=== PATIENT | male | born 1940 | race Caucasian/White ===

== ENCOUNTER 2018-09-25 14:52 | Inpatient (IN) ==
[2018-09-25] MEDS ORDERED: methylPREDNISolone 125 MG/2 ML VIAL ONE (15:08)
[2018-09-25] MEDS ORDERED: Ipratropium/Albuterol Neb 3 ML ONE ×2 (15:08→15:15)
[2018-09-25] MEDS ORDERED: Ipratropium/Albuterol Neb 3 ML IH ONE (15:12)
[2018-09-25] MEDS ORDERED: methylPREDNISolone 125 MG/2 ML VIAL IVP ONE (15:12)
[2018-09-25 15:14] LABS: ABG Base Excess 6 mEq/L (-2 to 3); ABG HCO3 37 mEq/L (21-27); ABG Oxygen Saturation 99 % (95-98); ABG PCO2 89 mmHg (35-45); ABG PH 7.23 pH Units (7.32-7.45); ABG PO2 198 mmHg (85-104); ABG TCO2 40 mEq/L (20-26)
[2018-09-25 15:28] LABS: Basophils % 0.3 %; Hematocrit 40.5 % (37.5-50.1); Hemoglobin 12.4 g/dL (12.9-16.9); Immature Granulocytes % 0.9 % (0-4); Lymphocytes # 0.3 K/mcL (0.6-4.6); Lymphocytes % 2.7 %; Mean Corpuscular HGB Conc 30.6 g/dL (31.6-35.5); Mean Corpuscular Hemoglobin 32.2 pg (28.0-33.3); Mean Corpuscular Volume 105.2 fL (83.0-100.0); Mean Platelet Volume 10.4 fL (9.4-12.4); Monocytes # 1.7 K/mcL (0.0-1.3); Monocytes % 13.3 %; Neutrophils # 10.4 K/mcL (1.6-8.9); Platelet Count 246 K/mcL (140-400); Red Blood Count 3.85 M/mcL (4.19-5.50); Red Cell Distribution Width 13.1 % (11.5-14.5); Segmented Neutrophils % 82.8 %; White Blood Count 12.6 K/mcL (4.3-11.1)
--- NOTE | 2018-09-25 15:35 | Emergency Department Note ---
Disposition Clinical Impression: COPD with acute exacerbation, Hyperkalemia, Acute kidney injury, Hypercarbia Respiratory failure Qualifiers: Chronicity: acute Respiratory failure complication: hypoxia and hypercapnia Qualified Code(s): J96.01 - Acute respiratory failure with hypoxia; J96.02 - Acute respiratory failure with hypercapnia Disposition: Still a Patient Condition: Critical Forms: ED Satisfaction Letter Time of Disposition: 17:47 General Adult HPI - General Stated complaint: MIQUEL Time Seen by Provider: 09/25/18 14:53 Source: EMS Limitations: altered mental status Nursing Notes Reviewed: Yes Vital Signs Reviewed: Yes - History of Present Illness HPI Narrative: 77-year-old male presents from home via EMS for evaluation after fall from bed. Per EMS, patient also has some shortness of breath that started yesterday. Family called EMS. Past medical history not collected secondary to patient's medical condition. Review systems not possible secondary to patient's medical condition. Pain Scale: 0 - Related Data Home Medications Medication Instructions Recorded Confirmed Albuterol Sulfate [Proventil 0 puff IH Q4HR PRN 09/25/18 09/25/18 Inhaler] Alendronate Sodium [Fosamax] 70 mg PO QWEEK 09/25/18 09/25/18 Benzonatate [Tessalon] 100 mg PO BID PRN 09/25/18 09/25/18 Budesonide/Formoterol 160/4.5 2 puff IH BIDR 09/25/18 09/25/18 [Symbicort 160/4.5] Calcium Carbonate 650 mg PO DAILY 09/25/18 09/25/18 Ipratropium Neb [Atrovent Neb] 0.5 mg IH Q4HR 09/25/18 09/25/18 Levalbuterol Neb [Xopenex Neb] 1.25 mg IH Q4H 09/25/18 09/25/18 Loratadine [Allergy Relief] 10 mg PO DAILY PRN 09/25/18 09/25/18 Multivitamin [Daily Multiple 1 each PO DAILY 09/25/18 09/25/18 Vitamin] Nicotine Patch [Nicoderm] 14 mg TD DAILY 09/25/18 09/25/18 Omeprazole [PriLOSEC] 20 mg PO DAILY 09/25/18 09/25/18 Sennosides/Docusate Sodium 2 each PO HS 09/25/18 09/25/18 [Senna-Docusate Sodium Tablet] Allergies Allergy/AdvReac Type Severity Reaction Status Date / Time No Known Allergies Allergy Verified 09/25/18 16:42 Limitations: ROS unobtainable due to patients medical condition Past Medical History - Past Medical History Medical history: Reports: COPD, GERD Psychiatric history: Reports: other - Social History Smoking Status: Current every day smoker Physical Exam Vital Signs Reviewed General: Patient is not alert, not answering questions. Evidence of tobacco smoke standing on his arboleda and mustache. He clinically appears protein malnourished. Head: atraumatic, normocephalic Eye: normal appearance, PERRL, EOMI, no scleral icterus, no conjunctival injection ENT: mucous membranes moist, normal external ear exam Neck: normal inspection, trachea midline, full ROM Chest: normal inspection, symmetric chest rise Respiratory: Poor respiratory effort. Prolonged expiratory phase. Bilateral breath sounds are quiet with very poor air entry despite accessory muscle usage. Cardiovascular: Regular rate and rhythm. No clicks, rubs, gallops, or murmors. Normal heart sounds. Abdomen: Scaphoid. Bowel sounds present normoactive. Abdomen is soft, nondistended, and nontender. No guarding or rebound. No organomegaly noted. Musculoskeletal: Spontaneously moving all extremities. Skin: warm, dry, intact. Neuro: GCS 6 (E4, V1, M1). No gag reflex. Psych: Patient's affect is appropriate for situation. - General Limitations: altered mental status General appearance: alert Course Course Narrative: Patient transferred from emergency department room 2 trauma bay in preparation for intubation. Concern for AE COPD with hypercapnea vs traumatic ICH. No external evidence of head trauma. His overall exam is most concerning from a pulmonary and mental status perspective. Reason for intubation is GCS of 6, he is unresponsive to questioning into pain. He has no gag reflex when using tongue depressor. He is nasal cannula. Pulse ox with good waveform shows oxygenation the mid 90s. Team was collected and prepared for RSI emergent intubation. Just prior to pushing the medications, patient was reassessed. He was able to turn his head and look at who is speaking in voluntarily raise one arm to command. RSI intubation on hold. Patient now GCS 12 (E4, V2, M6). Placed on BiPap. ABG shows hypercapnea. 30min on BiPap, patient has markedly improved. GCS 15. Patient would have been a very difficult extubation. [facility] with chronic stable lung nodules. Nicotine dependence on home O2 of 2-3 L/m continuous as well as at bedtime. He was last seen by their pulmonology August 23 or he was started on a p rednisone taper and Z-Koby. CT thorax 03/05 showed right upper lung scarring versus groundglass infiltrate. Cardiac echo 06/04 shows LVEF 30-35%. PMH: Severe COPD, chronic stable lung nodules, chronic environmental allergies, GERD, diverticular disease, chronic anemia, history of gallbladder sludge with transaminitis, osteoporosis with degenerative disc disease, carotid atherosclerosis, cataract Patient's daughter and grandson bedside. Discussed with them the available information at this time as well as plan of care. They are in agreement. Discussed with them the patient's wishes for CODE STATUS. They relay that he informed the [facility] he is to be full code. We will move forward with full CODE STATUS. All questions answered. 15:50 EKG dated 09/25/2018 at 15:07 interpreted as sinus tachycardia with a rate of 108. [place] 153, QRS 142, QTC 464. Upper branch block QRS is appropriately di scordant. No previous EKG for comparison. After proximal we 1 hour, patient's mentation did transiently improve with BiPAP. He did start to wheeze after the triple dose of DuoNeb's after which a triple dose of albuterol was ordered. After total ED stay of 2 hours, patient's mentation decompensated. He was not responsive to verbal or painful stimuli. His repeat ABG showed persistent resp iratory acidosis. I discussed this with the family. They were agreeable to moving forward with intubation. Patient was RSI intubated with etomidate. He was not paralyzed given his poor mental state. Patient was successfully intermittent first try by Dr. Talley. Post intubation sedation and analgesia with Precedex and fentanyl. Post intubation x-ray showed the tip of the ET tube is above the juanita. This was withdrawn 1 cm with no repeat imaging. NG tube was placed. Patient's potassium was 6.0. He was given 10 units IV insulin, one amp of D50, Kayexalate through the NG tube. Patient will need to be admitted to the ICU given his intubated status. CT head and C-spine are pending. He has been signed out to Dr. Adan with images pending. Vital Signs Temperature 97.0 F L 09/25/18 15:13 Pulse Rate 108 09/25/18 15:13 Respiratory Rate 28 09/25/18 15:13 Blood Pressure 102/60 09/25/18 15:13 O2 Sat by Pulse Oximetry 99 09/25/18 15:13 Temperature 97.0 F L 09/25/18 15:13 Pulse Rate 111 09/25/18 15:34 Respiratory Rate 25 09/25/18 15:34 Blood Pressure 123/82 09/25/18 15:34 O2 Sat by Pulse Oximetry 98 09/25/18 15:34 Oxygen Delivery Oxygen Delivery Bipap Medical Decision Making - Lab Data Result diagrams: 09/25/18 15:02 09/25/18 15:02 Lab Results 09/25/18 09/25/18 09/25/18 Range/Units 15:02 15:02 15:02 WBC 12.6 H (4.3-11.1) K/mcL RBC 3.85 L (4.19-5.50) M/mcL Hgb 12.4 L (12.9-16.9) g/dL Hct 40.5 (37.5-50.1) % MCV 105.2 H (83.0-100.0) fL MCH 32.2 (28.0-33.3) pg MCHC 30.6 L (31.6-35.5) g/dL RDW 13.1 (11.5-14.5) % Plt Count 246 (140-400) K/mcL MPV 10.4 (9.4-12.4) fL Immature Gran % 0.9 (0-4) % Seg Neutrophils % 82.8 % Lymphocytes % 2.7 % Monocytes % 13.3 % Eosinophils % 0.0 % Basophils % 0.3 % Neutrophils # 10.4 H (1.6-8.9) K/mcL Lymphocytes # 0.3 L (0.6-4.6) K/mcL Monocytes # 1.7 H (0.0-1.3) K/mcL Eosinophils # 0.0 (0.0-0.6) K/mcL Basophils # 0.0 (0.0-0.2) K/mcL ABG pH (7.32-7.45) pH Units ABG pCO2 (35-45) mmHg ABG pO2 (85-104) mmHg ABG HCO3 (21-27) mEq/L ABG Total CO2 (20-26) mEq/L ABG O2 Saturation (95-98) % ABG Base Excess (-2 to 3) mEq/L O2 Delivery Device Inspired O2 (1-15=lpm [id number]=%) Sodium 139 (136-145) mEq/L Potassium 6.0 H (3.5-5.1) mEq/L Chloride 93 L (98-107) mEq/L Carbon Dioxide 37 H (23-29) mEq/L BUN 29 H (8-23) mg/dL Creatinine 1.36 H (0.70-1.30) mg/dL Est GFR ( Amer) > 60 (> 60) Est GFR (Non-Af Amer) 51 L (> 60) BUN/Creatinine Ratio 21 (6-26) Glucose 146 H (70-105) mg/dL Calculated Osmolality 296 (280-300) Lactic Acid 0.9 (0.5-2.2) mmol/L Calcium 9.8 (8.6-10.3) mg/dL Troponin I < 0.03 (< 0.04) ng/mL Person Notif of Crit 09/25/18 Range/Units 15:09 WBC (4.3-11.1) K/mcL RBC (4.19-5.50) M/mcL Hgb (12.9-16.9) g/dL Hct (37.5-50.1) % MCV (83.0-100.0) fL MCH (28.0-33.3) pg MCHC (31.6-35.5) g/dL RDW (11.5-14.5) % Plt Count (140-400) K/mcL MPV (9.4-12.4) fL Immature Gran % (0-4) % Seg Neutrophils % % Lymphocytes % % Monocytes % % Eosinophils % % Basophils % % Neutrophils # (1.6-8.9) K/mcL Lymphocytes # (0.6-4.6) K/mcL Monocytes # (0.0-1.3) K/mcL Eosinophils # (0.0-0.6) K/mcL Basophils # (0.0-0.2) K/mcL ABG pH 7.23 L (7.32-7.45) pH Units ABG pCO2 89 H* (35-45) mmHg ABG pO2 198 H (85-104) mmHg ABG HCO3 37 H (21-27) mEq/L ABG Total CO2 40 H (20-26) mEq/L ABG O2 Saturation 99 H (95-98) % ABG Base Excess 6 H (-2 to 3) mEq/L O2 Delivery Device Cannula Inspired O2 3.0 (1-15=lpm [id number]=%) Sodium (136-145) mEq/L Potassium (3.5-5.1) mEq/L Chloride (98-107) mEq/L Carbon Dioxide (23-29) mEq/L BUN (8-23) mg/dL Creatinine (0.70-1.30) mg/dL Est GFR ( Amer) (> 60) Est GFR (Non-Af Amer) (> 60) BUN/Creatinine Ratio (6-26) Glucose (70-105) mg/dL Calculated Osmolality (280-300) Lactic Acid (0.5-2.2) mmol/L Calcium (8.6-10.3) mg/dL Troponin I (< 0.04) ng/mL Person Notif of [facility]
[2018-09-25] MEDS ORDERED: *HR* LORazepam 2 MG/ML VIAL IVP ONE (15:40)
--- NOTE | 2018-09-25 15:40 | Emergency Department Note ---
Disposition Clinical Impression: Acute respiratory failure Qualifiers: Respiratory failure complication: hypercapnia Qualified Code(s): J96.02 - Acute respiratory failure with hypercapnia Disposition: Admitted As Inpatient Condition: Serious [facility]errals: [facility] [Primary Care Provider] - Forms: ED Satisfaction Letter Time of Disposition: 17:36 General Adult HPI - General Chief complaint: ED Altered Mental Status Stated complaint: MIQUEL Time Seen by Provider: 09/25/18 14:53 Source: EMS Limitations: altered mental status - History of Present Illness Pain Scale: 0 - Related Data Home Medications Medication Instructions Recorded Confirmed Albuterol Sulfate [Proventil 0 puff IH Q4HR PRN 09/25/18 09/25/18 Inhaler] Alendronate Sodium [Fosamax] 70 mg PO QWEEK 09/25/18 09/25/18 Benzonatate [Tessalon] 100 mg PO BID PRN 09/25/18 09/25/18 Budesonide/Formoterol 160/4.5 2 puff IH BIDR 09/25/18 09/25/18 [Symbicort 160/4.5] Calcium Carbonate 650 mg PO DAILY 09/25/18 09/25/18 Ipratropium Neb [Atrovent Neb] 0.5 mg IH Q4HR 09/25/18 09/25/18 Levalbuterol Neb [Xopenex Neb] 1.25 mg IH Q4H 09/25/18 09/25/18 Loratadine [Allergy Relief] 10 mg PO DAILY PRN 09/25/18 09/25/18 Multivitamin [Daily Multiple 1 each PO DAILY 09/25/18 09/25/18 Vitamin] Nicotine Patch [Nicoderm] 14 mg TD DAILY 09/25/18 09/25/18 Omeprazole [PriLOSEC] 20 mg PO DAILY 09/25/18 09/25/18 Sennosides/Docusate Sodium 2 each PO HS 09/25/18 09/25/18 [Senna-Docusate Sodium Tablet] Allergies Allergy/AdvReac Type Severity Reaction Status Date / Time No Known Allergies Allergy Verified 09/25/18 16:42 Past Medical History - Past Medical History Medical history: Reports: COPD, GERD Psychiatric history: Reports: other - Social History Smoking Status: Current every day smoker Physical Exam - General Limitations: altered mental status General appearance: alert Course Vital Signs Temperature 97.0 F L 07/10/19 15:13 Pulse Rate 108 09/25/18 15:13 Respiratory Rate 28 09/25/18 15:13 Blood Pressure 102/60 09/25/18 15:13 O2 Sat by Pulse Oximetry 99 09/25/18 15:13 Temperature 97.0 F L 09/25/18 15:13 Pulse Rate 94 09/25/18 16:41 Respiratory Rate 16 09/25/18 16:41 Blood Pressure 81/58 09/25/18 16:44 O2 Sat by Pulse Oximetry 92 09/25/18 16:41 Oxygen Delivery Oxygen Delivery Bipap Medical Decision Making - Lab Data Result diagrams: 09/25/18 15:02 09/25/18 15:02 Lab Results 09/25/18 09/25/18 09/25/18 Range/Units 15:02 15:02 15:02 WBC 12.6 H (4.3-11.1) K/mcL RBC 3.85 L (4.19-5.50) M/mcL Hgb 12.4 L (12.9-16.9) g/dL Hct 40.5 (37.5-50.1) % MCV 105.2 H (83.0-100.0) fL MCH 32.2 (28.0-33.3) pg MCHC 30.6 L (31.6-35.5) g/dL RDW 13.1 (11.5-14.5) % Plt Count 246 (140-400) K/mcL MPV 10.4 (9.4-12.4) fL Immature Gran % 0.9 (0-4) % Seg Neutrophils % 82.8 % Lymphocytes % 2.7 % Monocytes % 13.3 % Eosinophils % 0.0 % Basophils % 0.3 % Neutrophils # 10.4 H (1.6-8.9) K/mcL Lymphocytes # 0.3 L (0.6-4.6) K/mcL Monocytes # 1.7 H (0.0-1.3) K/mcL Eosinophils # 0.0 (0.0-0.6) K/mcL Basophils # 0.0 (0.0-0.2) K/mcL ABG pH (7.32-7.45) pH Units ABG pCO2 (35-45) mmHg ABG pO2 (85-104) mmHg ABG HCO3 (21-27) mEq/L ABG Total CO2 (20-26) mEq/L ABG O2 Saturation (95-98) % ABG Base Excess (-2 to 3) mEq/L Respiration Rate O2 Delivery Device Inspired O2 (1-15=lpm [id number]=%) Tidal Volume cc PEEP cm H2O Sodium 139 (136-145) mEq/L Potassium 6.0 H (3.5-5.1) mEq/L Chloride 93 L (98-107) mEq/L Carbon Dioxide 37 H (23-29) mEq/L BUN 29 H (8-23) mg/dL Creatinine 1.36 H (0.70-1.30) mg/dL Est GFR ( Amer) > 60 (> 60) Est GFR (Non-Af Amer) 51 L (> 60) BUN/Creatinine Ratio 21 (6-26) Glucose 146 H (70-105) mg/dL Calculated Osmolality 296 (280-300) Lactic Acid 0.9 (0.5-2.2) mmol/L Calcium 9.8 (8.6-10.3) mg/dL Creatine Kinase 55 (30-223) Units/L Troponin I < 0.03 (< 0.04) ng/mL B-Natriuretic Peptide (Less than 100) pg/mL Person Notif of Crit 09/25/18 09/25/18 09/25/18 Range/Units 15:02 15:09 16:28 WBC (4.3-11.1) K/mcL RBC (4.19-5.50) M/mcL Hgb (12.9-16.9) g/dL Hct (37.5-50.1) % MCV (83.0-100.0) fL MCH (28.0-33.3) pg MCHC (31.6-35.5) g/dL RDW (11.5-14.5) % Plt Count (140-400) K/mcL MPV (9.4-12.4) fL Immature Gran % (0-4) % Seg Neutrophils % % Lymphocytes % % Monocytes % % Eosinophils % % Basophils % % Neutrophils # (1.6-8.9) K/mcL Lymphocytes # (0.6-4.6) K/mcL Monocytes # (0.0-1.3) K/mcL Eosinophils # (0.0-0.6) K/mcL Basophils # (0.0-0.2) K/mcL ABG pH 7.23 L 7.27 L (7.32-7.45) pH Units ABG pCO2 89 H* 80 H* (35-45) mmHg ABG pO2 198 H 64 L D (85-104) mmHg ABG HCO3 37 H 37 H (21-27) mEq/L ABG Total CO2 40 H 40 H (20-26) mEq/L ABG O2 Saturation 99 H 87 L (95-98) % ABG Base Excess 6 H 7 H (-2 to 3) mEq/L Respiration Rate 10 O2 Delivery Device Cannula BiPAP Inspired O2 3.0 28.0 (1-15=lpm [id number]=%) Tidal Volume 500 cc PEEP 8 cm H2O Sodium (136-145) mEq/L Potassium (3.5-5.1) mEq/L Chloride (98-107) mEq/L Carbon Dioxide (23-29) mEq/L BUN (8-23) mg/dL Creatinine (0.70-1.30) mg/dL Est GFR ( Amer) (> 60) Est GFR (Non-Af Amer) (> 60) BUN/Creatinine Ratio (6-26) Glucose (70-105) mg/dL Calculated Osmolality (280-300) Lactic Acid (0.5-2.2) mmol/L Calcium (8.6-10.3) mg/dL Creatine Kinase (30-223) Units/L Troponin I (< 0.04) ng/mL B-Natriuretic Peptide 126 H (Less than 100) pg/mL Person Notif of Kimmy Jenniabig[facility] whipple see Attestation Statement - Attestation Attestation: I examined this patient and my medical decision-making was reviewed with the Resident Physician. I agree with the documented findings, disposition and treatment plan as described except to the extent set forth below. Patient presents to the ED from home. Family called because he fell out of bed. He is also been having difficulty breathing for a day. No further history is provided, and patient cannot tell you anything. On examination he is in a moderate amount of respiratory distress. Accessory muscle use. Diffuse expiratory wheezing and decreased air exchange. Sats are 97 on oxygen. Plan. The patient was in restaurant distress and poorly responsive. He was able to follow some basic commands. We emigdio an ABG that shows hypercapnia with a restaurant acidosis. He is placed on BiPAP. 3. Steroids. We will give him antibiotics as well. Patient will be admitted. Repeat ABG in 1 hour. Repeat ABG is improved. PH is corrected. CO2 is improved. Awaiting head CT and neck CT. Will be admitted to medicine. Patient had improvement, and then decompensated. Patient became unresponsive. Increased work of breathing. We did make the decision to intubate the patient. He was intubated by with my supervision. 7.5 ET tube. X-ray pending at this time. CT is still pending. Placing sedation orders. Patient's all be admitted to ICU. Patient signed out to Dr. Adan pending CT scans and admission. Hyperkalemia was treated.
[2018-09-25 15:44] LABS: BUN/Creatinine Ratio 21 (6-26); Blood Urea Nitrogen 29 mg/dL (8-23); Calcium 9.8 mg/dL (8.6-10.3); Carbon Dioxide 37 mEq/L (23-29); Chloride 93 mEq/L (98-107); Glucose 146 mg/dL (70-105); Osmolality,Calculated 296 (280-300); Sodium 139 mEq/L (136-145); eGFR For African Americans > 60 (> 60); eGFR For Non-African Americans 51 (> 60)
[2018-09-25 15:45] LABS: Troponin I < 0.03 ng/mL (< 0.04)
[2018-09-25 16:34] LABS: ABG Base Excess 7 mEq/L (-2 to 3); ABG HCO3 37 mEq/L (21-27); ABG Oxygen Saturation 87 % (95-98); ABG PCO2 80 mmHg (35-45); ABG PH 7.27 pH Units (7.32-7.45); ABG PO2 64 mmHg (85-104); ABG TCO2 40 mEq/L (20-26); Blood Gas PEEP 8 cm H2O; Blood Gas VT 500 cc
[2018-09-25] MEDS ORDERED: cefTRIAXone 1,000 MG in 0.9 % Sodium Chloride Mini Bag 100 ML IVPB ONE (16:35)
[2018-09-25] MEDS ORDERED: 0.9 % Sodium Chloride 500 ML IVC ONE (16:35)
[2018-09-25] MEDS ORDERED: Azithromycin 500 MG in D5% in Water 250 ML IVPB ONE (16:35)
[2018-09-25] MEDS: 0.9 % Sodium Chloride 1,000 ML ONE ×2 (16:36→16:38)
[2018-09-25] MEDS ORDERED: Albuterol 2.5 MG/3 ML NEBULIZER IH ONE (16:55)
[2018-09-25] MEDS ORDERED: *HR* Dextrose 50 % in Water (Syg) 50 ML SYRINGE IVP ONE (17:05)
[2018-09-25] MEDS ORDERED: Insulin Human Regular 10 UNIT in 0.9 % Sodium Chloride 10 ML IV ONE (17:05)
[2018-09-25] MEDS ORDERED: Dexmedetomidine HCl 400 MCG/100 ML MLS IVC ONE (17:13)
[2018-09-25] MEDS ORDERED: *HR* Etomidate 20 MG/10 ML AMPUL IVP ONE (17:20)
[2018-09-25] MEDS ORDERED: *HR* FentaNYL (PF) 100 MCG/2 ML VIAL ONE (17:20)
[2018-09-25] MEDS ORDERED: *HR* Midazolam HCl 5 MG/5 ML VIAL IVP ONE (17:20)
[2018-09-25 17:23] LABS: Creatine Kinase 55 Units/L (30-223)
[2018-09-25] MEDS ORDERED: *HR* FentaNYL (PF) 100 MCG/2 ML VIAL IVP ONE (17:23)
[2018-09-25] MEDS: Dexmedetomidine HCl 400 MCG/100 ML MLS IVC SCH (17:40)
[2018-09-25] MEDS: FentaNYL (PF) 1,000 MCG in 0.9 % Sodium Chloride 80 ML IVC SCH (17:41)
--- NOTE | 2018-09-25 17:43 | Emergency Department Note ---
Disposition Clinical Impression: COPD with acute exacerbation, Hyperkalemia, Acute kidney injury, Hypercarbia Acute respiratory failure Qualifiers: Respiratory failure complication: hypercapnia Qualified Code(s): J96.02 - Acute respiratory failure with hypercapnia Respiratory failure Qualifiers: Chronicity: acute Respiratory failure complication: hypoxia and hypercapnia Qualified Code(s): J96.01 - Acute respiratory failure with hypoxia; J96.02 - Acute respiratory failure with hypercapnia Hypotension Qualifiers: Hypotension type: hypotension due to hypovolemia Qualified Code(s): I95.89 - Other hypotension; E86.1 - Hypovolemia Disposition: Admitted As Inpatient Condition: Critical [facility]: [facility]Primary Care Provider[facility] - Forms: ED Satisfaction Letter Time of Disposition: 18:46 General Adult HPI - General Chief complaint: ED Altered Mental Status Stated complaint: MIQUEL Time Seen by Provider: 09/25/18 14:53 Source: EMS Limitations: altered mental status Nursing Notes Reviewed: Yes Vital Signs Reviewed: Yes - History of Present Illness HPI Narrative: Patient signed out to my care at 1741 by the departing ED attending and resident team of Dr. Jenni PIERRE and Tommy Aceves. Please see copy their note for details of the history physical examination evaluation management intubation ventilator management and sedation up into the point of sign out. Basically patient was COPD came in respiratory failure failed BiPAP got intubated is on fentanyl and Precedex now patient did fall getting a CT scan of the head and the C-spine ICU resident is already being notified patient will be admitted to the hospitalist to the intensive care unit after CT scans are reviewed. Admission disposition pending Pain Scale: 0 - Related Data Home Medications Medication Instructions Recorded Confirmed Albuterol Sulfate [Proventil 0 puff IH Q4HR PRN 09/25/18 09/25/18 Inhaler] Alendronate Sodium [Fosamax] 70 mg PO QWEEK 09/25/18 09/25/18 Benzonatate [Tessalon] 100 mg PO BID PRN 09/25/18 09/25/18 Budesonide/Formoterol 160/4.5 2 puff IH BIDR 09/25/18 09/25/18 [Symbicort 160/4.5] Calcium Carbonate 650 mg PO DAILY 09/25/18 09/25/18 Ipratropium Neb [Atrovent Neb] 0.5 mg IH Q4HR 09/25/18 09/25/18 Levalbuterol Neb [Xopenex Neb] 1.25 mg IH Q4H 09/25/18 09/25/18 Loratadine [Allergy Relief] 10 mg PO DAILY PRN 09/25/18 09/25/18 Multivitamin [Daily Multiple 1 each PO DAILY 09/25/18 09/25/18 Vitamin] Nicotine Patch [Nicoderm] 14 mg TD DAILY 09/25/18 09/25/18 Omeprazole [PriLOSEC] 20 mg PO DAILY 09/25/18 09/25/18 Sennosides/Docusate Sodium 2 each PO HS 09/25/18 09/25/18 [Senna-Docusate Sodium Tablet] Allergies Allergy/AdvReac Type Severity Reaction Status Date / Time No Known Allergies Allergy Verified 09/25/18 16:42 Past Medical History - Past Medical History Medical history: Reports: COPD, GERD Psychiatric history: Reports: other - Social History Smoking Status: Current every day smoker Physical Exam - General Limitations: altered mental status General appearance: alert Course - Reevaluation(s) Reevaluation #1: Patient's ED workup is complete. Patient's CT scan of the head and the C-spine read by radiology as no acute process fracture or dislocation. Patient's chest x-ray showed the ET tube about 1/2 cm too deep respiratory therapy pulled back. Patient was transported came back from CT scan when he had a towel down the Precedex and the fentanyl became a little hypotensive in the low 80s high 70s patient is getting a liter bolus. Discussed case with the hospitalist Dr. Osuna patient was accepted to the ICU for respiratory failure hypertension and COPD. I provided an additional 30 minutes critical care service. ICU RESIDENT DR. LEON evaluated the patient in the emergency department. Patient be transferred to the ICU in stable but guarded condition Time: 18:44 Vital Signs Temperature 97.0 F L 09/25/18 15:13 Pulse Rate 108 09/25/18 15:13 Respiratory Rate 28 09/25/18 15:13 Blood Pressure 102/60 09/25/18 15:13 O2 Sat by Pulse Oximetry 99 09/25/18 15:13 Temperature 97.0 F L 09/25/18 15:13 Pulse Rate 82 09/25/18 18:41 Respiratory Rate 14 09/25/18 18:41 Blood Pressure 94/67 09/25/18 18:41 O2 Sat by Pulse Oximetry 95 09/25/18 18:41 Oxygen Delivery Oxygen Delivery Ventilator Medical Decision Making - Lab Data Result diagrams: 09/25/18 15:02 09/25/18 15:02 Lab Results 09/25/18 09/25/18 09/25/18 Range/Units 15:02 15:02 15:02 WBC 12.6 H (4.3-11.1) K/mcL RBC 3.85 L (4.19-5.50) M/mcL Hgb 12.4 L (12.9-16.9) g/dL Hct 40.5 (37.5-50.1) % MCV 105.2 H (83.0-100.0) fL MCH 32.2 (28.0-33.3) pg MCHC 30.6 L (31.6-35.5) g/dL RDW 13.1 (11.5-14.5) % Plt Count 246 (140-400) K/mcL MPV 10.4 (9.4-12.4) fL Immature Gran % 0.9 (0-4) % Seg Neutrophils % 82.8 % Lymphocytes % 2.7 % Monocytes % 13.3 % Eosinophils % 0.0 % Basophils % 0.3 % Neutrophils # 10.4 H (1.6-8.9) K/mcL Lymphocytes # 0.3 L (0.6-4.6) K/mcL Monocytes # 1.7 H (0.0-1.3) K/mcL Eosinophils # 0.0 (0.0-0.6) K/mcL Basophils # 0.0 (0.0-0.2) K/mcL ABG pH (7.32-7.45) pH Units ABG pCO2 (35-45) mmHg ABG pO2 (85-104) mmHg ABG HCO3 (21-27) mEq/L ABG Total CO2 (20-26) mEq/L ABG O2 Saturation (95-98) % ABG Base Excess (-2 to 3) mEq/L Respiration Rate O2 Delivery Device Blood Gas Modality Inspired O2 (1-15=lpm ir31-175=%) Tidal Volume cc PEEP cm H2O Sodium 139 (136-145) mEq/L Potassium 6.0 H (3.5-5.1) mEq/L Chloride 93 L (98-107) mEq/L Carbon Dioxide 37 H (23-29) mEq/L BUN 29 H (8-23) mg/dL Creatinine 1.36 H (0.70-1.30) mg/dL Est GFR ( Amer) > 60 (> 60) Est GFR (Non-Af Amer) 51 L (> 60) BUN/Creatinine Ratio 21 (6-26) Glucose 146 H (70-105) mg/dL Calculated Osmolality 296 (280-300) Lactic Acid 0.9 (0.5-2.2) mmol/L Calcium 9.8 (8.6-10.3) mg/dL Creatine Kinase 55 (30-223) Units/L Troponin I < 0.03 (< 0.04) ng/mL B-Natriuretic Peptide (Less than 100) pg/mL Person Notif of Crit 09/25/18 09/25/18 09/25/18 Range/Units 15:02 15:09 16:28 WBC (4.3-11.1) K/mcL RBC (4.19-5.50) M/mcL Hgb (12.9-16.9) g/dL Hct (37.5-50.1) % MCV (83.0-100.0) fL MCH (28.0-33.3) pg MCHC (31.6-35.5) g/dL RDW (11.5-14.5) % Plt Count (140-400) K/mcL MPV (9.4-12.4) fL Immature Gran % (0-4) % Seg Neutrophils % % Lymphocytes % % Monocytes % % Eosinophils % % Basophils % % Neutrophils # (1.6-8.9) K/mcL Lymphocytes # (0.6-4.6) K/mcL Monocytes # (0.0-1.3) K/mcL Eosinophils # (0.0-0.6) K/mcL Basophils # (0.0-0.2) K/mcL ABG pH 7.23 L 7.27 L (7.32-7.45) pH Units ABG pCO2 89 H* 80 H* (35-45) mmHg ABG pO2 198 H 64 L D (85-104) mmHg ABG HCO3 37 H 37 H (21-27) mEq/L ABG Total CO2 40 H 40 H (20-26) mEq/L ABG O2 Saturation 99 H 87 L (95-98) % ABG Base Excess 6 H 7 H (-2 to 3) mEq/L Respiration Rate 10 O2 Delivery Device Cannula BiPAP Blood Gas Modality Inspired O2 3.0 28.0 (1-15=lpm rq16-075=%) Tidal Volume 500 cc PEEP 8 cm H2O Sodium (136-145) mEq/L Potassium (3.5-5.1) mEq/L Chloride (98-107) mEq/L Carbon Dioxide (23-29) mEq/L BUN (8-23) mg/dL Creatinine (0.70-1.30) mg/dL Est GFR ( Amer) (> 60) Est GFR (Non-Af Amer) (> 60) BUN/Creatinine Ratio (6-26) Glucose (70-105) mg/dL Calculated Osmolality (280-300) Lactic Acid (0.5-2.2) mmol/L Calcium (8.6-10.3) mg/dL Creatine Kinase (30-223) Units/L Troponin I (< 0.04) ng/mL B-Natriuretic Peptide 126 H (Less than 100) pg/mL Person Notif of [facility] see 09/25/18 Range/Units 18:14 WBC (4.3-11.1) K/mcL RBC (4.19-5.50) M/mcL Hgb (12.9-16.9) g/dL Hct (37.5-50.1) % MCV (83.0-100.0) fL MCH (28.0-33.3) pg MCHC (31.6-35.5) g/dL RDW (11.5-14.5) % Plt Count (140-400) K/mcL MPV (9.4-12.4) fL Immature Gran % (0-4) % Seg Neutrophils % % Lymphocytes % % Monocytes % % Eosinophils % % Basophils % % Neutrophils # (1.6-8.9) K/mcL Lymphocytes # (0.6-4.6) K/mcL Monocytes # (0.0-1.3) K/mcL Eosinophils # (0.0-0.6) K/mcL Basophils # (0.0-0.2) K/mcL ABG pH 7.31 L (7.32-7.45) pH Units ABG pCO2 69 H (35-45) mmHg ABG pO2 200 H D (85-104) mmHg ABG HCO3 35 H (21-27) mEq/L ABG Total CO2 37 H (20-26) mEq/L ABG O2 Saturation 100 H (95-98) % ABG Base Excess 7 H (-2 to 3) mEq/L Respiration Rate 14 O2 Delivery Device Adult Vent Blood Gas Modality ASSIST CONTROL Inspired O2 50.0 (1-15=lpm dp04-203=%) Tidal Volume 500 cc PEEP 5 cm H2O Sodium (136-145) mEq/L Potassium (3.5-5.1) mEq/L Chloride (98-107) mEq/L Carbon Dioxide (23-29) mEq/L BUN (8-23) mg/dL Creatinine (0.70-1.30) mg/dL Est GFR ( Amer) (> 60) Est GFR (Non-Af Amer) (> 60) BUN/Creatinine Ratio (6-26) Glucose (70-105) mg/dL Calculated Osmolality (280-300) Lactic Acid (0.5-2.2) mmol/L Calcium (8.6-10.3) mg/dL Creatine Kinase (30-223) Units/L Troponin I (< 0.04) ng/mL B-Natriuretic Peptide (Less than 100) pg/mL Person Notif of Crit
--- NOTE | 2018-09-25 17:46 | Emergency Department Note ---
Disposition Clinical Impression: COPD with acute exacerbation, Hyperkalemia, Acute kidney injury, Hypercarbia, Hypotension Acute respiratory failure Qualifiers: Respiratory failure complication: hypercapnia Qualified Code(s): J96.02 - Acute respiratory failure with hypercapnia Respiratory failure Qualifiers: Chronicity: acute Respiratory failure complication: hypoxia and hypercapnia Qualified Code(s): J96.01 - Acute respiratory failure with hypoxia Disposition: Admitted As Inpatient Condition: Critical Time of Disposition: 17:51 General Adult HPI - General Chief complaint: ED Altered Mental Status Stated complaint: MIQUEL Time Seen by Provider: 09/25/18 14:53 Source: EMS Limitations: altered mental status - History of Present Illness HPI Narrative: This note is for a resident procedure note only for endotracheal intubation. Pain Scale: 0 - Related Data Home Medications Medication Instructions Recorded Confirmed Albuterol Sulfate [Proventil 0 puff IH Q4HR PRN 09/25/18 09/25/18 Inhaler] Alendronate Sodium [Fosamax] 70 mg PO QWEEK 09/25/18 09/25/18 Benzonatate [Tessalon] 100 mg PO BID PRN 09/25/18 09/25/18 Budesonide/Formoterol 160/4.5 2 puff IH BIDR 09/25/18 09/25/18 [Symbicort 160/4.5] Calcium Carbonate 650 mg PO DAILY 09/25/18 09/25/18 Ipratropium Neb [Atrovent Neb] 0.5 mg IH Q4HR 09/25/18 09/25/18 Levalbuterol Neb [Xopenex Neb] 1.25 mg IH Q4H 09/25/18 09/25/18 Loratadine [Allergy Relief] 10 mg PO DAILY PRN 09/25/18 09/25/18 Multivitamin [Daily Multiple 1 each PO DAILY 09/25/18 09/25/18 Vitamin] Nicotine Patch [Nicoderm] 14 mg TD DAILY 09/25/18 09/25/18 Omeprazole [PriLOSEC] 20 mg PO DAILY 09/25/18 09/25/18 Sennosides/Docusate Sodium 2 each PO HS 09/25/18 09/25/18 [Senna-Docusate Sodium Tablet] Allergies Allergy/AdvReac Type Severity Reaction Status Date / Time No Known Allergies Allergy Verified 09/25/18 16:42 Past Medical History - Past Medical History Medical history: Reports: COPD, GERD Psychiatric history: Reports: other - Social History Smoking Status: Current every day smoker Physical Exam - General Limitations: altered mental status General appearance: alert Course Vital Signs Temperature 97.0 F L 09/25/18 15:13 Pulse Rate 108 09/25/18 15:13 Respiratory Rate 28 09/25/18 15:13 Blood Pressure 102/60 09/25/18 15:13 O2 Sat by Pulse Oximetry 99 09/25/18 15:13 Temperature 97.0 F L 09/25/18 15:13 Pulse Rate 94 09/25/18 16:41 Respiratory Rate 16 09/25/18 16:41 Blood Pressure 81/58 09/25/18 16:44 O2 Sat by Pulse Oximetry 92 09/25/18 16:41 Oxygen Delivery Oxygen Delivery Bipap Procedures - Intubation Time out performed: Yes sedative: Etomidate Mg Given: 20 Laryngoscope: Douglas ET Tube Size: 7.5 ET Tube Uncuffed: Yes Tube Secured Depth (cm): 23 Tube Secured Location: lips Tube Placement Confirmation: visualized tube passing through cords, equal breath sounds bilaterally, no breath sounds over epigastrium Patient Tolerated Procedure: well Intubation Complications: none Additional Comments: Patient was given 10 mg of Versed after the procedure as he was fighting the tube, chest x-ray showed that the tube was at the juanita so we withdrew 1 cm The patient was sedated with Precedex and fentanyl as propofol was not considered an appropriate choice due to fears of hypotension. Medical Decision Making - Lab Data Result diagrams: 09/27/18 03:55 09/27/18 03:55 Lab Results 09/25/18 09/25/18 09/25/18 Range/Units 15:02 15:02 15:02 WBC 12.6 H (4.3-11.1) K/mcL RBC 3.85 L (4.19-5.50) M/mcL Hgb 12.4 L (12.9-16.9) g/dL Hct 40.5 (37.5-50.1) % MCV 105.2 H (83.0-100.0) fL MCH 32.2 (28.0-33.3) pg MCHC 30.6 L (31.6-35.5) g/dL RDW 13.1 (11.5-14.5) % Plt Count 246 (140-400) K/mcL MPV 10.4 (9.4-12.4) fL Immature Gran % 0.9 (0-4) % Seg Neutrophils % 82.8 % Lymphocytes % 2.7 % Monocytes % 13.3 % Eosinophils % 0.0 % Basophils % 0.3 % Neutrophils # 10.4 H (1.6-8.9) K/mcL Lymphocytes # 0.3 L (0.6-4.6) K/mcL Monocytes # 1.7 H (0.0-1.3) K/mcL Eosinophils # 0.0 (0.0-0.6) K/mcL Basophils # 0.0 (0.0-0.2) K/mcL ABG pH (7.32-7.45) pH Units ABG pCO2 (35-45) mmHg ABG pO2 (85-104) mmHg ABG HCO3 (21-27) mEq/L ABG Total CO2 (20-26) mEq/L ABG O2 Saturation (95-98) % ABG Base Excess (-2 to 3) mEq/L Respiration Rate O2 Delivery Device Inspired O2 (1-15=lpm ao58-691=%) Tidal Volume cc PEEP cm H2O Sodium 139 (136-145) mEq/L Potassium 6.0 H (3.5-5.1) mEq/L Chloride 93 L (98-107) mEq/L Carbon Dioxide 37 H (23-29) mEq/L BUN 29 H (8-23) mg/dL Creatinine 1.36 H (0.70-1.30) mg/dL Est GFR ( Amer) > 60 (> 60) Est GFR (Non-Af Amer) 51 L (> 60) BUN/Creatinine Ratio 21 (6-26) Glucose 146 H (70-105) mg/dL Calculated Osmolality 296 (280-300) Lactic Acid 0.9 (0.5-2.2) mmol/L Calcium 9.8 (8.6-10.3) mg/dL Creatine Kinase 55 (30-223) Units/L Troponin I < 0.03 (< 0.04) ng/mL B-Natriuretic Peptide (Less than 100) pg/mL Person Notif of Crit 09/25/18 09/25/18 09/25/18 Range/Units 15:02 15:09 16:28 WBC (4.3-11.1) K/mcL RBC (4.19-5.50) M/mcL Hgb (12.9-16.9) g/dL Hct (37.5-50.1) % MCV (83.0-100.0) fL MCH (28.0-33.3) pg MCHC (31.6-35.5) g/dL RDW (11.5-14.5) % Plt Count (140-400) K/mcL MPV (9.4-12.4) fL Immature Gran % (0-4) % Seg Neutrophils % % Lymphocytes % % Monocytes % % Eosinophils % % Basophils % % Neutrophils # (1.6-8.9) K/mcL Lymphocytes # (0.6-4.6) K/mcL Monocytes # (0.0-1.3) K/mcL Eosinophils # (0.0-0.6) K/mcL Basophils # (0.0-0.2) K/mcL ABG pH 7.23 L 7.27 L (7.32-7.45) pH Units ABG pCO2 89 H* 80 H* (35-45) mmHg ABG pO2 198 H 64 L D (85-104) mmHg ABG HCO3 37 H 37 H (21-27) mEq/L ABG Total CO2 40 H 40 H (20-26) mEq/L ABG O2 Saturation 99 H 87 L (95-98) % ABG Base Excess 6 H 7 H (-2 to 3) mEq/L Respiration Rate 10 O2 Delivery Device Cannula BiPAP Inspired O2 3.0 28.0 (1-15=lpm by63-007=%) Tidal Volume 500 cc PEEP 8 cm H2O Sodium (136-145) mEq/L Potassium (3.5-5.1) mEq/L Chloride (98-107) mEq/L Carbon Dioxide (23-29) mEq/L BUN (8-23) mg/dL Creatinine (0.70-1.30) mg/dL Est GFR ( Amer) (> 60) Est GFR (Non-Af Amer) (> 60) BUN/Creatinine Ratio (6-26) Glucose (70-105) mg/dL Calculated Osmolality (280-300) Lactic Acid (0.5-2.2) mmol/L Calcium (8.6-10.3) mg/dL Creatine Kinase (30-223) Units/L Troponin I (< 0.04) ng/mL B-Natriuretic Peptide 126 H (Less than 100) pg/mL Person Notif of Kimmy whipple see Attestation Statement - Attestation Attestation: I was present for and supervised the intubation.
[2018-09-25 18:19] LABS: ABG Base Excess 7 mEq/L (-2 to 3); ABG HCO3 35 mEq/L (21-27); ABG Oxygen Saturation 100 % (95-98); ABG PCO2 69 mmHg (35-45); ABG PH 7.31 pH Units (7.32-7.45); ABG PO2 200 mmHg (85-104); ABG TCO2 37 mEq/L (20-26); Blood Gas Modality ASSIST CONTROL; Blood Gas PEEP 5 cm H2O; Blood Gas VT 500 cc
[2018-09-25] MEDS ORDERED: Artificial Tears SOLN 15 ML BOTTLE BOTH EYES PRN (18:34)
[2018-09-25] MEDS ORDERED: Calcium Gluconate 1gm/50mL 1 GM/50 ML BAG IVPB PRN (18:39)
[2018-09-25] MEDS ORDERED: Potassium Phosphate 44 MEQ in 0.9 % Sodium Chloride 250 ML IVPB PRN (18:39)
[2018-09-25] MEDS ORDERED: 0.9 % Sodium Chloride 1,000 ML IVC ONE (18:41)
[2018-09-25] MEDS ORDERED: *HR* Norepinephrine 4 MG/4 ML VIAL IVC ONE (19:45)
[2018-09-25] MEDS ORDERED: D5% in Water 250 ML ONE (19:45)
[2018-09-25] MEDS ORDERED: 0.9 % Sodium Chloride 1,000 ML ONE (19:45)
[2018-09-25] MEDS: Budesonide/Formoterol 160/4.5 1 PUFF INH IH SCH (19:55)
[2018-09-25] MEDS ORDERED: Naloxone 0.4 MG/ML INJ IVP PRN (20:05)
--- NOTE | 2018-09-25 20:20 | Procedure Note ---
Date of procedure: 09/25/18 Pre-op diagnosis: hypotension Post-op diagnosis: same Procedure: Central Venous Catheter (CVC, Central Line) Placement Indication: Hemodynamic monitoring/Intravenous access A time-out was completed verifying correct patient, procedure, site, positioning, and special equipment if applicable. The patient was placed in a dependent position appropriate for central line placement based on the vein to be cannulated. The patients right neck was prepped and draped in sterile fashion. 1% Lidocaine was used to anesthetize the surrounding skin area. A triple lumen 9-[place] Cordis catheter was introduced into the the right internal jugular using the Seldinger technique and under ultrasound guidance. The catheter was threaded smoothly over the guide wire and appropriate blood return was obtained. Each lumen of the catheter was evacuated of air and flushed with sterile saline. The catheter was then sutured in place to the skin and a sterile dressing applied. Perfusion to the extremity distal to the point of catheter insertion was checked and found to be adequate. Attending/Resident was present for the entire procedure. Estimated Blood Loss: 5cc The patient tolerated the procedure well and there were no complications. Anesthesia: local Surgeon: Luis Ramirez Was there an assistant community director present: Yes Weigher And Mixer: Jonah Ridley Estimated blood loss (cc): 5 IV fluids (cc): 0 Urine output (cc): 0 Specimen: none Pathology: none sent Condition: critical Disposition: ICU
[2018-09-25] MEDS: Norepinephrine 4 MG in D5% in Water 250 ML IVC SCH (20:42)
--- NOTE | 2018-09-25 20:43 | Internal Med History&Physical ---
<Peyton Spencer R - Last Filed: 09/25/18 22:11> Date of Encounter: 09/25/18 Time of Encounter: 21:34 Internal Medicine - H&P: HPI History of present illness: Mr. Higgins is a 77 year old male with history of COPD on 2-3 L oxygen daily, GERD, chronic anemia who presented to the emergency department on 09/25/18 from home secondary to a fall and shortness of breath. Over the last 1-2 days the patient has had decreased activity at home, decreased appetite per family and was found sleeping at approximately 1 PM after falling out of the bed by his who called EMS. The patient's initial GCS was 6 and the emergency Department staff placed the patient on high flow nasal cannula and prepared for intubation, but with continued oxygenation the patient's mental status improved. GCS returned to 15 therefore he was placed on BiPAP and further workup was obtained. Laboratory evaluation shows slight leukocytosis up to 12.6, mild anemia of hemoglobin 12.4. Initial ABG shows acidosis with pH of 7.23 and hypercapnia with PCO2 of 89. Patient had mild improvement in his hypercapnia with BiPAP. BMP shows hyperkalemia of 6.0, elevated creatinine to 1.36 with BUN of 29, gl ucose 146, BNP 126, troponin less than 0.03, lactate 0.9 and CK 55. The patient did have evidence of peaked T waves on his EKG therefore the patient was given IV insulin with dextrose, DuoNeb's and Kayexalate. After giving the patient a trial of BiPAP he had acute decline in his mental status again and became unresponsive therefore the patient underwent rapid sequence intubation. Chest x-ray shows no significant pulmonary edema or focal consolidation. CT head and cervical spine were obtained and negative for acute fracture or acute intracranial pathology therefore he was admitted to the intensive care unit. History was obtained predominantly through the family who was present and they d id confirm that he is full code. After admission the patient remained hypotensive therefore a central line was placed for IV pressors while the patient was still in the ED. Past Med Surg Social Fam HX - Past Medical History Source: old records reviewed, obtained from family Medical history: COPD, GERD Additional medical history: PER EMS AND FAMILY Psychiatric history: other - Past Surgical History Additional surgical history: [facility]ANBLE TO [facility] AT THIS TIME - Social History Smoking Status: Current every day smoker Internal Medicine - H&P: Meds Albuterol Sulfate [Proventil Inhaler] 0 puff IH Q4HR PRN 09/25/18 [History] Alendronate Sodium [Fosamax] 70 mg PO QWEEK 09/25/18 [History] Benzonatate [Tessalon] 100 mg PO BID PRN 09/25/18 [History] Budesonide/Formoterol 160/4.5 [Symbicort 160/4.5] 2 puff IH BIDR 09/25/18 [His tory] Calcium Carbonate 650 mg PO DAILY 09/25/18 [History] Ipratropium Neb [Atrovent Neb] 0.5 mg IH Q4HR 09/25/18 [History] Levalbuterol Neb [Xopenex Neb] 1.25 mg IH Q4H 09/25/18 [History] Loratadine [Allergy Relief] 10 mg PO DAILY PRN 09/25/18 [History] Multivitamin [Daily Multiple Vitamin] 1 each PO DAILY 09/25/18 [History] Nicotine Patch [Nicoderm] 14 mg TD DAILY 09/25/18 [History] Omeprazole [PriLOSEC] 20 mg PO DAILY 09/25/18 [History] Sennosides/Docusate Sodium [Senna-Docusate Sodium Tablet] 2 each PO HS 09/25/18 [History] Allergy/AdvReac Type Severity Reaction Status Date / Time No Known Allergies Allergy Verified 09/25/18 16:42 ROS unobtainable: due to endotracheal tube All Systems PM: A 10-system review of systems was performed and is negative for pertinent findings except as documented above in the HPI. - Constitutional Vitals: Temp Pulse Resp BP Pulse Ox 97.0 F L 68 15 75/55 94 09/25/18 15:13 09/25/18 19:13 09/25/18 19:13 09/25/18 19:13 09/25/18 19:13 Exam: Pt is intubated and sedated, unable to answer questions at this time - Head Additional comments: Hematoma noted underneath left eye without other signs of trauma - Eye Eye exam: Present: EOMI, PERRL - ENT Additional comments: Intubated. No signs of external trauma to ears or nose. - Neck Neck exam general surgery: Present: normal inspection - Respiratory Additional comments: Diffuse wheezing heard throughout all lung gustafson with diminished air movement - Cardiovascular Cardiovascular exam: Present: RRR - GI/Abdominal GI/Abdominal exam: Present: soft. Absent: distended, firm, guarding, rebound, rigid - Extremities Exam Extremities exam: Absent: pedal edema - Neurological Exam Additional comments: Sedated secondary to intubation, pt moving arms without difficulty but does not open his eyes Internal Med - H&P Results - Labs CBC & Chem 7: 09/25/18 15:02 09/25/18 15:02 Labs: Short CBC 09/25/18 Range/Units 15:02 WBC 12.6 H (4.3-11.1) K/mcL Hgb 12.4 L (12.9-16.9) g/dL Hct 40.5 (37.5-50.1) % Plt Count 246 (140-400) K/mcL Neutrophils # 10.4 H (1.6-8.9) K/mcL BMP 09/25/18 15:02 Sodium 139 Potassium 6.0 H Chloride 93 L Carbon Dioxide 37 H BUN 29 H Creatinine 1.36 H Glucose 146 H Calcium 9.8 Cardiac Enzymes 09/25/18 Range/Units 15:02 Troponin I < 0.03 (< 0.04) ng/mL - ABG Interpretation ABG results: 09/25/18 09/25/18 09/25/18 15:09 16:28 18:14 ABG pH 7.23 L 7.27 L 7.31 L ABG pCO2 89 H* 80 H* 69 H ABG pO2 198 H 64 L D 200 H D ABG HCO3 37 H 37 H 35 H ABG Total CO2 40 H 40 H 37 H ABG O2 Saturation 99 H 87 L 100 H ABG Base Excess 6 H 7 H 7 H - Impressions ITS Impressions Chest X-Ray 09/25/18 15:13 IMPRESSION: 1. No active pulmonary disease. 2. COPD with interstitial opacities likely representing chronic inflammation. D/ / Virgil Amador MD / Virgil Amador MD Interpreting Provider: Virgil Amador MD Cervical Spine CT 09/25/18 15:37 IMPRESSION: Head CT: No acute intracranial abnormality. Cervical spine CT: No acute abnormality. D/ / Mehdi Langley MD / Mehdi Langley MD Interpreting Provider: Mehdi Langley MD Head CT 09/25/18 15:37 IMPRESSION: Head CT: No acute intracranial abnormality. Cervical spine CT: No acute abnormality. D/ / Mehdi Langley MD / Mehdi Langley MD Interpreting Provider: Mehdi Langley MD Chest X-Ray 09/25/18 17:14 IMPRESSION: Endotracheal tube tip is in a relatively inferior position approximately 2 cm above the juanita. Consider withdrawing approximately 1-2 cm for more optimal placement. D/ / Mehdi Langley MD / Mehdi Langley MD Interpreting Provider: Mehdi Langley MD - Assessment and Plan (1) Acute respiratory failure with hypoxia and hypercapnia Current Visit: Yes Status: Acute Assessment and plan: Pt initially presented with GCS of 6 in the ED and was minimally responsive Trial of BiPAP initially went well and pt improved to GCS of 15 Pt then became somnolent again and was subsequently intubated Initial ABG showed pH of 7.23 with CO2 of 89 Repeat ABG show improvement to pH of 7.31 with CO2 of 69 Scheduled Albuterol q4H 125mg Solu-medrol given in ED CXR without acute abnormality Stat ABG Continue to monitor respiratory status (2) Hyperkalemia Current Visit: Yes Status: Acute Assessment and plan: Pt with potassium of 6.0 in the ED EKG shows sinus Tachycardia with appropriate intervals and no peaking of the T waves Given Albuterol, IV insulin with glucose and Kayexelate through the NG tube Repeat K+ pending Continue to treat as needed (3) COPD with acute exacerbation Current Visit: Yes Status: Acute Assessment and plan: Treatment as above for acute respiratory failure (4) Acute kidney injury Current Visit: Yes Status: Acute Assessment and plan: Cre 1.36 No known CKD diagnosis in past No baseline Continue IV fluids Monitor urine output Continue to trend renal function (5) Hypotension Current Visit: Yes Status: Acute Assessment and plan: Was hypotensive in ED despite 2L fluid bolus Right sided IJ placed without complications Levo 5mcg/hr for pressure support Continue to wean as patient tolerates Qualifiers: Hypotension type: unspecified hypotension type Qualified Code(s): I95.9 - Hypotension, unspecified (6) DVT prophylaxis Current Visit: Yes Status: Acute Assessment and plan: EPCDs - Time Spent With Patient Total time spent is greater than 50% in coordination of care (as documented) at patient's floor/unit and/or counseling patient: <Albin Cunningham Aman - Last Filed: 09/26/18 00:14> Date of Encounter: 09/25/18 Internal Medicine - H&P: HPI History of present illness: Mr. Higgins is a 77 year old male All Systems PM: A 10-system review of systems was performed and is negative for pertinent findings except as documented above in the HPI. - Constitutional Vitals: Temp Pulse Resp BP Pulse Ox 97.9 F 63 14 102/70 92 09/26/18 00:00 09/26/18 00:00 09/26/18 00:00 09/26/18 00:00 09/26/18 00:00 Internal Med - H&P Results - Labs CBC & Chem 7: 09/25/18 15:02 09/25/18 22:45 Labs: Short CBC 09/25/18 Range/Units 15:02 WBC 12.6 H (4.3-11.1) K/mcL Hgb 12.4 L (12.9-16.9) g/dL Hct 40.5 (37.5-50.1) % Plt Count 246 (140-400) K/mcL Neutrophils # 10.4 H (1.6-8.9) K/mcL BMP 09/25/18 09/25/18 15:02 22:45 Sodium 139 139 Potassium 6.0 H 4.1 D Chloride 93 L 103 Carbon Dioxide 37 H 30 H BUN 29 H 32 H Creatinine 1.36 H 1.18 Glucose 146 H 220 H Calcium 9.8 8.1 L Cardiac Enzymes 09/25/18 Range/Units 15:02 Troponin I < 0.03 (< 0.04) ng/mL - ABG Interpretation ABG results: 09/25/18 09/25/18 09/25/18 15:09 16:28 18:14 ABG pH 7.23 L 7.27 L 7.31 L ABG pCO2 89 H* 80 H* 69 H ABG pO2 198 H 64 L D 200 H D ABG HCO3 37 H 37 H 35 H ABG Total CO2 40 H 40 H 37 H ABG O2 Saturation 99 H 87 L 100 H ABG Base Excess 6 H 7 H 7 H 09/25/18 21:46 ABG pH 7.40 ABG pCO2 56 H ABG pO2 160 H D ABG HCO3 34 H ABG Total CO2 36 H ABG O2 Saturation 99 H ABG Base Excess 8 H - Impressions ITS Impressions Chest X-Ray 09/25/18 15:13 IMPRESSION: 1. No active pulmonary disease. 2. COPD with interstitial opacities likely representing chronic inflammation. D/ / Virgil Amador MD / Virgil Amador MD Interpreting Provider: Virgil Amador MD Cervical Spine CT 09/25/18 15:37 IMPRESSION: Head CT: No acute intracranial abnormality. Cervical spine CT: No acute abnormality. D/ / Mehdi Langley MD / Mehdi Langley MD Interpreting Provider: Mehdi Langley MD Head CT 09/25/18 15:37 IMPRESSION: Head CT: No acute intracranial abnormality. Cervical spine CT: No acute abnormality. D/ / Mehdi Langley MD / Mehdi Langley MD Interpreting Provider: Mehdi Langley MD Chest X-Ray 09/25/18 17:14 IMPRESSION: Endotracheal tube tip is in a relatively inferior position approximately 2 cm above the juanita. Consider withdrawing approximately 1-2 cm for more optimal placement. D/ / Mehdi Langley MD / Mehdi Langley MD Interpreting Provider: Mehdi Langley MD Chest X-Ray 09/25/18 20:11 IMPRESSION: 1. Right transjugular central venous catheter in the superior vena cava. 2. Endotracheal tube approximately 6 cm above the juanita. D/ / Danielito Chapa MD / Danielito Chapa MD Interpreting Provider: Danielito Chapa MD - Time Spent With Patient Total time spent is greater than 50% in coordination of care (as documented) at patient's floor/unit and/or counseling patient: - Attending Attestation I saw and evaluated the patient. I reviewed the residents note, performed my own physical examination and agree with findings and plan as documented in the residents note. Patient seen and examined on 09/25/18. Patient presented with acute hypoxic respiratory failure and was intubated due to worsening status. Currently doing well. Potassium has improved to 4.1. We will continue ICU cares, repeat labs in the AM to follow renal function and potassium. Repeat ABG demonstrated improved PCO2 from 89 to 56.
[2018-09-25 21:53] LABS: ABG Base Excess 8 mEq/L (-2 to 3); ABG HCO3 34 mEq/L (21-27); ABG Oxygen Saturation 99 % (95-98); ABG PCO2 56 mmHg (35-45); ABG PO2 160 mmHg (85-104); ABG TCO2 36 mEq/L (20-26); Blood Gas Modality ASSIST CONTROL; Blood Gas PEEP 5 cm H2O; Blood Gas VT 500 cc
[2018-09-25] MEDS: Artificial Tears SOLN 15 ML BOTTLE BOTH EYES SCH ×2 (21:53→23:24)
[2018-09-25] MEDS: Chlorhexidine Rinse 15 ML MOUTHWASH MM SCH (21:53)
[2018-09-25] MEDS ORDERED: 0.9 % Sodium Chloride 1,000 ML IVC SCH (22:00)
[2018-09-25 23:15] LABS: BUN/Creatinine Ratio 27 (6-26); Blood Urea Nitrogen 32 mg/dL (8-23); Calcium 8.1 mg/dL (8.6-10.3); Carbon Dioxide 30 mEq/L (23-29); Chloride 103 mEq/L (98-107); Glucose 220 mg/dL (70-105); Osmolality,Calculated 302 (280-300); Potassium 4.1 mEq/L (3.5-5.1); Sodium 139 mEq/L (136-145); eGFR For African Americans > 60 (> 60); eGFR For Non-African Americans 60 (> 60)
[2018-09-26] MEDS: *HR* Midazolam HCl 2 MG/2 ML VIAL IVP PRN ×4 (01:10→23:29)
[2018-09-26] MEDS: Dexmedetomidine HCl 400 MCG/100 ML MLS IVC SCH ×3 (03:00→23:28)
[2018-09-26] MEDS: Artificial Tears SOLN 15 ML BOTTLE BOTH EYES SCH ×6 (03:24→23:29)
[2018-09-26 05:01] LABS: ABG Base Excess 7 mEq/L (-2 to 3); ABG HCO3 34 mEq/L (21-27); ABG Oxygen Saturation 96 % (95-98); ABG PCO2 56 mmHg (35-45); ABG PH 7.39 pH Units (7.32-7.45); ABG PO2 81 mmHg (85-104); ABG TCO2 35 mEq/L (20-26); Blood Gas Modality ASSIST CONTROL; Blood Gas PEEP 5 cm H2O; Blood Gas VT 480 cc
[2018-09-26 05:05] LABS: Basophils % 0.1 %; Hematocrit 31.4 % (37.5-50.1); Immature Granulocytes % 0.7 % (0-4); Lymphocytes # 0.4 K/mcL (0.6-4.6); Lymphocytes % 4.4 %; Mean Corpuscular HGB Conc 31.5 g/dL (31.6-35.5); Mean Corpuscular Hemoglobin 32.8 pg (28.0-33.3); Mean Platelet Volume 10.6 fL (9.4-12.4); Monocytes # 0.9 K/mcL (0.0-1.3); Monocytes % 9.5 %; Neutrophils # 8.1 K/mcL (1.6-8.9); Platelet Count 187 K/mcL (140-400); Red Blood Count 3.02 M/mcL (4.19-5.50); Segmented Neutrophils % 85.3 %; White Blood Count 9.5 K/mcL (4.3-11.1)
[2018-09-26 05:06] LABS: Hemoglobin 9.9 g/dL (12.9-16.9)
[2018-09-26 05:26] LABS: BUN/Creatinine Ratio 30 (6-26); Blood Urea Nitrogen 36 mg/dL (8-23); Calcium 8.3 mg/dL (8.6-10.3); Carbon Dioxide 30 mEq/L (23-29); Chloride 103 mEq/L (98-107); Glucose 183 mg/dL (70-105); Magnesium 2.1 mg/dL (1.6-2.6); Osmolality,Calculated 299 (280-300); Phosphorous 1.9 mg/dL (2.7-4.5); Potassium 4.4 mEq/L (3.5-5.1); Sodium 138 mEq/L (136-145); eGFR For African Americans > 60 (> 60); eGFR For Non-African Americans 58 (> 60)
[2018-09-26 05:28] LABS: Estimated Average Glucose 114 mg/dl
--- NOTE | 2018-09-26 07:00 | Pulmonology Consult Note ---
<Gerson Henson - Last Filed: 09/26/18 18:06> Date of Encounter: 09/26/18 Time of Encounter: 08:00 Assessment and Plan (1) Acute respiratory failure with hypoxia and hypercapnia Current Visit: Yes Status: Acute Pt initially minimally responsive in ED Initial trial of BiPAP was successful, however pt became somnolent again and was subsequently intubated Initial ABG showed pH of 7.23 with CO2 of 89 Most recent ABG shows improvement to pH of 7.39 with CO2 of 56 Pt will require some baseline hypercapnia as he has COPD Pt was noted to have copious green sputum during ET tube suctioning - sampled sent for sputum culture Scheduled Duonebs Symbicort 40mg IV Solu-medrol q8hr Zosyn Await sputum culture results Continue intubation and sedation today - will attempt CPAP trial tomorrow (2) COPD with acute exacerbation Current Visit: Yes Status: Acute Treatment as above for acute respiratory failure (3) Acute kidney injury Current Visit: Yes Status: Acute Initial Cr of 1.36, most recent improved at 1.20 No known CKD diagnosis in past No baseline Continue IV fluids Monitor urine output Continue to trend renal function (4) Hypotension Current Visit: Yes Status: Acute Was hypotensive in ED despite 2L fluid bolus Right sided IJ CVC in place Suspect related to sedation meds Levophed as needed for pressure support Wean as tolerated Qualifiers: Hypotension type: unspecified hypotension type Qualified Code(s): I95.9 - Hypotension, unspecified (5) Urinary retention Current Visit: Yes Status: Acute Dr Muñoz placed manrique catheter Continue to monitor UOP (6) Hyperglycemia Current Visit: Yes Status: Acute No known history of DM SSI and q6hr accuchecks History of Present Illness Consult date: 09/26/18 Reason for consult: dyspnea, COPD, hypoxemia Chief complaint: SOB History of present illness: Mr. Higgins is a 77M with PMH of COPD and GERD. He initially presented to the ED on 09/25/18 after a fall at home and complaining of shortness of breath. Most of the HPI is obtained from family reports and review of records as pt is currently intubated. Pt was reported to have decreased activity at home and decreased appetite over the past few days. Pt reportedly fell out of bed which prompted the family to call EMS. Pt was solomnent on presentation in ED. An initial trial of BiPAP showed improvement in mental status. ABG from the ED showed acidosis with hypercapnia. BMP showed hyperkalemia, and elevated creatinine. Initial troponin was negative. EKG did showed peaked T waves. The pt was subsequently given IV insulin with dextrose, duonebs, and Kayexalate. Despite BiPAP the pt did become solomnent and minimally responsive once more. He was subsequently intubated in the ED. CXR demonstrated COPD. Head and C spine CTs were negative for acute abnormalities. The patient did require right IJ CVC placement and was started on Levophed for BP support. Pt seen and examined at bedside in the ICU. He remains intubated and sedated at this time. Past Med Surg Social Fam HX - Past Medical History Medical history: COPD, GERD Additional medical history: PER EMS AND FAMILY Psychiatric history: other - Past Surgical History Additional surgical history: UANBLE TO OBATIN AT THIS TIME - Social History Smoking Status: Current every day smoker - Family History Father Name: \ Hx Family Psychosocial Disorders: No (Unknown secondary to no family present) Hx Family Medical Disorders: No (Unable to obtain family history secondary to patient's intubated status) Medications and Allergies Albuterol Sulfate [Proventil Inhaler] 0 puff IH Q4HR PRN 09/25/18 [History] Alendronate Sodium [Fosamax] 70 mg PO QWEEK 09/25/18 [History] Benzonatate [Tessalon] 100 mg PO BID PRN 09/25/18 [History] Budesonide/Formoterol 160/4.5 [Symbicort 160/4.5] 2 puff IH BIDR 09/25/18 [History] Calcium Carbonate 650 mg PO DAILY 09/25/18 [History] Ipratropium Neb [Atrovent Neb] 0.5 mg IH Q4HR 09/25/18 [History] Levalbuterol Neb [Xopenex Neb] 1.25 mg IH Q4H 09/25/18 [History] Loratadine [Allergy Relief] 10 mg PO DAILY PRN 09/25/18 [History] Multivitamin [Daily Multiple Vitamin] 1 each PO DAILY 09/25/18 [History] Nicotine Patch [Nicoderm] 14 mg TD DAILY 09/25/18 [History] Omeprazole [PriLOSEC] 20 mg PO DAILY 09/25/18 [History] Sennosides/Docusate Sodium [Senna-Docusate Sodium Tablet] 2 each PO HS 09/25/18 [History] Allergy/AdvReac Type Severity Reaction Status Date / Time No Known Allergies Allergy Verified 09/25/18 16:42 ROS unobtainable: due to endotracheal tube, due to mental status All Systems: The remainder of the systems were reviewed and are negative Physical Examination Vital Signs: Vital Signs, Last 4 Hours Temp Pulse Resp BP Pulse Ox 09/26/18 06:05 14 118/84 97 09/26/18 06:00 63 14 118/84 90 09/26/18 05:00 62 14 115/81 91 09/26/18 04:14 14 133/90 93 09/26/18 04:00 97.4 F L 61 14 133/90 92 09/26/18 03:00 60 14 83/67 90 General appearance: asleep Eyes: nonicteric ENT: oropharynx moist Neck: supple, no JVD Effort: normal Inspection: normal Auscultation: bilateral: wheezes Cardiovascular: regular rate and rhythm Gastrointestinal: soft, non-tender, non-distended Integumentary: normal Extremities: no cyanosis, no edema, pink and warm unable to assess due to mental status Ventilator Settings Ventilator Settings: Ventilator Settings, Last 8 Hours Ventilator Tidal Volume 450 Setting Ventilator Tidal Volume 450 Setting Ventilator Tidal Volume 450 Setting Ventilator Tidal Volume 480 Setting Ventilator Tidal Volume 480 Setting Ventilator Tidal Volume 450 Setting Ventilator Tidal Volume 450 Setting Ventilator Tidal Volume 450 Setting Ventilator Tidal Volume 480 Setting Ventilator Tidal Volume 450 Setting Ventilator Tidal Volume 450 Setting Ventilator Tidal Volume 480 Setting Ventilator Tidal Volume 450 Setting Ventilator Respiratory Rate 14 Setting Ventilator Respiratory Rate 14 Setting Ventilator Respiratory Rate 14 Setting Ventilator Respiratory Rate 14 Setting Ventilator Respiratory Rate 14 Setting Ventilator Respiratory Rate 14 Setting Ventilator Respiratory Rate 14 Setting Ventilator Respiratory Rate 14 Setting Ventilator Respiratory Rate 14 Setting Ventilator Respiratory Rate 14 Setting Ventilator Respiratory Rate 14 Setting Ventilator Respiratory Rate 14 Setting Ventilator Respiratory Rate 14 Setting Actual Respiratory Rate 14 Actual Respiratory Rate 14 Actual Respiratory Rate 14 Actual Respiratory Rate 14 Actual Respiratory Rate 14 Actual Respiratory Rate 14 Actual Respiratory Rate 14 Actual Respiratory Rate 14 Actual Respiratory Rate 14 Actual Respiratory Rate 14 Actual Respiratory Rate 14 Actual Respiratory Rate 14 Positive End Expiratory 5 Pressure Positive End Expiratory 5 Pressure Positive End Expiratory 5 Pressure Positive End Expiratory 5 Pressure Positive End Expiratory 5 Pressure Positive End Expiratory 5 Pressure Positive End Expiratory 5 Pressure Positive End Expiratory 5 Pressure Positive End Expiratory 5 Pressure Positive End Expiratory 5 Pressure Positive End Expiratory 5 Pressure Positive End Expiratory 5 Pressure Positive End Expiratory 5 Pressure Peak Inspiratory Airway 36 Pressure Peak Inspiratory Airway 26 Pressure Peak Inspiratory Airway 26 Pressure Peak Inspiratory Airway 31 Pressure Peak Inspiratory Airway 25 Pressure Peak Inspiratory Airway 34 Pressure Peak Inspiratory Airway 27 Pressure Peak Inspiratory Airway 28 Pressure Peak Inspiratory Airway 25 Pressure Peak Inspiratory Airway 28 Pressure Peak Inspiratory Airway 33 Pressure Peak Inspiratory Airway 30 Pressure Results - Laboratory Findings CBC and BMP: 09/26/18 04:55 09/26/18 04:55 ABG ABG pH 7.39 pH Units (7.32-7.45) 09/26/18 04:58 ABG pCO2 56 mmHg (35-45) H 09/26/18 04:58 ABG pO2 81 mmHg (85-104) L 09/26/18 04:58 ABG O2 Saturation 96 % (95-98) 09/26/18 04:58 Abnormal lab findings: Abnormal lab results WBC 12.6 K/mcL (4.3-11.1) H 09/25/18 15:02 RBC 3.02 M/mcL (4.19-5.50) L 09/26/18 04:55 Hgb 9.9 g/dL (12.9-16.9) L D 09/26/18 04:55 Hct 31.4 % (37.5-50.1) L 09/26/18 04:55 MCV 104.0 fL (83.0-100.0) H 09/26/18 04:55 MCHC 31.5 g/dL (31.6-35.5) L 09/26/18 04:55 10.4 K/mcL (1.6-8.9) H 09/25/18 15:02 0.4 K/mcL (0.6-4.6) L 09/26/18 04:55 1.7 K/mcL (0.0-1.3) H 09/25/18 15:02 ABG pH 7.31 pH Units (7.32-7.45) L 09/25/18 18:14 ABG pCO2 56 mmHg (35-45) H 09/26/18 04:58 ABG pO2 81 mmHg (85-104) L 09/26/18 04:58 ABG HCO3 34 mEq/L (21-27) H 09/26/18 04:58 ABG Total CO2 35 mEq/L (20-26) H 09/26/18 04:58 ABG O2 Saturation 99 % (95-98) H 09/25/18 21:46 ABG Base Excess 7 mEq/L (-2 to 3) H 09/26/18 04:58 Potassium 6.0 mEq/L (3.5-5.1) H 09/25/18 15:02 Chloride 93 mEq/L (98-107) L 09/25/18 15:02 Carbon Dioxide 30 mEq/L (23-29) H 09/26/18 04:55 BUN 36 mg/dL (8-23) H 09/26/18 04:55 1.36 mg/dL (0.70-1.30) H 09/25/18 15:02 Est GFR (Non-Af Amer) 58 (> 60) L 09/26/18 04:55 30 (6-26) H 09/26/18 04:55 Glucose 183 mg/dL (70-105) H 09/26/18 04:55 POC Glucose 246 mg/dL (70-99) H 09/25/18 21:30 302 (280-300) H 09/25/18 22:45 Calcium 8.3 mg/dL (8.6-10.3) L 09/26/18 04:55 Phosphorus 1.9 mg/dL (2.7-4.5) L 09/26/18 04:55 B-Natriuretic Peptide 126 pg/mL (Less than 100) H 09/25/18 15:02 - Microbiology Findings Microbiology Findings: Microbiology, Last 48 Hours 09/25/18 18:10 Blood Culture - Preliminary Peripheral Venipuncture Culture is incubating and being continuously monitored for growth. Final report to follow. 09/25/18 18:05 Blood Culture - Preliminary Peripheral Venipuncture Culture is incubating and being continuously monitored for growth. Final report to follow. - Diagnostic Findings Chest x-ray: report reviewed, image reviewed - Clinical Findings Intake & Output: Intake & Output 09/25/18 09/25/18 09/26/18 15:59 23:59 07:59 Intake Total 2926 / 2926 99 / 99 Output Total 100 / 100 130 / 130 Balance 2826 / 2826 -31 / -31 Weight 54.2 kg 53.6 kg 53.6 kg Consult Discharge Plan - Plan [facility]errals: [facility] [Primary Care Provider[facility] - <Lizz Chiu - Last Filed: 09/26/18 19:28> Date of Encounter: 09/26/18 All Systems: The remainder of the systems were reviewed and are negative Physical Examination Vital Signs: Vital Signs, Last 4 Hours Temp Pulse Resp BP Pulse Ox 09/26/18 18:00 58 16 108/79 92 09/26/18 17:45 16 101/71 93 09/26/18 17:00 60 16 101/71 87 09/26/18 16:00 97.1 F L 67 16 95/70 89 Ventilator Settings Ventilator Settings: Ventilator Settings, Last 8 Hours Ventilator Tidal Volume 420 Setting Ventilator Tidal Volume 420 Setting Ventilator Tidal Volume 420 Setting Ventilator Tidal Volume 420 Setting Ventilator Tidal Volume 420 Setting Ventilator Tidal Volume 420 Setting Ventilator Tidal Volume 420 Setting Ventilator Tidal Volume 420 Setting Ventilator Tidal Volume 420 Setting Ventilator Tidal Volume 420 Setting Ventilator Respiratory Rate 16 Setting Ventilator Respiratory Rate 16 Setting Ventilator Respiratory Rate 16 Setting Ventilator Respiratory Rate 16 Setting Ventilator Respiratory Rate 16 Setting Ventilator Respiratory Rate 16 Setting Ventilator Respiratory Rate 16 Setting Ventilator Respiratory Rate 16 Setting Ventilator Respiratory Rate 16 Setting Ventilator Respiratory Rate 16 Setting Actual Respiratory Rate 16 Actual Respiratory Rate 21 Actual Respiratory Rate 16 Positive End Expiratory 5 Pressure Positive End Expiratory 5 Pressure Positive End Expiratory 5 Pressure Positive End Expiratory 5 Pressure Positive End Expiratory 5 Pressure Positive End Expiratory 5 Pressure Positive End Expiratory 5 Pressure Positive End Expiratory 5 Pressure Positive End Expiratory 5 Pressure Positive End Expiratory 5 Pressure Peak Inspiratory Airway 30 Pressure Peak Inspiratory Airway 29 Pressure Peak Inspiratory Airway 27 Pressure Peak Inspiratory Airway 26 Pressure Peak Inspiratory Airway 35 Pressure Peak Inspiratory Airway 52 Pressure Peak Inspiratory Airway 39 Pressure Peak Inspiratory Airway 31 Pressure Peak Inspiratory Airway 38 Pressure Peak Inspiratory Airway 33 Pressure Results - Laboratory Findings CBC and BMP: 09/26/18 04:55 09/26/18 04:55 ABG ABG pH 7.39 pH Units (7.32-7.45) 09/26/18 04:58 ABG pCO2 56 mmHg (35-45) H 09/26/18 04:58 ABG pO2 81 mmHg (85-104) L 09/26/18 04:58 ABG O2 Saturation 96 % (95-98) 09/26/18 04:58 Abnormal lab findings: Abnormal lab results WBC 12.6 K/mcL (4.3-11.1) H 09/25/18 15:02 RBC 3.02 M/mcL (4.19-5.50) L 09/26/18 04:55 Hgb 9.9 g/dL (12.9-16.9) L D 09/26/18 04:55 Hct 31.4 % (37.5-50.1) L 09/26/18 04:55 MCV 104.0 fL (83.0-100.0) H 09/26/18 04:55 MCHC 31.5 g/dL (31.6-35.5) L 09/26/18 04:55 Neutrophils # 10.4 K/mcL (1.6-8.9) H 09/25/18 15:02 Lymphocytes # 0.4 K/mcL (0.6-4.6) L 09/26/18 04:55 Monocytes # 1.7 K/mcL (0.0-1.3) H 09/25/18 15:02 ABG pH 7.31 pH Units (7.32-7.45) L 09/25/18 18:14 ABG pCO2 56 mmHg (35-45) H 09/26/18 04:58 ABG pO2 81 mmHg (85-104) L 09/26/18 04:58 ABG HCO3 34 mEq/L (21-27) H 09/26/18 04:58 ABG Total CO2 35 mEq/L (20-26) H 09/26/18 04:58 ABG O2 Saturation 99 % (95-98) H 09/25/18 21:46 ABG Base Excess 7 mEq/L (-2 to 3) H 09/26/18 04:58 Potassium 6.0 mEq/L (3.5-5.1) H 09/25/18 15:02 Chloride 93 mEq/L (98-107) L 09/25/18 15:02 Carbon Dioxide 30 mEq/L (23-29) H 09/26/18 04:55 BUN 36 mg/dL (8-23) H 09/26/18 04:55 Creatinine 1.36 mg/dL (0.70-1.30) H 09/25/18 15:02 Est GFR (Non-Af Amer) 58 (> 60) L 09/26/18 04:55 BUN/Creatinine Ratio 30 (6-26) H 09/26/18 04:55 Glucose 183 mg/dL (70-105) H 09/26/18 04:55 POC Glucose 246 mg/dL (70-99) H 09/25/18 21:30 Calculated Osmolality 302 (280-300) H 09/25/18 22:45 Calcium 8.3 mg/dL (8.6-10.3) L 09/26/18 04:55 Phosphorus 1.9 mg/dL (2.7-4.5) L 09/26/18 04:55 B-Natriuretic Peptide 126 pg/mL (Less than 100) H 09/25/18 15:02 Procalcitonin 0.34 ng/mL (0.00-0.15) H 09/26/18 08:25 - Microbiology Findings Microbiology Findings: Microbiology, Last 48 Hours 09/26/18 10:28 Sputum Culture - Preliminary Sputum 09/25/18 18:10 Blood Culture - Preliminary Peripheral Venipuncture Culture is incubating and being continuously monitored for growth. Final report to follow. 09/25/18 18:05 Blood Culture - Preliminary Peripheral Venipuncture Culture is incubating and being continuously monitored for growth. Final report to follow. - Clinical Findings Intake & Output: Intake & Output 09/26/18 09/26/18 09/26/18 07:59 15:59 23:59 Intake Total 99 / 1129 1030 / 1129 Output Total 130 / 375 120 / 375 125 / 375 Balance -31 / 754 910 / 754 -125 / 754 Weight 53.6 kg - Attending Attestation I saw and evaluated this patient and my medical decision-making was reviewed with the Resident Physician. I agree with the documented findings, disposition and treatment plan as described except to the extent set forth below. We independently had [id number] contact with the patient I spent 45 MINUTES of Critical Care time with this patient. It involved decision making of high complexity to assess, manipulate, and support vital organ system failure and/or to prevent further life threatening deterioration of the patient's condition. The time involved in the performance of separately reportable procedures was not counted toward critical care time. Patient seen and examined at bedside Labs, radiology, chart personally reviewed. Management was reviewed during multidisciplinary critical care rounds. FLY FISHING GUIDE: Patient is agitated and confused and following commands secondary to toxic/metabolic encephalopathy due to hypercarbia Pulm: Patient COPD exacerbation with the acute on chronic hypercarbic hypoxic respiratory failure patient has a congestive heart failure in the background continue bronchodilator steroids patient is bringing thick green sputum patient is on broad-spectrum antibiotics. Adjusted the tidal volume 4 minute ventilation to aim for low tidal volume strategy adequate gas exchange. Cards: Patient has congestive heart failure patient looks euvolemic on exam with minimal bilateral pleural effusion with fusion and chest x-ray if needed was gently diuresis as tolerated patient liberated off vasopressors most likely sedation-induced myocardial depression FEN-GI: Keep nothing by mouth for today Renal: Labs and output reviewed ID: To cover with broad-spectrum antibiotics for possible pneumonia Heme/Onc: Reviewed Endo: Glucose Monitored Integ/MSK: Skin Care per routine ICU Nursing Protocol to prevent ulcers. Lines: All lines examined without evidence of infection : Dispo: critically ill CODE: Full code
[2018-09-26] MEDS: Budesonide/Formoterol 160/4.5 1 PUFF INH IH SCH ×2 (07:27→21:15)
[2018-09-26] MEDS ORDERED: *HR* Water for inj. (sterile) Vial IV ONE (08:06)
[2018-09-26] MEDS ORDERED: *HR* Midazolam HCl 5 MG/5 ML VIAL IVP ONE (08:06)
[2018-09-26] MEDS ORDERED: *HR* Rocuronium Bromide 50 MG/5 ML VIAL IVC ONE (08:06)
[2018-09-26] MEDS ORDERED: *HR* Etomidate 20 MG/10 ML AMPUL IVP ONE (08:06)
--- NOTE | 2018-09-26 08:13 | Urology - Consult Note ---
Date of Encounter: 09/26/18 Time of Encounter: 08:09 - Assessment and Plan (1) Urinary retention Current Visit: Yes Status: Acute Assessment and plan: Patient was prepped and draped in normal sterile fashion. I then was able to place an 18-Georgian coude catheter into the patient's bladder. There was some moderate amount of resistance around the prostate. I then manually irrigated the patient's bladder with clear urine returned. Patient will continue with catheter at this time. Okay to remove per primary team when patient extubated as long as patient did not have catheter prior to arrival to the hospital. If patient had catheter prior to arrival to the hospital recommend to keep in place and call with any questions. Urology CN:HPI Consult date: 09/26/18 Reason for consult Urology: Difficult Dennis Requesting physician: Peyton Spencer History of present illness: Toan is a 77-year-old male who was admitted to the ICU secondary to respiratory failure. Patient unable to answer questions secondary to intubated status. Patient had multiple tenths of catheter placement upon arrival to the hospital which were unsuccessful. Unsure from history whether the patient has had a catheter prior to hospitalization or not. No records were available for review at time of consultation. Past Med Surg Social Fam HX - Past Medical History Medical history: COPD, GERD Additional medical history: PER EMS AND FAMILY Psychiatric history: other - Past Surgical History Additional surgical history: UANBLE TO OBATIN AT THIS TIME - Social History Smoking Status: Current every day smoker - Family History Father Name: \ Hx Family Psychosocial Disorders: No (Unknown secondary to no family present) Hx Family Medical Disorders: No (Unable to obtain family history secondary to patient's intubated status) Medications and Allergies Albuterol Sulfate [Proventil Inhaler] 0 puff IH Q4HR PRN 09/25/18 [History] Alendronate Sodium [Fosamax] 70 mg PO QWEEK 09/25/18 [History] Benzonatate [Tessalon] 100 mg PO BID PRN 09/25/18 [History] Budesonide/Formoterol 160/4.5 [Symbicort 160/4.5] 2 puff IH BIDR 09/25/18 [History] Calcium Carbonate 650 mg PO DAILY 09/25/18 [History] Ipratropium Neb [Atrovent Neb] 0.5 mg IH Q4HR 09/25/18 [History] Levalbuterol Neb [Xopenex Neb] 1.25 mg IH Q4H 09/25/18 [History] Loratadine [Allergy Relief] 10 mg PO DAILY PRN 09/25/18 [History] Multivitamin [Daily Multiple Vitamin] 1 each PO DAILY 09/25/18 [History] Nicotine Patch [Nicoderm] 14 mg TD DAILY 09/25/18 [History] Omeprazole [PriLOSEC] 20 mg PO DAILY 09/25/18 [History] Sennosides/Docusate Sodium [Senna-Docusate Sodium Tablet] 2 each PO HS 09/25/18 [History] Allergy/AdvReac Type Severity Reaction Status Date / Time No Known Allergies Allergy Verified 09/25/18 16:42 Review of Systems ROS unobtainable: due to endotracheal tube Exam Initial Vital Signs Temp Pulse Resp BP Pulse Ox 97.0 F L 108 28 102/60 99 09/25/18 15:13 09/25/18 15:13 09/25/18 15:13 09/25/18 15:13 09/25/18 15:13 - General physical appearance Present: well developed - Neck Present: no masses, no lymphadenopathy - Respiratory Present: normal respiratory effort (Intubated) - Cardiovascular Cardiovascular exam IM: RRR - Abdomen Abdomen: Present: soft. Absent: tender - Genitourinary other (Normal phallus with small amount of blood at meatus normal testicles) Urology Results - Labs 09/26/18 04:55 09/26/18 04:55 Abnormal lab results WBC 12.6 K/mcL (4.3-11.1) H 09/25/18 15:02 RBC 3.02 M/mcL (4.19-5.50) L 09/26/18 04:55 Hgb 9.9 g/dL (12.9-16.9) L D 09/26/18 04:55 Hct 31.4 % (37.5-50.1) L 09/26/18 04:55 MCV 104.0 fL (83.0-100.0) H 09/26/18 04:55 MCHC 31.5 g/dL (31.6-35.5) L 09/26/18 04:55 10.4 K/mcL (1.6-8.9) H 09/25/18 15:02 0.4 K/mcL (0.6-4.6) L 09/26/18 04:55 1.7 K/mcL (0.0-1.3) H 09/25/18 15:02 ABG pH 7.31 pH Units (7.32-7.45) L 09/25/18 18:14 ABG pCO2 56 mmHg (35-45) H 09/26/18 04:58 ABG pO2 81 mmHg (85-104) L 09/26/18 04:58 ABG HCO3 34 mEq/L (21-27) H 09/26/18 04:58 ABG Total CO2 35 mEq/L (20-26) H 09/26/18 04:58 ABG O2 Saturation 99 % (95-98) H 09/25/18 21:46 ABG Base Excess 7 mEq/L (-2 to 3) H 09/26/18 04:58 Potassium 6.0 mEq/L (3.5-5.1) H 09/25/18 15:02 Chloride 93 mEq/L (98-107) L 09/25/18 15:02 Carbon Dioxide 30 mEq/L (23-29) H 09/26/18 04:55 BUN 36 mg/dL (8-23) H 09/26/18 04:55 1.36 mg/dL (0.70-1.30) H 09/25/18 15:02 Est GFR (Non-Af Amer) 58 (> 60) L 09/26/18 04:55 30 (6-26) H 09/26/18 04:55 Glucose 183 mg/dL (70-105) H 09/26/18 04:55 POC Glucose 246 mg/dL (70-99) H 09/25/18 21:30 302 (280-300) H 09/25/18 22:45 Calcium 8.3 mg/dL (8.6-10.3) L 09/26/18 04:55 Phosphorus 1.9 mg/dL (2.7-4.5) L 09/26/18 04:55 B-Natriuretic Peptide 126 pg/mL (Less than 100) H 09/25/18 15:02 Diabetes panel 09/25/18 09/25/18 09/26/18 Range/Units 15:02 22:45 04:55 Sodium 139 139 138 (136-145) mEq/L Potassium 6.0 H 4.1 D 4.4 (3.5-5.1) mEq/L Chloride 93 L 103 103 (98-107) mEq/L Carbon Dioxide 37 H 30 H 30 H (23-29) mEq/L BUN 29 H 32 H 36 H (8-23) mg/dL Creatinine 1.36 H 1.18 1.20 (0.70-1.30) mg/dL Glucose 146 H 220 H 183 H (70-105) mg/dL Hemoglobin A1c ( - 5.6) % Calcium 9.8 8.1 L 8.3 L (8.6-10.3) mg/dL 09/26/18 Range/Units 04:55 Sodium (136-145) mEq/L Potassium (3.5-5.1) mEq/L Chloride (98-107) mEq/L Carbon Dioxide (23-29) mEq/L BUN (8-23) mg/dL Creatinine (0.70-1.30) mg/dL Glucose (70-105) mg/dL Hemoglobin A1c 5.6 ( - 5.6) % Calcium (8.6-10.3) mg/dL Calcium panel 09/25/18 09/25/18 09/26/18 Range/Units 15:02 22:45 04:55 Calcium 9.8 8.1 L 8.3 L (8.6-10.3) mg/dL Phosphorus 1.9 L (2.7-4.5) mg/dL Pituitary panel 09/25/18 09/25/18 09/26/18 Range/Units 15:02 22:45 04:55 Sodium 139 139 138 (136-145) mEq/L Potassium 6.0 H 4.1 D 4.4 (3.5-5.1) mEq/L Chloride 93 L 103 103 (98-107) mEq/L Carbon Dioxide 37 H 30 H 30 H (23-29) mEq/L BUN 29 H 32 H 36 H (8-23) mg/dL Creatinine 1.36 H 1.18 1.20 (0.70-1.30) mg/dL Glucose 146 H 220 H 183 H (70-105) mg/dL Calcium 9.8 8.1 L 8.3 L (8.6-10.3) mg/dL Adrenal panel 09/25/18 09/25/18 09/26/18 Range/Units 15:02 22:45 04:55 Sodium 139 139 138 (136-145) mEq/L Potassium 6.0 H 4.1 D 4.4 (3.5-5.1) mEq/L Chloride 93 L 103 103 (98-107) mEq/L Carbon Dioxide 37 H 30 H 30 H (23-29) mEq/L BUN 29 H 32 H 36 H (8-23) mg/dL Creatinine 1.36 H 1.18 1.20 (0.70-1.30) mg/dL Glucose 146 H 220 H 183 H (70-105) mg/dL Calcium 9.8 8.1 L 8.3 L (8.6-10.3) mg/dL All other labs normal. - Imaging Additional studies: No upper tract imaging performed at this time Consult Discharge Plan - Plan [facility]errals: [facility] [Primary Care Provider] -
[2018-09-26] MEDS ORDERED: D5% in Water 1,000 ML IVC PRN (08:24)
[2018-09-26] MEDS ORDERED: *HR* Dextrose 50 % in Water (Syg) 50 ML SYRINGE IVP PRN (08:24)
[2018-09-26] MEDS: Pantoprazole 40 MG VIAL IVP SCH (08:34)
[2018-09-26] MEDS: Chlorhexidine Rinse 15 ML MOUTHWASH MM SCH ×2 (08:34→19:55)
[2018-09-26] MEDS: Piperacillin/Tazobactam 3.375 GM in 0.9 % Sodium Chloride Mini Bag 100 ML IVPB SCH ×2 (11:14→18:03)
[2018-09-26] MEDS: Insulin LISPRO 300 UNITS/3 ML VIAL SQ SCH ×3 (11:28→23:29)
[2018-09-26] MEDS: MethylPREDNISolone 40 MG/ML VIAL IVP SCH ×2 (15:52→23:35)
[2018-09-26] MEDS: FentaNYL (PF) 1,000 MCG in 0.9 % Sodium Chloride 80 ML IVC SCH ×2 (16:06→21:52)
--- NOTE | 2018-09-26 16:43 | Electrocardiograph Report ---
[address] [place], [place] [address] Test Date: 2018-09-25 Pat Name: Toan Higgins Department: [id number] Room: 04 Gender: M Trimmer Climber: : 1940 Requested By: Tommy Aceves Order Number: [id number] Reading MD: Ariella Sanchez Measurements Intervals Commodore Rate: 108 P: 72 IA: 153 QRS: 57 QRSD: 142 T: 233 QT: 346 QTc: 464 Interpretive Statements Sinus tachycardia IVCD, consider atypical LBBB Electronically Signed On 09-26-2018 16:41:55 EDT by Ariella Sanchez
[2018-09-26] MEDS: Norepinephrine 4 MG in D5% in Water 250 ML IVC SCH (19:56)
[2018-09-26] MEDS: Ipratropium/Albuterol Neb 3 ML IH SCH (21:14)
[2018-09-27] MEDS: Piperacillin/Tazobactam 3.375 GM in 0.9 % Sodium Chloride Mini Bag 100 ML IVPB SCH ×3 (03:43→18:02)
[2018-09-27] MEDS: *HR* Midazolam HCl 2 MG/2 ML VIAL IVP PRN ×2 (03:44→13:45)
[2018-09-27] MEDS: FentaNYL (PF) 1,000 MCG in 0.9 % Sodium Chloride 80 ML IVC SCH ×4 (03:44→21:46)
[2018-09-27] MEDS: Artificial Tears SOLN 15 ML BOTTLE BOTH EYES SCH ×5 (03:44→19:42)
[2018-09-27] MEDS: Ipratropium/Albuterol Neb 3 ML IH SCH ×4 (04:04→22:05)
[2018-09-27 04:13] LABS: Basophils % 0.1 %; Hematocrit 32.6 % (37.5-50.1); Hemoglobin 10.3 g/dL (12.9-16.9); Immature Granulocytes % 0.9 % (0-4); Lymphocytes # 0.4 K/mcL (0.6-4.6); Lymphocytes % 4.3 %; Mean Corpuscular HGB Conc 31.6 g/dL (31.6-35.5); Mean Corpuscular Hemoglobin 31.9 pg (28.0-33.3); Mean Corpuscular Volume 100.9 fL (83.0-100.0); Monocytes # 0.5 K/mcL (0.0-1.3); Monocytes % 5.7 %; Neutrophils # 7.9 K/mcL (1.6-8.9); Platelet Count 185 K/mcL (140-400); Red Blood Count 3.23 M/mcL (4.19-5.50); Red Cell Distribution Width 13.5 % (11.5-14.5); White Blood Count 8.9 K/mcL (4.3-11.1)
[2018-09-27 04:15] LABS: VBG Ionized Calcium 1.12 mmol/L (1.15-1.35)
[2018-09-27 04:23] LABS: BUN/Creatinine Ratio 42 (6-26); Blood Urea Nitrogen 53 mg/dL (8-23); Calcium 8.5 mg/dL (8.6-10.3); Carbon Dioxide 30 mEq/L (23-29); Chloride 103 mEq/L (98-107); Glucose 134 mg/dL (70-105); Magnesium 2.4 mg/dL (1.6-2.6); Osmolality,Calculated 306 (280-300); Phosphorous 3.8 mg/dL (2.7-4.5); Potassium 4.8 mEq/L (3.5-5.1); Sodium 140 mEq/L (136-145); eGFR For African Americans > 60 (> 60); eGFR For Non-African Americans 55 (> 60)
[2018-09-27 04:52] LABS: ABG Base Excess 3 mEq/L (-2 to 3); ABG HCO3 30 mEq/L (21-27); ABG Oxygen Saturation 95 % (95-98); ABG PCO2 52 mmHg (35-45); ABG PH 7.36 pH Units (7.32-7.45); ABG PO2 81 mmHg (85-104); ABG TCO2 31 mEq/L (20-26); Blood Gas Modality ASSIST CONTROL; Blood Gas PEEP 5 cm H2O; Blood Gas VT 420 cc
[2018-09-27] MEDS: Insulin LISPRO 300 UNITS/3 ML VIAL SQ SCH ×3 (05:20→18:00)
[2018-09-27] MEDS ORDERED: *HR* LORazepam 2 MG/ML VIAL ONE (07:32)
[2018-09-27] MEDS ORDERED: *HR* LORazepam 2 MG/ML VIAL IVP ONE (08:44)
[2018-09-27] MEDS: Chlorhexidine Rinse 15 ML MOUTHWASH MM SCH ×2 (08:45→19:42)
[2018-09-27] MEDS: Pantoprazole 40 MG VIAL IVP SCH (08:45)
[2018-09-27] MEDS: MethylPREDNISolone 40 MG/ML VIAL IVP SCH ×2 (08:45→15:52)
[2018-09-27] MEDS: Dexmedetomidine HCl 400 MCG/100 ML MLS IVC SCH (09:50)
[2018-09-27] MEDS: Budesonide/Formoterol 160/4.5 1 PUFF INH IH SCH ×2 (09:52→22:05)
--- NOTE | 2018-09-27 10:52 | Electrocardiograph Report ---
[address] [place] [address] Test Date: 2018-09-26 Pat Name: Toan Higgins Department: [id number] Room: 04 Gender: M Sampler Pickup: : 1940 Requested By: Gerson Henson Order Number: [id number] Reading MD: Celio Lazaro Measurements Intervals Eva Rate: 68 P: 83 MO: 152 QRS: 53 QRSD: 149 T: -9 QT: 461 QTc: 478 Interpretive Statements SINUS RHYTHM LEFT BUNDLE BRANCH BLOCK Electronically Signed On 09-27-2018 10:50:38 EDT by Celio Lazaro
--- NOTE | 2018-09-27 11:47 | Pulmonology Progress Note ---
<Sherine Jhaveri M - Last Filed: 09/27/18 16:06> Date of Encounter: 09/27/18 Time of Encounter: 11:47 Assessment and Plan (1) Acute respiratory failure with hypoxia and hypercapnia Current Visit: Yes Status: Acute * Patient was initially responsive to BiPAP in the emergency department but subsequently declined in respiratory function requiring intubation, family confirmed that he is full code * Today the patient continues to require mechanical ventilation * During CPAP trial this morning he was able to have spontaneous breathing but did not follow commands and did have an episode of eye staring off with non- purposeful movements of bilateral upper and lower extremities, concern for seizure and therefore will obtain EEG * ABG this morning shows slight hypercapnia, appropriate for his COPD * Blood and sputum cultures pending sensitivities * Continue with scheduled 2 nebs, Symbicort, steroids * Continuing Zosyn given the gram-negative rods in sputum * Repeat CPAP trial tomorrow * Will add Haldol IV 5 mg every 8 for possible hospital associated delirium * Tube feeding started today per nutrition (2) COPD with acute exacerbation Current Visit: Yes Status: Acute * Continuing with bronchodilators and steroids as above (3) Acute kidney injury Current Visit: Yes Status: Acute * Improved, continue neurologic (4) Hypotension Current Visit: Yes Status: Acute * No longer requiring vasopressors Qualifiers: Hypotension type: unspecified hypotension type Qualified Code(s): I95.9 - Hypotension, unspecified (5) Urinary retention Current Visit: Yes Status: Acute * Dr. Muñoz placed daily catheter for urinary retention on 09/26/18 with adequate urinary output now * He recommends removing catheter following extubation given the patient did not present with a catheter in place (6) Hyperglycemia Current Visit: Yes Status: Acute * Potentially related to steroids * Hemoglobin A1c 5.6 (7) DVT prophylaxis Current Visit: Yes Status: Acute * Subcutaneous heparin added Subjective Interval history: Today the patient remains indented and sedated. I did observe the patient during his CPAP trial and he did not follow commands or respond to verbal cues. He did have an episode of his eyes being fixed and turned towards the right with intermittent nonpurposeful movement of bilateral upper and lower extremities. This was abated with 2 mg IV Ativan. Objective PUL Vital signs: Last Vital Signs Temp 96.9 F L 09/27/18 07:20 Pulse 77 07/12/19 10:00 Resp 16 09/27/18 11:01 BP 106/70 09/27/18 11:01 Pulse Ox 89 09/27/18 11:01 General appearance: no acute distress, comatose Eyes: nonicteric ENT: oropharynx moist Effort: normal Auscultation: bilateral: clear Cardiovascular: regular rate and rhythm Gastrointestinal: normoactive bowel sounds, non-tender, non-distended Integumentary: normal Extremities: no cyanosis Musculoskeletal: no deformities unable to assess due to mental status Ventilator Settings Ventilator Settings: Ventilator Settings, Last 8 Hours Ventilator Tidal Volume 400 Setting Ventilator Tidal Volume 400 Setting Ventilator Tidal Volume 400 Setting Ventilator Tidal Volume 400 Setting Ventilator Tidal Volume 420 Setting Ventilator Tidal Volume 420 Setting Ventilator Tidal Volume 420 Setting Ventilator Tidal Volume 420 Setting Ventilator Tidal Volume 420 Setting Ventilator Tidal Volume 420 Setting Ventilator Tidal Volume 420 Setting Ventilator Respiratory Rate 16 Setting Ventilator Respiratory Rate 16 Setting Ventilator Respiratory Rate 16 Setting Ventilator Respiratory Rate 16 Setting Ventilator Respiratory Rate 16 Setting Ventilator Respiratory Rate 16 Setting Ventilator Respiratory Rate 16 Setting Ventilator Respiratory Rate 16 Setting Ventilator Respiratory Rate 16 Setting Ventilator Respiratory Rate 16 Setting Ventilator Respiratory Rate 16 Setting Actual Respiratory Rate 16 Actual Respiratory Rate 16 Actual Respiratory Rate 12 Actual Respiratory Rate 23 Actual Respiratory Rate 16 Actual Respiratory Rate 20 Actual Respiratory Rate 16 Actual Respiratory Rate 16 Positive End Expiratory 5 Pressure Positive End Expiratory 5 Pressure Positive End Expiratory 5 Pressure Positive End Expiratory 5 Pressure Positive End Expiratory 5 Pressure Positive End Expiratory 5 Pressure Positive End Expiratory 5 Pressure Positive End Expiratory 5 Pressure Positive End Expiratory 5 Pressure Positive End Expiratory 5 Pressure Positive End Expiratory 5 Pressure Positive End Expiratory 5 Pressure Positive End Expiratory 5 Pressure Peak Inspiratory Airway 26 Pressure Peak Inspiratory Airway 24 Pressure Peak Inspiratory Airway 22 Pressure Peak Inspiratory Airway 11 Pressure Peak Inspiratory Airway 26 Pressure Peak Inspiratory Airway 26 Pressure Peak Inspiratory Airway 26 Pressure Peak Inspiratory Airway 25 Pressure Peak Inspiratory Airway 25 Pressure Results - Laboratory Findings CBC and BMP: 09/27/18 03:55 09/27/18 03:55 ABG ABG pH 7.36 pH Units (7.32-7.45) 09/27/18 04:48 ABG pCO2 52 mmHg (35-45) H 09/27/18 04:48 ABG pO2 81 mmHg (85-104) L 09/27/18 04:48 ABG O2 Saturation 95 % (95-98) 09/27/18 04:48 Abnormal lab findings: Abnormal lab results WBC 12.6 K/mcL (4.3-11.1) H 09/25/18 15:02 RBC 3.23 M/mcL (4.19-5.50) L 09/27/18 03:55 Hgb 10.3 g/dL (12.9-16.9) L 09/27/18 03:55 Hct 32.6 % (37.5-50.1) L 09/27/18 03:55 MCV 100.9 fL (83.0-100.0) H 09/27/18 03:55 MCHC 31.5 g/dL (31.6-35.5) L 09/26/18 04:55 Neutrophils # 10.4 K/mcL (1.6-8.9) H 09/25/18 15:02 Lymphocytes # 0.4 K/mcL (0.6-4.6) L 09/27/18 03:55 Monocytes # 1.7 K/mcL (0.0-1.3) H 09/25/18 15:02 ABG pH 7.31 pH Units (7.32-7.45) L 09/25/18 18:14 ABG pCO2 52 mmHg (35-45) H 09/27/18 04:48 ABG pO2 81 mmHg (85-104) L 09/27/18 04:48 ABG HCO3 30 mEq/L (21-27) H 09/27/18 04:48 ABG Total CO2 31 mEq/L (20-26) H 09/27/18 04:48 ABG O2 Saturation 99 % (95-98) H 09/25/18 21:46 ABG Base Excess 7 mEq/L (-2 to 3) H 09/26/18 04:58 Potassium 6.0 mEq/L (3.5-5.1) H 09/25/18 15:02 Chloride 93 mEq/L (98-107) L 09/25/18 15:02 Carbon Dioxide 30 mEq/L (23-29) H 09/27/18 03:55 BUN 53 mg/dL (8-23) H 09/27/18 03:55 Creatinine 1.36 mg/dL (0.70-1.30) H 09/25/18 15:02 Est GFR (Non-Af Amer) 55 (> 60) L 09/27/18 03:55 BUN/Creatinine Ratio 42 (6-26) H 09/27/18 03:55 Glucose 134 mg/dL (70-105) H 09/27/18 03:55 POC Glucose 162 mg/dL (70-99) H 09/26/18 23:15 Calculated Osmolality 306 (280-300) H 09/27/18 03:55 Calcium 8.5 mg/dL (8.6-10.3) L 09/27/18 03:55 Venous Ioniz Calcium 1.12 mmol/L (1.15-1.35) L 09/27/18 04:13 Phosphorus 1.9 mg/dL (2.7-4.5) L 09/26/18 04:55 B-Natriuretic Peptide 126 pg/mL (Less than 100) H 09/25/18 15:02 Procalcitonin 0.34 ng/mL (0.00-0.15) H 09/26/18 08:25 - Microbiology Findings Microbiology Findings: Microbiology, Last 48 Hours 09/26/18 10:28 Sputum Culture - Preliminary Sputum 09/25/18 18:10 Blood Culture - Preliminary Peripheral Venipuncture Culture is incubating and being continuously monitored for growth. Final report to follow. 09/25/18 18:05 Blood Culture - Preliminary Peripheral Venipuncture Culture is incubating and being continuously monitored for growth. Final report to follow. - Clinical Findings Intake & Output: Intake & Output 09/26/18 09/27/18 09/27/18 23:59 07:59 15:59 Intake Total 300 / 1429 252.7 / 352.7 100 / 352.7 Output Total 125 / 375 175 / 175 Balance 175 / 1054 77.7 / 177.7 100 / 177.7 Weight 57 kg - VTE Documentation of Mechanical Device: Intermittent pneumatic compression device Consult Discharge Plan - Plan Referrals: [facility] [Primary Care Provider[facility] - <Lizz Chiu - Last Filed: 09/27/18 17:12> Date of Encounter: 09/27/18 Objective PUL Vital signs: Last Vital Signs Temp 97.2 F L 09/27/18 16:00 Pulse 72 09/27/18 16:00 Resp 16 09/27/18 16:00 BP 91/64 09/27/18 16:00 Pulse Ox 88 09/27/18 16:00 Ventilator Settings Ventilator Settings: Ventilator Settings, Last 8 Hours Ventilator Tidal Volume 400 Setting Ventilator Tidal Volume 400 Setting Ventilator Tidal Volume 400 Setting Ventilator Tidal Volume 400 Setting Ventilator Tidal Volume 400 Setting Ventilator Tidal Volume 400 Setting Ventilator Tidal Volume 400 Setting Ventilator Tidal Volume 400 Setting Ventilator Tidal Volume 400 Setting Ventilator Tidal Volume 400 Setting Ventilator Tidal Volume 400 Setting Ventilator Respiratory Rate 16 Setting Ventilator Respiratory Rate 16 Setting Ventilator Respiratory Rate 16 Setting Ventilator Respiratory Rate 16 Setting Ventilator Respiratory Rate 16 Setting Ventilator Respiratory Rate 16 Setting Ventilator Respiratory Rate 16 Setting Ventilator Respiratory Rate 16 Setting Ventilator Respiratory Rate 16 Setting Ventilator Respiratory Rate 16 Setting Ventilator Respiratory Rate 16 Setting Actual Respiratory Rate 16 Actual Respiratory Rate 18 Actual Respiratory Rate 16 Actual Respiratory Rate 16 Positive End Expiratory 5 Pressure Positive End Expiratory 5 Pressure Positive End Expiratory 5 Pressure Positive End Expiratory 5 Pressure Positive End Expiratory 5 Pressure Positive End Expiratory 5 Pressure Positive End Expiratory 5 Pressure Positive End Expiratory 5 Pressure Positive End Expiratory 5 Pressure Positive End Expiratory 5 Pressure Positive End Expiratory 5 Pressure Peak Inspiratory Airway 35 Pressure Peak Inspiratory Airway 29 Pressure Peak Inspiratory Airway 32 Pressure Peak Inspiratory Airway 33 Pressure Peak Inspiratory Airway 30 Pressure Peak Inspiratory Airway 32 Pressure Peak Inspiratory Airway 28 Pressure Peak Inspiratory Airway 26 Pressure Peak Inspiratory Airway 26 Pressure Peak Inspiratory Airway 24 Pressure Peak Inspiratory Airway 22 Pressure Results - Laboratory Findings CBC and BMP: 09/27/18 03:55 09/27/18 03:55 ABG ABG pH 7.36 pH Units (7.32-7.45) 09/27/18 04:48 ABG pCO2 52 mmHg (35-45) H 09/27/18 04:48 ABG pO2 81 mmHg (85-104) L 09/27/18 04:48 ABG O2 Saturation 95 % (95-98) 09/27/18 04:48 Abnormal lab findings: Abnormal lab results WBC 12.6 K/mcL (4.3-11.1) H 09/25/18 15:02 RBC 3.23 M/mcL (4.19-5.50) L 09/27/18 03:55 Hgb 10.3 g/dL (12.9-16.9) L 09/27/18 03:55 Hct 32.6 % (37.5-50.1) L 09/27/18 03:55 MCV 100.9 fL (83.0-100.0) H 09/27/18 03:55 MCHC 31.5 g/dL (31.6-35.5) L 09/26/18 04:55 Neutrophils # 10.4 K/mcL (1.6-8.9) H 09/25/18 15:02 Lymphocytes # 0.4 K/mcL (0.6-4.6) L 09/27/18 03:55 Monocytes # 1.7 K/mcL (0.0-1.3) H 09/25/18 15:02 ABG pH 7.31 pH Units (7.32-7.45) L 09/25/18 18:14 ABG pCO2 52 mmHg (35-45) H 09/27/18 04:48 ABG pO2 81 mmHg (85-104) L 09/27/18 04:48 ABG HCO3 30 mEq/L (21-27) H 09/27/18 04:48 ABG Total CO2 31 mEq/L (20-26) H 09/27/18 04:48 ABG O2 Saturation 99 % (95-98) H 09/25/18 21:46 ABG Base Excess 7 mEq/L (-2 to 3) H 09/26/18 04:58 Potassium 6.0 mEq/L (3.5-5.1) H 09/25/18 15:02 Chloride 93 mEq/L (98-107) L 09/25/18 15:02 Carbon Dioxide 30 mEq/L (23-29) H 09/27/18 03:55 BUN 53 mg/dL (8-23) H 09/27/18 03:55 Creatinine 1.36 mg/dL (0.70-1.30) H 09/25/18 15:02 Est GFR (Non-Af Amer) 55 (> 60) L 09/27/18 03:55 BUN/Creatinine Ratio 42 (6-26) H 09/27/18 03:55 Glucose 134 mg/dL (70-105) H 09/27/18 03:55 POC Glucose 162 mg/dL (70-99) H 09/26/18 23:15 Calculated Osmolality 306 (280-300) H 09/27/18 03:55 Calcium 8.5 mg/dL (8.6-10.3) L 09/27/18 03:55 Venous Ioniz Calcium 1.12 mmol/L (1.15-1.35) L 09/27/18 04:13 Phosphorus 1.9 mg/dL (2.7-4.5) L 09/26/18 04:55 B-Natriuretic Peptide 126 pg/mL (Less than 100) H 09/25/18 15:02 Procalcitonin 0.34 ng/mL (0.00-0.15) H 09/26/18 08:25 - Microbiology Findings Microbiology Findings: Microbiology, Last 48 Hours 09/26/18 10:28 Sputum Culture - Preliminary Sputum 09/25/18 18:10 Blood Culture - Preliminary Peripheral Venipuncture Culture is incubating and being continuously monitored for growth. Final report to follow. 09/25/18 18:05 Blood Culture - Preliminary Peripheral Venipuncture Culture is incubating and being continuously monitored for growth. Final report to follow. - Clinical Findings Intake & Output: Intake & Output 09/27/18 09/27/18 09/27/18 07:59 15:59 23:59 Intake Total 252.7 / 630.0 377.3 / 630.0 Output Total 175 / 650 350 / 650 125 / 650 Balance 77.7 / -20.0 27.3 / -20.0 -125 / -20.0 Weight 57 kg - Attending Attestation I saw and evaluated this patient and my medical decision-making was reviewed with the Resident Physician. I agree with the documented findings, disposition and treatment plan as described except to the extent set forth below. We independently had [id number] contact with the patient I spent 35 minutes of Critical Care time with this patient. It involved decision making of high complexity to assess, manipulate, and support vital organ system failure and/or to prevent further life threatening deterioration of the patient's condition. The time involved in the performance of separately reportable procedures was not counted toward critical care time . Patient seen and examined at bedside Labs, radiology, chart personally reviewed. Management was reviewed during multidisciplinary critical care rounds. 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 Most likely due to toxic /metabolic encephalopathy Pulm: Patient has acceptable oxygenation and ventilation COPD with acute on chronic hypoxic hypercarbic respiratory failure passed spontaneous breathing trial but did not follow commands. To keep him intubated we will give him Haldol to see whether he recovers and follows commands. Cards: Patient is hemodynamically stable no evidence of shock. FEN-GI: Advance diet as tolerated Renal: Labs and output reviewed ID: To cover with broad-spectrum antibiotics will soon de-escalate according to clinical response. Heme/Onc: Labs reviewed. Endo: Glucose Monitored Integ/MSK: Skin Care per routine ICU Nursing Protocol to prevent ulcers. Lines: All lines examined without evidence of infection : Dispo: critically ill CODE: Full code
[2018-09-27] MEDS: Haloperidol Lactate 5 MG/ML VIAL IVP SCH ×2 (11:54→19:41)
--- NOTE | 2018-09-27 12:05 | EEG/EMG/Oth Biometrics Report ---
EEG Procedure Report EEG Procedure: Routine EEG Procedure Note: This is a routine 21 channel digital EEG performed utilizing 10- 20 international electrode placement system. FINDINGS: Patient has a predominant waking background frequency that is average voltage 4- 6 Hz delta activity in the posterior region, low amplitude symmetrical over the both hemispheres minimal reactivity . record continued to show alpha activity intermixed with some theta off and on, no evidence of any spike wave discharges or any lateralizing abnormalities, Photic stimulation and hyperventilation did not produce any convulsive response. Intermittent EMG artifacts were noted. Stage II sleep was not achieved. Impression: Abnormal electroencephalogram. This EEG demonstrated generalized slowing which is a nonspecific pattern predominantly seen in patient with metabolic toxic encephalopathy consistent with diffuse neurological dysfunction ,No epileptiform discharges or any other paroxysmal activities noted.
[2018-09-27] MEDS: *HR* Heparin 5,000 UNIT/ML VIAL SQ SCH ×2 (14:30→21:27)
[2018-09-27] MEDS: Norepinephrine 4 MG in D5% in Water 250 ML IVC SCH (19:42)
[2018-09-28] MEDS: Artificial Tears SOLN 15 ML BOTTLE BOTH EYES SCH ×7 (00:26→23:26)
[2018-09-28] MEDS: MethylPREDNISolone 40 MG/ML VIAL IVP SCH ×4 (00:29→23:26)
[2018-09-28] MEDS: Insulin LISPRO 300 UNITS/3 ML VIAL SQ SCH ×5 (00:30→23:27)
[2018-09-28] MEDS: *HR* Midazolam HCl 2 MG/2 ML VIAL IVP PRN ×7 (01:40→23:05)
[2018-09-28] MEDS: Piperacillin/Tazobactam 3.375 GM in 0.9 % Sodium Chloride Mini Bag 100 ML IVPB SCH ×3 (01:59→17:30)
[2018-09-28] MEDS: Dexmedetomidine HCl 400 MCG/100 ML MLS IVC SCH ×4 (03:14→20:41)
[2018-09-28] MEDS: Ipratropium/Albuterol Neb 3 ML IH SCH ×4 (04:06→22:26)
[2018-09-28 04:38] LABS: ABG Base Excess 4 mEq/L (-2 to 3); ABG HCO3 31 mEq/L (21-27); ABG Oxygen Saturation 95 % (95-98); ABG PCO2 60 mmHg (35-45); ABG PH 7.32 pH Units (7.32-7.45); ABG PO2 82 mmHg (85-104); ABG TCO2 33 mEq/L (20-26); Blood Gas PEEP 5 cm H2O; Blood Gas VT 400 cc
[2018-09-28] MEDS: Haloperidol Lactate 5 MG/ML VIAL IVP SCH ×3 (04:45→19:28)
[2018-09-28] MEDS: *HR* Heparin 5,000 UNIT/ML VIAL SQ SCH ×3 (05:05→21:40)
[2018-09-28 05:15] LABS: Basophils % 0.2 %; Hematocrit 33.2 % (37.5-50.1); Hemoglobin 10.6 g/dL (12.9-16.9); Immature Granulocytes % 1.4 % (0-4); Lymphocytes # 0.3 K/mcL (0.6-4.6); Mean Corpuscular HGB Conc 31.9 g/dL (31.6-35.5); Mean Corpuscular Hemoglobin 32.2 pg (28.0-33.3); Mean Corpuscular Volume 100.9 fL (83.0-100.0); Mean Platelet Volume 10.5 fL (9.4-12.4); Monocytes # 0.6 K/mcL (0.0-1.3); Monocytes % 5.3 %; Neutrophils # 9.4 K/mcL (1.6-8.9); Platelet Count 182 K/mcL (140-400); Red Blood Count 3.29 M/mcL (4.19-5.50); Red Cell Distribution Width 13.9 % (11.5-14.5); Segmented Neutrophils % 90.1 %; White Blood Count 10.4 K/mcL (4.3-11.1)
[2018-09-28 05:36] LABS: BUN/Creatinine Ratio 46 (6-26); Blood Urea Nitrogen 63 mg/dL (8-23); Calcium 8.7 mg/dL (8.6-10.3); Carbon Dioxide 30 mEq/L (23-29); Chloride 104 mEq/L (98-107); Glucose 157 mg/dL (70-105); Magnesium 2.7 mg/dL (1.6-2.6); Osmolality,Calculated 317 (280-300); Potassium 4.9 mEq/L (3.5-5.1); Sodium 143 mEq/L (136-145); eGFR For African Americans > 60 (> 60); eGFR For Non-African Americans 50 (> 60)
[2018-09-28] MEDS ORDERED: Haloperidol Lactate 5 MG/ML VIAL ONE (07:26)
[2018-09-28] MEDS ORDERED: Haloperidol Lactate 5 MG/ML VIAL IVP ONE (07:31)
[2018-09-28] MEDS: Chlorhexidine Rinse 15 ML MOUTHWASH MM SCH ×2 (07:55→19:28)
[2018-09-28] MEDS: Pantoprazole 40 MG VIAL IVP SCH (07:55)
[2018-09-28] MEDS ORDERED: 0.9 % Sodium Chloride 1,000 ML IVC ONE (08:08)
[2018-09-28] MEDS: Budesonide/Formoterol 160/4.5 1 PUFF INH IH SCH ×2 (09:19→22:26)
--- NOTE | 2018-09-28 09:20 | Pulmonology Progress Note ---
<Sherine Jhaveri M - Last Filed: 09/28/18 12:47> Date of Encounter: 09/28/18 Time of Encounter: 09:20 Assessment and Plan (1) Acute respiratory failure with hypoxia and hypercapnia Current Visit: Yes Status: Acute * Patient was initially responsive to BiPAP in the emergency department but subsequently declined in respiratory function requiring intubation, family confirmed that he is full code * Today the patient continues to require mechanical ventilation * During CPAP trial this morning he was able to have spontaneous breathing but did not follow commands and did have an episode of eye staring off with non- purposeful movements of bilateral upper and lower extremities though slight concern for seizure, EEG shows no epileptiform waves and more concerning for metabolic encephalopathy, consistent with the patients picture * Repeat head CT negative for acute intracranial pathology * ABG this morning shows slight hypercapnia, appropriate for his COPD * Blood and sputum cultures, sputum shows normal oral hortencia no growth in blood cultures thus far * Continue with scheduled duonebs, Symbicort, steroids * Continuing Zosyn for pneumonia coverage, CXR unchanged today * Added Haldol IV 5 mg every 8 for possible hospital associated delirium, will continue * Tube feeding per nutrition (2) COPD with acute exacerbation Current Visit: Yes Status: Acute * Continuing with bronchodilators and steroids as above (3) Acute kidney injury Current Visit: Yes Status: Acute * Slgith worsening of creatinine today without significant urinary output yesterday * Will check urine sodium and creatinine * 1L fluid bolus (4) Hypotension Current Visit: Yes Status: Acute * No longer requiring vasopressors Qualifiers: Hypotension type: unspecified hypotension type Qualified Code(s): I95.9 - Hypotension, unspecified (5) Urinary retention Current Visit: Yes Status: Acute * Dr. Muñoz placed daily catheter for urinary retention on 09/26/18 with adequate urinary output now * He recommends removing catheter following extubation given the patient did not present with a catheter in place (6) Hyperglycemia Current Visit: Yes Status: Acute * Potentially related to steroids * Hemoglobin A1c 5.6 (7) DVT prophylaxis Current Visit: Yes Status: Acute * Subcutaneous heparin Subjective Interval history: Today the patient remains indented and sedated. The patient continues to be minimally responsive during CPAP trials, makes no purposeful movements of his hands, legs and does not follow commands. He was able to nod his head yes that he wanted the breathing tube out. Family is present for attempted reorientation without significant improvement. Objective PUL Vital signs: Last Vital Signs Temp 98.1 F 09/28/18 04:00 Pulse 88 09/28/18 08:43 Resp 21 09/28/18 08:00 BP 88/73 09/28/18 08:00 Pulse Ox 93 09/28/18 08:00 General appearance: comatose Eyes: nonicteric ENT: oropharynx moist Effort: normal Auscultation: bilateral: diminished breath sounds Cardiovascular: regular rate and rhythm Gastrointestinal: normoactive bowel sounds Integumentary: normal Extremities: no cyanosis Musculoskeletal: no deformities non-focal exam, pupils equal and round, unable to assess due to mental status, other (moves all extremities, no focal deficits) Ventilator Settings Ventilator Settings: Ventilator Settings, Last 8 Hours Ventilator Tidal Volume 400 Setting Ventilator Tidal Volume 400 Setting Ventilator Tidal Volume 400 Setting Ventilator Tidal Volume 400 Setting Ventilator Tidal Volume 400 Setting Ventilator Tidal Volume 400 Setting Ventilator Tidal Volume 400 Setting Ventilator Tidal Volume 400 Setting Ventilator Tidal Volume 400 Setting Ventilator Tidal Volume 400 Setting Ventilator Tidal Volume 400 Setting Ventilator Tidal Volume 400 Setting Ventilator Respiratory Rate 16 Setting Ventilator Respiratory Rate 16 Setting Ventilator Respiratory Rate 16 Setting Ventilator Respiratory Rate 16 Setting Ventilator Respiratory Rate 16 Setting Ventilator Respiratory Rate 16 Setting Ventilator Respiratory Rate 16 Setting Ventilator Respiratory Rate 16 Setting Ventilator Respiratory Rate 16 Setting Ventilator Respiratory Rate 16 Setting Ventilator Respiratory Rate 16 Setting Ventilator Respiratory Rate 16 Setting Actual Respiratory Rate 22 Actual Respiratory Rate 20 Actual Respiratory Rate 16 Actual Respiratory Rate 16 Actual Respiratory Rate 16 Actual Respiratory Rate 16 Actual Respiratory Rate 16 Actual Respiratory Rate 16 Actual Respiratory Rate 16 Actual Respiratory Rate 20 Actual Respiratory Rate 16 Positive End Expiratory 5 Pressure Positive End Expiratory 5 Pressure Positive End Expiratory 5 Pressure Positive End Expiratory 5 Pressure Positive End Expiratory 5 Pressure Positive End Expiratory 5 Pressure Positive End Expiratory 5 Pressure Positive End Expiratory 5 Pressure Positive End Expiratory 5 Pressure Positive End Expiratory 5 Pressure Positive End Expiratory 5 Pressure Positive End Expiratory 5 Pressure Peak Inspiratory Airway 9.4 Pressure Peak Inspiratory Airway 22 Pressure Peak Inspiratory Airway 22 Pressure Peak Inspiratory Airway 22 Pressure Peak Inspiratory Airway 28 Pressure Peak Inspiratory Airway 24 Pressure Peak Inspiratory Airway 17 Pressure Peak Inspiratory Airway 28 Pressure Peak Inspiratory Airway 18 Pressure Peak Inspiratory Airway 12 Pressure Peak Inspiratory Airway 27 Pressure Results - Laboratory Findings CBC and BMP: 09/28/18 05:00 09/28/18 05:00 ABG ABG pH 7.32 pH Units (7.32-7.45) 09/28/18 04:35 ABG pCO2 60 mmHg (35-45) H 09/28/18 04:35 ABG pO2 82 mmHg (85-104) L 09/28/18 04:35 ABG O2 Saturation 95 % (95-98) 09/28/18 04:35 Abnormal lab findings: Abnormal lab results WBC 12.6 K/mcL (4.3-11.1) H 09/25/18 15:02 RBC 3.29 M/mcL (4.19-5.50) L 09/28/18 05:00 Hgb 10.6 g/dL (12.9-16.9) L 09/28/18 05:00 Hct 33.2 % (37.5-50.1) L 09/28/18 05:00 MCV 100.9 fL (83.0-100.0) H 09/28/18 05:00 MCHC 31.5 g/dL (31.6-35.5) L 09/26/18 04:55 Neutrophils # 9.4 K/mcL (1.6-8.9) H 09/28/18 05:00 Lymphocytes # 0.3 K/mcL (0.6-4.6) L 09/28/18 05:00 Monocytes # 1.7 K/mcL (0.0-1.3) H 09/25/18 15:02 ABG pH 7.31 pH Units (7.32-7.45) L 09/25/18 18:14 ABG pCO2 60 mmHg (35-45) H 09/28/18 04:35 ABG pO2 82 mmHg (85-104) L 09/28/18 04:35 ABG HCO3 31 mEq/L (21-27) H 09/28/18 04:35 ABG Total CO2 33 mEq/L (20-26) H 09/28/18 04:35 ABG O2 Saturation 99 % (95-98) H 09/25/18 21:46 ABG Base Excess 4 mEq/L (-2 to 3) H 09/28/18 04:35 Potassium 6.0 mEq/L (3.5-5.1) H 09/25/18 15:02 Chloride 93 mEq/L (98-107) L 09/25/18 15:02 Carbon Dioxide 30 mEq/L (23-29) H 09/28/18 05:00 BUN 63 mg/dL (8-23) H 09/28/18 05:00 Creatinine 1.38 mg/dL (0.70-1.30) H 09/28/18 05:00 Est GFR (Non-Af Amer) 50 (> 60) L 09/28/18 05:00 BUN/Creatinine Ratio 46 (6-26) H 09/28/18 05:00 Glucose 157 mg/dL (70-105) H 09/28/18 05:00 POC Glucose 153 mg/dL (70-99) H 09/28/18 00:00 Calculated Osmolality 317 (280-300) H 09/28/18 05:00 Calcium 8.5 mg/dL (8.6-10.3) L 09/27/18 03:55 Venous Ioniz Calcium 1.12 mmol/L (1.15-1.35) L 09/27/18 04:13 Phosphorus 1.9 mg/dL (2.7-4.5) L 09/26/18 04:55 Magnesium 2.7 mg/dL (1.6-2.6) H 09/28/18 05:00 B-Natriuretic Peptide 126 pg/mL (Less than 100) H 09/25/18 15:02 Procalcitonin 0.34 ng/mL (0.00-0.15) H 09/26/18 08:25 - Microbiology Findings Microbiology Findings: Microbiology, Last 48 Hours 09/26/18 10:28 Sputum Culture - Preliminary Sputum - Diagnostic Findings Chest x-ray: report reviewed, image reviewed - Clinical Findings Intake & Output: Intake & Output 09/27/18 09/28/18 09/28/18 23:59 07:59 15:59 Intake Total 341 / 971.0 535 / 535 Output Total 225 / 950 350 / 350 Balance 116 / 21.0 185 / 185 Weight 56.4 kg - VTE Documentation of Mechanical Device: Intermittent pneumatic compression device Consult Discharge Plan - Plan Referrals: [facility] [Primary Care Provider[facility] - <Lizz Chiu - Last Filed: 09/28/18 22:43> Date of Encounter: 09/28/18 Objective PUL Vital signs: Last Vital Signs Temp 98.6 F 09/28/18 20:00 Pulse 77 09/28/18 22:00 Resp 16 09/28/18 22:27 BP 112/71 09/28/18 22:00 Pulse Ox 99 09/28/18 22:27 Ventilator Settings Ventilator Settings: Ventilator Settings, Last 8 Hours Ventilator Tidal Volume 400 Setting Ventilator Tidal Volume 400 Setting Ventilator Tidal Volume 400 Setting Ventilator Tidal Volume 400 Setting Ventilator Tidal Volume 400 Setting Ventilator Tidal Volume 400 Setting Ventilator Tidal Volume 400 Setting Ventilator Tidal Volume 400 Setting Ventilator Tidal Volume 400 Setting Ventilator Respiratory Rate 16 Setting Ventilator Respiratory Rate 16 Setting Ventilator Respiratory Rate 16 Setting Ventilator Respiratory Rate 16 Setting Ventilator Respiratory Rate 16 Setting Ventilator Respiratory Rate 16 Setting Ventilator Respiratory Rate 16 Setting Ventilator Respiratory Rate 16 Setting Ventilator Respiratory Rate 16 Setting Ventilator Respiratory Rate 16 Setting Ventilator Respiratory Rate 16 Setting Actual Respiratory Rate 16 Actual Respiratory Rate 16 Actual Respiratory Rate 16 Actual Respiratory Rate 16 Actual Respiratory Rate 16 Actual Respiratory Rate 16 Actual Respiratory Rate 16 Actual Respiratory Rate 16 Actual Respiratory Rate 16 Actual Respiratory Rate 19 Actual Respiratory Rate 18 Positive End Expiratory 5 Pressure Positive End Expiratory 5 Pressure Positive End Expiratory 5 Pressure Positive End Expiratory 5 Pressure Positive End Expiratory 5 Pressure Positive End Expiratory 5 Pressure Positive End Expiratory 5 Pressure Positive End Expiratory 5 Pressure Positive End Expiratory 5 Pressure Positive End Expiratory 5 Pressure Positive End Expiratory 5 Pressure Peak Inspiratory Airway 22 Pressure Peak Inspiratory Airway 22 Pressure Peak Inspiratory Airway 23 Pressure Peak Inspiratory Airway 23 Pressure Peak Inspiratory Airway 23 Pressure Peak Inspiratory Airway 24 Pressure Peak Inspiratory Airway 25 Pressure Peak Inspiratory Airway 23 Pressure Peak Inspiratory Airway 24 Pressure Peak Inspiratory Airway 21 Pressure Peak Inspiratory Airway 19 Pressure Results - Laboratory Findings CBC and BMP: 09/28/18 05:00 09/28/18 05:00 ABG ABG pH 7.32 pH Units (7.32-7.45) 09/28/18 04:35 ABG pCO2 60 mmHg (35-45) H 09/28/18 04:35 ABG pO2 82 mmHg (85-104) L 09/28/18 04:35 ABG O2 Saturation 95 % (95-98) 09/28/18 04:35 Abnormal lab findings: Abnormal lab results WBC 12.6 K/mcL (4.3-11.1) H 09/25/18 15:02 RBC 3.29 M/mcL (4.19-5.50) L 09/28/18 05:00 Hgb 10.6 g/dL (12.9-16.9) L 09/28/18 05:00 Hct 33.2 % (37.5-50.1) L 09/28/18 05:00 MCV 100.9 fL (83.0-100.0) H 09/28/18 05:00 MCHC 31.5 g/dL (31.6-35.5) L 09/26/18 04:55 Neutrophils # 9.4 K/mcL (1.6-8.9) H 09/28/18 05:00 Lymphocytes # 0.3 K/mcL (0.6-4.6) L 09/28/18 05:00 Monocytes # 1.7 K/mcL (0.0-1.3) H 09/25/18 15:02 ABG pH 7.31 pH Units (7.32-7.45) L 09/25/18 18:14 ABG pCO2 60 mmHg (35-45) H 09/28/18 04:35 ABG pO2 82 mmHg (85-104) L 09/28/18 04:35 ABG HCO3 31 mEq/L (21-27) H 09/28/18 04:35 ABG Total CO2 33 mEq/L (20-26) H 09/28/18 04:35 ABG O2 Saturation 99 % (95-98) H 09/25/18 21:46 ABG Base Excess 4 mEq/L (-2 to 3) H 09/28/18 04:35 Potassium 6.0 mEq/L (3.5-5.1) H 09/25/18 15:02 Chloride 93 mEq/L (98-107) L 09/25/18 15:02 Carbon Dioxide 30 mEq/L (23-29) H 09/28/18 05:00 BUN 63 mg/dL (8-23) H 09/28/18 05:00 Creatinine 1.38 mg/dL (0.70-1.30) H 09/28/18 05:00 Est GFR (Non-Af Amer) 50 (> 60) L 09/28/18 05:00 BUN/Creatinine Ratio 46 (6-26) H 09/28/18 05:00 Glucose 157 mg/dL (70-105) H 09/28/18 05:00 POC Glucose 153 mg/dL (70-99) H 09/28/18 00:00 Calculated Osmolality 317 (280-300) H 09/28/18 05:00 Calcium 8.5 mg/dL (8.6-10.3) L 09/27/18 03:55 Venous Ioniz Calcium 1.12 mmol/L (1.15-1.35) L 09/27/18 04:13 Phosphorus 1.9 mg/dL (2.7-4.5) L 09/26/18 04:55 Magnesium 2.7 mg/dL (1.6-2.6) H 09/28/18 05:00 B-Natriuretic Peptide 126 pg/mL (Less than 100) H 09/25/18 15:02 Procalcitonin 0.34 ng/mL (0.00-0.15) H 09/26/18 08:25 Staphylococcus sp PCR DETECTED (Not Detect) A 09/25/18 18:05 - Microbiology Findings Microbiology Findings: Microbiology, Last 48 Hours 09/26/18 10:28 Sputum Culture - Preliminary Sputum 09/25/18 18:05 Blood Culture - Preliminary Peripheral Venipuncture Gram Positive Cocci - Clinical Findings Intake & Output: Intake & Output 09/28/18 09/28/18 09/28/18 07:59 15:59 23:59 Intake Total 535 / 2513 1393 / 2513 585 / 2513 Output Total 350 / 775 275 / 775 150 / 775 Balance 185 / 1738 1118 / 1738 435 / 1738 Weight 56.4 kg - Attending Attestation I saw and evaluated this patient and my medical decision-making was reviewed with the Resident Physician. I agree with the documented findings, disposition and treatment plan as described except to the extent set forth below. We independently had [id number] contact with the patient I spent 35 minutes of Critical Care time with this patient. It involved decision making of high complexity to assess, manipulate, and support vital organ system failure and/or to prevent further life threatening deterioration of the patient's condition. The time involved in the performance of separately reportable procedures was not counted toward critical care time. Patient seen and examined at bedside Labs, radiology, chart personally reviewed. Management was reviewed during multidisciplinary critical care rounds. [employer]: Patient is encephalopathy EEG did not show evidence of any seizure activity nor focal activity. More consistent with toxic/metabolic encephalopathy complicated by possible alcohol withdrawal patient is on antipsychotics patient was not following commands even though he was doing well in the spontaneous breathing trial Pulm: Patient has acceptable oxygenation and ventilation patient did well and well on spontaneous breathing trial patient was not ready for extubation because of significant encephalopathy complicating the current picture in liberation from mechanical ventilation. Cards: Patient has acceptable blood pressure hemodynamically stable no evidence of acute coronary syndrome no evidence of fluid overload. FEN-GI: Advance diet as tolerated Renal: Labs and output were reviewed ID: To de-escalate antibiotics according to response. Heme/Onc: Labs reviewed. Endo: Glucose Monitored Integ/MSK: Skin Care per routine ICU Nursing Protocol to prevent ulcers. Lines: All lines examined without evidence of infection : Dispo: critically ill CODE: Full Code
[2018-09-28 10:18] LABS: Sodium, Urine 11.9 mEq/L
[2018-09-28 12:24] LABS: Acinetobacter baumannii by PCR Not Detected (Not Detect); Candida albicans by PCR Not Detected (Not Detect); Candida glabrata by PCR Not Detected (Not Detect); Candida krusei by PCR Not Detected (Not Detect); Candida parapsilosis by PCR Not Detected (Not Detect); Candida tropicalis by PCR Not Detected (Not Detect); Enterobacter cloacae Cmplx PCR Not Detected (Not Detect); Enterobacteriaceae by PCR Not Detected (Not Detect); Enterococcus by PCR Not Detected (Not Detect); Escherichia coli by PCR Not Detected (Not Detect); Klebsiella oxytoca by PCR Not Detected (Not Detect); Klebsiella pneumoniae by PCR Not Detected (Not Detect); Proteus by PCR Not Detected (Not Detect); Pseudomonas aeruginosa by PCR Not Detected (Not Detect); Serratia marcescens by PCR Not Detected (Not Detect); Staphylococcus aureus by PCR Not Detected (Not Detect); Staphylococcus by PCR DETECTED (Not Detect); Streptococcus agalactiae(B)PCR Not Detected (Not Detect); Streptococcus by PCR Not Detected (Not Detect); Streptococcus pneumoniae PCR Not Detected (Not Detect); Streptococcus pyogenes (A) PCR Not Detected (Not Detect); blaKPC Carbapenem-Resist Gene Not Detected (Not Detect); mecA Methicillin-Resist Gene Not Detected (Not Detect); vanA/B Vancomycin-Resist Genes Not Detected (Not Detect)
[2018-09-28] MEDS: Norepinephrine 4 MG in D5% in Water 250 ML IVC SCH (19:28)
[2018-09-29] MEDS: Piperacillin/Tazobactam 3.375 GM in 0.9 % Sodium Chloride Mini Bag 100 ML IVPB SCH ×3 (01:58→18:22)
[2018-09-29] MEDS: *HR* Midazolam HCl 2 MG/2 ML VIAL IVP PRN ×4 (02:01→16:07)
[2018-09-29] MEDS: Dexmedetomidine HCl 400 MCG/100 ML MLS IVC SCH ×4 (02:01→19:23)
[2018-09-29] MEDS: Artificial Tears SOLN 15 ML BOTTLE BOTH EYES SCH ×6 (03:09→23:34)
[2018-09-29] MEDS: Haloperidol Lactate 5 MG/ML VIAL IVP SCH ×3 (03:13→19:15)
[2018-09-29] MEDS: Ipratropium/Albuterol Neb 3 ML IH SCH ×4 (03:47→21:34)
[2018-09-29 04:01] LABS: BUN/Creatinine Ratio 45 (6-26); Blood Urea Nitrogen 54 mg/dL (8-23); Calcium 8.7 mg/dL (8.6-10.3); Carbon Dioxide 33 mEq/L (23-29); Chloride 108 mEq/L (98-107); Glucose 128 mg/dL (70-105); Magnesium 2.8 mg/dL (1.6-2.6); Osmolality,Calculated 316 (280-300); Phosphorous 3.4 mg/dL (2.7-4.5); Potassium 4.6 mEq/L (3.5-5.1); Sodium 145 mEq/L (136-145); eGFR For African Americans > 60 (> 60); eGFR For Non-African Americans 58 (> 60)
[2018-09-29 04:12] LABS: Basophils # 0.1 K/mcL (0.0-0.2); Basophils % 0.8 %; Hematocrit 32.4 % (37.5-50.1); Hemoglobin 10.1 g/dL (12.9-16.9); Immature Granulocytes % 5.4 % (0-4); Lymphocytes # 0.4 K/mcL (0.6-4.6); Lymphocytes % 3.4 %; Mean Corpuscular HGB Conc 31.2 g/dL (31.6-35.5); Mean Corpuscular Volume 102.5 fL (83.0-100.0); Mean Platelet Volume 10.9 fL (9.4-12.4); Monocytes # 0.5 K/mcL (0.0-1.3); Monocytes % 4.8 %; Neutrophils # 8.8 K/mcL (1.6-8.9); Platelet Count 188 K/mcL (140-400); Red Blood Count 3.16 M/mcL (4.19-5.50); Red Cell Distribution Width 13.9 % (11.5-14.5); Segmented Neutrophils % 85.6 %; White Blood Count 10.3 K/mcL (4.3-11.1)
[2018-09-29 04:42] LABS: Platelet Estimate Normal (Normal)
[2018-09-29 05:00] LABS: ABG Base Excess 5 mEq/L (-2 to 3); ABG HCO3 32 mEq/L (21-27); ABG Oxygen Saturation 96 % (95-98); ABG PCO2 58 mmHg (35-45); ABG PH 7.35 pH Units (7.32-7.45); ABG PO2 91 mmHg (85-104); ABG TCO2 34 mEq/L (20-26); Blood Gas Modality ASSIST CONTROL; Blood Gas PEEP 5 cm H2O; Blood Gas VT 400 cc
[2018-09-29] MEDS: *HR* Heparin 5,000 UNIT/ML VIAL SQ SCH ×3 (05:47→21:23)
[2018-09-29] MEDS: Insulin LISPRO 300 UNITS/3 ML VIAL SQ SCH ×4 (05:48→23:34)
[2018-09-29] MEDS: MethylPREDNISolone 40 MG/ML VIAL IVP SCH ×3 (08:26→23:50)
[2018-09-29] MEDS: Chlorhexidine Rinse 15 ML MOUTHWASH MM SCH ×2 (08:28→19:53)
[2018-09-29] MEDS: Pantoprazole 40 MG VIAL IVP SCH (08:37)
[2018-09-29] MEDS: Budesonide/Formoterol 160/4.5 1 PUFF INH IH SCH ×2 (10:20→21:34)
--- NOTE | 2018-09-29 11:07 | Pulmonology Progress Note ---
<Sherine Jhaveri M - Last Filed: 09/29/18 15:14> Date of Encounter: 09/29/18 Time of Encounter: 11:07 Assessment and Plan (1) Acute respiratory failure with hypoxia and hypercapnia Current Visit: Yes Status: Acute * Patient was initially responsive to BiPAP in the emergency department but subsequently declined in respiratory function requiring intubation, family confirmed that he is full code * Today the patient was able to be relieved from ventilator. Now on BiPAP and though intermittently agitated, he continues to do well off the ventilator * Blood and sputum cultures, sputum shows normal oral hortencia no growth in blood cultures thus far * Continue with scheduled duonebs, Symbicort, steroids * Continuing Zosyn for pneumonia coverage * Continue haldol for possible ICU delirium * Tube feeding per nutrition (2) COPD with acute exacerbation Current Visit: Yes Status: Acute * Continuing with bronchodilators and steroids as above (3) Acute kidney injury Current Visit: Yes Status: Acute * Improvement in acute kidney injury (4) Hypotension Current Visit: Yes Status: Acute * No longer requiring vasopressors Qualifiers: Hypotension type: unspecified hypotension type Qualified Code(s): I95.9 - Hypotension, unspecified (5) Urinary retention Current Visit: Yes Status: Acute * Dr. Muñoz placed daily catheter for urinary retention on 09/26/18 with adequate urinary output now * He recommends removing catheter following extubation given the patient did not present with a catheter in place (6) Hyperglycemia Current Visit: Yes Status: Acute * Potentially related to steroids * Hemoglobin A1c 5.6 (7) DVT prophylaxis Current Visit: Yes Status: Acute * Subcutaneous heparin Subjective Interval history: Today the patient underwent CPAP trial and was able to be extubated succesfully. He is tolerating BiPAP but continues to be agitated intermittently. Objective PUL Vital signs: Last Vital Signs Temp 96.7 F L 09/29/18 07:12 Pulse 93 09/29/18 09:00 Resp 16 09/29/18 10:20 BP 100/65 09/29/18 09:00 Pulse Ox 97 09/29/18 10:20 General appearance: no acute distress Eyes: nonicteric ENT: oropharynx moist Effort: normal, mildly labored Auscultation: bilateral: diminished breath sounds Cardiovascular: other (sinus tachycardia) Gastrointestinal: normoactive bowel sounds Integumentary: normal Extremities: no cyanosis, no edema Musculoskeletal: no deformities pupils equal and round, unable to assess due to mental status Ventilator Settings Ventilator Settings: Ventilator Settings, Last 8 Hours Ventilator Tidal Volume 400 Setting Ventilator Tidal Volume 400 Setting Ventilator Tidal Volume 400 Setting Ventilator Tidal Volume 400 Setting Ventilator Tidal Volume 400 Setting Ventilator Tidal Volume 400 Setting Ventilator Tidal Volume 400 Setting Ventilator Respiratory Rate 16 Setting Ventilator Respiratory Rate 16 Setting Ventilator Respiratory Rate 16 Setting Ventilator Respiratory Rate 16 Setting Ventilator Respiratory Rate 16 Setting Ventilator Respiratory Rate 16 Setting Ventilator Respiratory Rate 16 Setting Actual Respiratory Rate 16 Actual Respiratory Rate 16 Actual Respiratory Rate 16 Actual Respiratory Rate 16 Actual Respiratory Rate 16 Actual Respiratory Rate 16 Positive End Expiratory 5 Pressure Positive End Expiratory 5 Pressure Positive End Expiratory 5 Pressure Positive End Expiratory 5 Pressure Positive End Expiratory 5 Pressure Positive End Expiratory 5 Pressure Positive End Expiratory 5 Pressure Peak Inspiratory Airway 23 Pressure Peak Inspiratory Airway 23 Pressure Peak Inspiratory Airway 23 Pressure Peak Inspiratory Airway 22 Pressure Peak Inspiratory Airway 23 Pressure Peak Inspiratory Airway 22 Pressure Results - Laboratory Findings CBC and BMP: 09/29/18 03:25 09/29/18 03:25 ABG ABG pH 7.35 pH Units (7.32-7.45) 09/29/18 04:56 ABG pCO2 58 mmHg (35-45) H 09/29/18 04:56 ABG pO2 91 mmHg (85-104) 09/29/18 04:56 ABG O2 Saturation 96 % (95-98) 09/29/18 04:56 Abnormal lab findings: Abnormal lab results WBC 12.6 K/mcL (4.3-11.1) H 09/25/18 15:02 RBC 3.16 M/mcL (4.19-5.50) L 09/29/18 03:25 Hgb 10.1 g/dL (12.9-16.9) L 09/29/18 03:25 Hct 32.4 % (37.5-50.1) L 09/29/18 03:25 MCV 102.5 fL (83.0-100.0) H 09/29/18 03:25 MCHC 31.2 g/dL (31.6-35.5) L 09/29/18 03:25 Immature Gran % 5.4 % (0-4) H 09/29/18 03:25 Neutrophils # 9.4 K/mcL (1.6-8.9) H 09/28/18 05:00 Lymphocytes # 0.4 K/mcL (0.6-4.6) L 09/29/18 03:25 Monocytes # 1.7 K/mcL (0.0-1.3) H 09/25/18 15:02 ABG pH 7.31 pH Units (7.32-7.45) L 09/25/18 18:14 ABG pCO2 58 mmHg (35-45) H 09/29/18 04:56 ABG pO2 82 mmHg (85-104) L 09/28/18 04:35 ABG HCO3 32 mEq/L (21-27) H 09/29/18 04:56 ABG Total CO2 34 mEq/L (20-26) H 09/29/18 04:56 ABG O2 Saturation 99 % (95-98) H 09/25/18 21:46 ABG Base Excess 5 mEq/L (-2 to 3) H 09/29/18 04:56 Potassium 6.0 mEq/L (3.5-5.1) H 09/25/18 15:02 Chloride 108 mEq/L (98-107) H 09/29/18 03:25 Carbon Dioxide 33 mEq/L (23-29) H 09/29/18 03:25 BUN 54 mg/dL (8-23) H 09/29/18 03:25 Creatinine 1.38 mg/dL (0.70-1.30) H 09/28/18 05:00 Est GFR (Non-Af Amer) 58 (> 60) L 09/29/18 03:25 BUN/Creatinine Ratio 45 (6-26) H 09/29/18 03:25 Glucose 128 mg/dL (70-105) H 09/29/18 03:25 POC Glucose 167 mg/dL (70-99) H 09/28/18 23:01 Calculated Osmolality 316 (280-300) H 09/29/18 03:25 Calcium 8.5 mg/dL (8.6-10.3) L 09/27/18 03:55 Venous Ioniz Calcium 1.12 mmol/L (1.15-1.35) L 09/27/18 04:13 Phosphorus 1.9 mg/dL (2.7-4.5) L 09/26/18 04:55 Magnesium 2.8 mg/dL (1.6-2.6) H 09/29/18 03:25 B-Natriuretic Peptide 126 pg/mL (Less than 100) H 09/25/18 15:02 Procalcitonin 0.34 ng/mL (0.00-0.15) H 09/26/18 08:25 Staphylococcus sp PCR DETECTED (Not Detect) A 09/25/18 18:05 - Microbiology Findings Microbiology Findings: Microbiology, Last 48 Hours 09/25/18 18:05 Blood Culture - Preliminary Peripheral Venipuncture Gram Positive Cocci 09/26/18 10:28 Sputum Culture - Preliminary Sputum - Clinical Findings Intake & Output: Intake & Output 09/28/18 09/29/18 09/29/18 23:59 07:59 15:59 Intake Total 585 / 2513 380 / 380 Output Total 300 / 925 400 / 400 Balance 285 / 1588 -20 20 Weight 55.7 kg - VTE Documentation of Mechanical Device: Intermittent pneumatic compression device Consult Discharge Plan - Plan [facility]errals: [facility] Care Provider[facility] - <Lizz Chiu - Last Filed: 09/29/18 17:34> Date of Encounter: 09/29/18 Objective PUL Vital signs: Last Vital Signs Temp 99.1 F 09/29/18 12:06 Pulse 118 09/29/18 17:00 Resp 18 09/29/18 17:00 BP 149/101 09/29/18 17:00 Pulse Ox 98 09/29/18 17:00 Results - Laboratory Findings CBC and BMP: 09/29/18 03:25 09/29/18 03:25 ABG ABG pH 7.35 pH Units (7.32-7.45) 09/29/18 04:56 ABG pCO2 58 mmHg (35-45) H 09/29/18 04:56 ABG pO2 91 mmHg (85-104) 09/29/18 04:56 ABG O2 Saturation 96 % (95-98) 09/29/18 04:56 Abnormal lab findings: Abnormal lab results WBC 12.6 K/mcL (4.3-11.1) H 09/25/18 15:02 RBC 3.16 M/mcL (4.19-5.50) L 09/29/18 03:25 Hgb 10.1 g/dL (12.9-16.9) L 09/29/18 03:25 Hct 32.4 % (37.5-50.1) L 09/29/18 03:25 MCV 102.5 fL (83.0-100.0) H 09/29/18 03:25 MCHC 31.2 g/dL (31.6-35.5) L 09/29/18 03:25 Immature Gran % 5.4 % (0-4) H 09/29/18 03:25 Neutrophils # 9.4 K/mcL (1.6-8.9) H 09/28/18 05:00 Lymphocytes # 0.4 K/mcL (0.6-4.6) L 09/29/18 03:25 Monocytes # 1.7 K/mcL (0.0-1.3) H 09/25/18 15:02 ABG pH 7.31 pH Units (7.32-7.45) L 09/25/18 18:14 ABG pCO2 58 mmHg (35-45) H 09/29/18 04:56 ABG pO2 82 mmHg (85-104) L 09/28/18 04:35 ABG HCO3 32 mEq/L (21-27) H 09/29/18 04:56 ABG Total CO2 34 mEq/L (20-26) H 09/29/18 04:56 ABG O2 Saturation 99 % (95-98) H 09/25/18 21:46 ABG Base Excess 5 mEq/L (-2 to 3) H 09/29/18 04:56 Potassium 6.0 mEq/L (3.5-5.1) H 09/25/18 15:02 Chloride 108 mEq/L (98-107) H 09/29/18 03:25 Carbon Dioxide 33 mEq/L (23-29) H 09/29/18 03:25 BUN 54 mg/dL (8-23) H 09/29/18 03:25 Creatinine 1.38 mg/dL (0.70-1.30) H 09/28/18 05:00 Est GFR (Non-Af Amer) 58 (> 60) L 09/29/18 03:25 BUN/Creatinine Ratio 45 (6-26) H 09/29/18 03:25 Glucose 128 mg/dL (70-105) H 09/29/18 03:25 POC Glucose 167 mg/dL (70-99) H 09/28/18 23:01 Calculated Osmolality 316 (280-300) H 09/29/18 03:25 Calcium 8.5 mg/dL (8.6-10.3) L 09/27/18 03:55 Venous Ioniz Calcium 1.12 mmol/L (1.15-1.35) L 09/27/18 04:13 Phosphorus 1.9 mg/dL (2.7-4.5) L 09/26/18 04:55 Magnesium 2.8 mg/dL (1.6-2.6) H 09/29/18 03:25 B-Natriuretic Peptide 126 pg/mL (Less than 100) H 09/25/18 15:02 Procalcitonin 0.34 ng/mL (0.00-0.15) H 09/26/18 08:25 Staphylococcus sp PCR DETECTED (Not Detect) A 09/25/18 18:05 - Microbiology Findings Microbiology Findings: Microbiology, Last 48 Hours 09/26/18 10:28 Sputum Culture - Preliminary Sputum 09/25/18 18:05 Blood Culture - Preliminary Peripheral Venipuncture Gram Positive Cocci - Clinical Findings Intake & Output: Intake & Output 09/29/18 09/29/18 09/29/18 07:59 15:59 23:59 Intake Total 380 / 480 100 / 480 Output Total 400 / 550 150 / 550 Balance -20 / -70 -50 / -70 - Attending Attestation I saw and evaluated this patient and my medical decision-making was reviewed with the Resident Physician. I agree with the documented findings, disposition and treatment plan as described except to the extent set forth below. We independently had [id number] contact with the patient I spent 32 minutes of Critical Care time with this patient. It involved decision making of high complexity to assess, manipulate, and support vital organ system failure and/or to prevent further life threatening deterioration of the patient's condition. The time involved in the performance of separately reportable procedures was not counted toward critical care time. Patient seen and examined at bedside Labs, radiology, chart personally reviewed. Management was reviewed during multidisciplinary critical care rounds. 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 More consistent with toxic/metabolic encephalopathy complicated by possible alcohol withdrawal patient is on antipsychotics patient was not following commands even though he was doing well in the spontaneous breathing trial 09/29 is toxic/metabolic encephalopathy patient is on scheduled Haldol patient is more alert following commands but still confused and agitated on and off patient is doing well Araiza's breathing trial will extubate probably put him on Precedex. Pulm: Patient has acceptable oxygenation and ventilation patient did well and well on spontaneous breathing trial patient was not ready for extubation because of significant encephalopathy complicating the current picture in liberation from mechanical ventilation. 09/29 patient did well on the spontaneous breathing trial will extubate to BiPAP toward the medication that will cause hypoventilation that can worsen excessive hypoventilation due to COPD. Cards: Patient is hemodynamically stable no evidence of fluid overload. FEN-GI: Advance diet as tolerated Renal: Labs and output were reviewed ID: To de-escalate antibiotics according to response. Heme/Onc: Labs reviewed. Endo: Glucose Monitored Integ/MSK: Skin Care per routine ICU Nursing Protocol to prevent ulcers. Lines: All lines examined without evidence of infection : Dispo: critically ill patient has high risk for reintubation CODE: Full Code
[2018-09-29] MEDS: *HR* LORazepam 2 MG/ML VIAL IVP PRN ×2 (19:15→21:28)
[2018-09-30] MEDS: Dexmedetomidine HCl 400 MCG/100 ML MLS IVC SCH ×3 (00:39→13:45)
[2018-09-30] MEDS: Piperacillin/Tazobactam 3.375 GM in 0.9 % Sodium Chloride Mini Bag 100 ML IVPB SCH ×2 (01:26→11:58)
[2018-09-30] MEDS: *HR* LORazepam 2 MG/ML VIAL IVP PRN (01:26)
[2018-09-30] MEDS: Ipratropium/Albuterol Neb 3 ML IH SCH ×4 (04:12→21:49)
[2018-09-30] MEDS: Artificial Tears SOLN 15 ML BOTTLE BOTH EYES SCH ×2 (04:38→09:04)
[2018-09-30] MEDS: Haloperidol Lactate 5 MG/ML VIAL IVP SCH (04:38)
[2018-09-30 04:57] LABS: Hematocrit 33.2 % (37.5-50.1); Hemoglobin 10.5 g/dL (12.9-16.9); Mean Corpuscular HGB Conc 31.6 g/dL (31.6-35.5); Mean Corpuscular Hemoglobin 32.4 pg (28.0-33.3); Mean Corpuscular Volume 102.5 fL (83.0-100.0); Mean Platelet Volume 10.1 fL (9.4-12.4); Platelet Count 181 K/mcL (140-400); Red Blood Count 3.24 M/mcL (4.19-5.50); Red Cell Distribution Width 13.6 % (11.5-14.5); White Blood Count 11.7 K/mcL (4.3-11.1)
[2018-09-30 05:18] LABS: BUN/Creatinine Ratio 40 (6-26); Blood Urea Nitrogen 37 mg/dL (8-23); Calcium 8.9 mg/dL (8.6-10.3); Carbon Dioxide 37 mEq/L (23-29); Chloride 104 mEq/L (98-107); Glucose 153 mg/dL (70-105); Magnesium 2.4 mg/dL (1.6-2.6); Osmolality,Calculated 318 (280-300); Phosphorous 2.9 mg/dL (2.7-4.5); Potassium 4.3 mEq/L (3.5-5.1); Sodium 148 mEq/L (136-145); eGFR For African Americans > 60 (> 60); eGFR For Non-African Americans > 60 (> 60)
[2018-09-30 05:19] LABS: Lymphocytes # 0.2 K/mcL (0.6-4.6); Neutrophils # 11.2 K/mcL (1.6-8.9)
[2018-09-30 05:20] LABS: Platelet Estimate Normal (Normal)
[2018-09-30] MEDS: *HR* Heparin 5,000 UNIT/ML VIAL SQ SCH ×3 (05:41→22:19)
[2018-09-30] MEDS: Insulin LISPRO 300 UNITS/3 ML VIAL SQ SCH ×4 (05:43→23:15)
--- NOTE | 2018-09-30 07:45 | Internal Med Progress Note ---
Hospitalist Progress Note - Encounter Date of Encounter: 09/30/18 Time of Encounter: 07:45 - Exam Vitals: Temp Pulse Resp BP Pulse Ox 97.4 F L 86 20 143/86 99 09/30/18 04:21 09/30/18 06:00 09/30/18 06:00 09/30/18 06:00 09/30/18 06:00 - Assessment and Plan (1) Acute respiratory failure with hypoxia and hypercapnia Current Visit: Yes Status: Acute (2) Hyperkalemia Current Visit: Yes Status: Acute (3) COPD with acute exacerbation Current Visit: Yes Status: Acute (4) Acute kidney injury Current Visit: Yes Status: Acute (5) Hypotension Current Visit: Yes Status: Acute (6) DVT prophylaxis Current Visit: Yes Status: Acute - Time Spent with Patient Total time spent is greater than 50% in coordination of care (as documented) at patient's floor/unit and/or counseling patient: Internal Medicine: Result - Labs CBC & Chem 7: 09/30/18 04:45 09/30/18 04:45 Labs: Short CBC 09/30/18 Range/Units 04:45 WBC 11.7 H (4.3-11.1) K/mcL Hgb 10.5 L (12.9-16.9) g/dL Hct 33.2 L (37.5-50.1) % Plt Count 181 (140-400) K/mcL Neutrophils # 11.2 H (1.6-8.9) K/mcL BMP 09/30/18 04:45 Sodium 148 H Potassium 4.3 Chloride 104 Carbon Dioxide 37 H BUN 37 H Creatinine 0.93 Glucose 153 H Calcium 8.9 - ABG Interpretation ABG results: ABG ABG pH 7.35 pH Units (7.32-7.45) 09/29/18 04:56 ABG pCO2 58 mmHg (35-45) H 09/29/18 04:56 ABG pO2 91 mmHg (85-104) 09/29/18 04:56 ABG O2 Saturation 96 % (95-98) 09/29/18 04:56 - VTE Documentation of Mechanical Device: Intermittent pneumatic compression device Consult Discharge Plan - Plan [facility]errals: [facility] [Primary Care Provider[facility] - (5) Hypotension Qualifiers: Hypotension type: unspecified hypotension type Qualified Code(s): I95.9 - Hypotension, unspecified
--- NOTE | 2018-09-30 07:47 | Pulmonology Progress Note ---
<TjLeroyPeyton R - Last Filed: 09/30/18 16:44> Date of Encounter: 09/30/18 Time of Encounter: 07:47 Assessment and Plan (1) Acute respiratory failure with hypoxia and hypercapnia Status: Acute Patient was initially responsive to BiPAP in the emergency department but subsequently declined in respiratory function requiring intubation, family confirmed that he is full code Extubated yesterday Was on BiPAP and though intermittently agitated, he continues to do well off the ventilator Blood and sputum cultures, sputum shows normal oral hortencia no growth in blood cultures thus far Continue with scheduled duonebs, Symbicort IV steroids decreased to 40mg Solu-medrol q12H Continuing Zosyn for pneumonia coverage Continue haldol for possible ICU delirium - pt not on any antpsychotics at home Tube feeding per nutrition Consult to speech for swallow eval CXR ordered due to crackles heard bilaterally - 20mg IV Lasix will be given CXR did not show any new consolidations therefore we will DC zosyn (2) COPD with acute exacerbation Status: Acute Continuing with bronchodilators and steroids as above (3) Acute kidney injury Status: Acute Improvement in RADHA Cre now normal at 0.93 (4) Hypernatremia Status: Acute Na today 148 Pt has not received any fluids and is still NPO Will start D5W .45NS at 75mls/hr Continue to monitor (5) Hypotension Status: Acute No longer requiring vasopressors Qualifiers: Hypotension type: unspecified hypotension type Qualified Code(s): I95.9 - Hypotension, unspecified (6) Urinary retention Status: Acute Dr. Muñoz placed urinary catheter for urinary retention on 09/26 Adequate urinary outflow from catheter since placement Recommends removal of catheter s/p extubation Pt now extubated but continues to require sedation for delerium Will remove catheter once sedation can be weaned (7) Hyperglycemia Status: Acute Potentially related to steroids Hemoglobin A1c 5.6 Low dose SSI with q6H Accu-cheks (8) DVT prophylaxis Status: Acute SQ Heparin Subjective Interval history: Pt continues to do well off ventilator and BiPAP. He is still agitated and requiring Precedex with Ativan PRN for agitation. He is in soft restraints. Family states he acts like this at home but is no on any antipsychotics. Will consult speech therapy for a swallow eval to determine if the patient is at risk for aspiration. Crackles noted on bilateral lung auscultation, will give 20mg IV Lasix and obtain CXR. Objective PUL Vital signs: Last Vital Signs Temp 97.4 F L 09/30/18 04:21 Pulse 86 09/30/18 06:00 Resp 20 09/30/18 06:00 BP 143/86 09/30/18 06:00 Pulse Ox 99 09/30/18 06:00 General appearance: asleep Eyes: nonicteric Effort: normal Auscultation: bilateral: wheezes, rhonchi Cardiovascular: regular rate and rhythm Gastrointestinal: soft, non-tender Integumentary: normal Extremities: no edema non-focal exam, pupils equal and round Results - Laboratory Findings CBC and BMP: 09/30/18 04:45 09/30/18 04:45 ABG ABG pH 7.35 pH Units (7.32-7.45) 09/29/18 04:56 ABG pCO2 58 mmHg (35-45) H 09/29/18 04:56 ABG pO2 91 mmHg (85-104) 09/29/18 04:56 ABG O2 Saturation 96 % (95-98) 09/29/18 04:56 Abnormal lab findings: Abnormal lab results WBC 11.7 K/mcL (4.3-11.1) H 09/30/18 04:45 RBC 3.24 M/mcL (4.19-5.50) L 09/30/18 04:45 Hgb 10.5 g/dL (12.9-16.9) L 09/30/18 04:45 Hct 33.2 % (37.5-50.1) L 09/30/18 04:45 MCV 102.5 fL (83.0-100.0) H 09/30/18 04:45 MCHC 31.2 g/dL (31.6-35.5) L 09/29/18 03:25 Immature Gran % 5.4 % (0-4) H 09/29/18 03:25 Myelocytes % 2.0 % (0) H 09/30/18 04:45 Neutrophils # 11.2 K/mcL (1.6-8.9) H 09/30/18 04:45 Lymphocytes # 0.2 K/mcL (0.6-4.6) L 09/30/18 04:45 Monocytes # 1.7 K/mcL (0.0-1.3) H 09/25/18 15:02 ABG pH 7.31 pH Units (7.32-7.45) L 09/25/18 18:14 ABG pCO2 58 mmHg (35-45) H 09/29/18 04:56 ABG pO2 82 mmHg (85-104) L 09/28/18 04:35 ABG HCO3 32 mEq/L (21-27) H 09/29/18 04:56 ABG Total CO2 34 mEq/L (20-26) H 09/29/18 04:56 ABG O2 Saturation 99 % (95-98) H 09/25/18 21:46 ABG Base Excess 5 mEq/L (-2 to 3) H 09/29/18 04:56 Sodium 148 mEq/L (136-145) H 09/30/18 04:45 Potassium 6.0 mEq/L (3.5-5.1) H 09/25/18 15:02 Chloride 108 mEq/L (98-107) H 09/29/18 03:25 Carbon Dioxide 37 mEq/L (23-29) H 09/30/18 04:45 BUN 37 mg/dL (8-23) H 09/30/18 04:45 Creatinine 1.38 mg/dL (0.70-1.30) H 09/28/18 05:00 Est GFR (Non-Af Amer) 58 (> 60) L 09/29/18 03:25 BUN/Creatinine Ratio 40 (6-26) H 09/30/18 04:45 Glucose 153 mg/dL (70-105) H 09/30/18 04:45 POC Glucose 146 mg/dL (70-99) H 09/29/18 23:20 Calculated Osmolality 318 (280-300) H 09/30/18 04:45 Calcium 8.5 mg/dL (8.6-10.3) L 09/27/18 03:55 Venous Ioniz Calcium 1.12 mmol/L (1.15-1.35) L 09/27/18 04:13 Phosphorus 1.9 mg/dL (2.7-4.5) L 09/26/18 04:55 Magnesium 2.8 mg/dL (1.6-2.6) H 09/29/18 03:25 B-Natriuretic Peptide 126 pg/mL (Less than 100) H 09/25/18 15:02 Procalcitonin 0.34 ng/mL (0.00-0.15) H 09/26/18 08:25 Staphylococcus sp PCR DETECTED (Not Detect) A 09/25/18 18:05 - Microbiology Findings Microbiology Findings: Microbiology, Last 48 Hours 09/26/18 10:28 Sputum Culture - Preliminary Sputum 09/25/18 18:05 Blood Culture - Preliminary Peripheral Venipuncture Gram Positive Cocci - Clinical Findings Intake & Output: Intake & Output 09/29/18 09/29/18 09/30/18 15:59 23:59 07:59 Intake Total 200 / 814 234 / 814 300 / 300 Output Total 150 / 1000 450 / 1000 800 / 800 Balance 50 / -186 -216 / -186 -500 / -500 Weight 56.3 kg - VTE Documentation of Mechanical Device: Intermittent pneumatic compression device Consult Discharge Plan - Plan Referrals: Celio Lazaro MD [Partnered Physician] - (2 weeks) [facility]Primary Care Provider[facility] - Prescriptions: Aspirin Enteric Coated [Aspirin EC] 81 mg PO DAILY #30 tablet. Metoprolol [Lopressor] 12.5 mg PO BID #60 tablet predniSONE [PredniSONE] 10 mg PO TAPER #21 tablet <Fay Wu - Last Filed: 10/04/18 06:21> Date of Encounter: 09/30/18 Objective PUL Vital signs: Last Vital Signs Temp 97.6 F 09/30/18 07:20 Pulse 86 09/30/18 06:00 Resp 20 09/30/18 06:00 BP 143/86 09/30/18 06:00 Pulse Ox 99 09/30/18 06:00 Results - Laboratory Findings CBC and BMP: 10/03/18 04:30 10/03/18 04:30 ABG ABG pH 7.35 pH Units (7.32-7.45) 09/29/18 04:56 ABG pCO2 58 mmHg (35-45) H 09/29/18 04:56 ABG pO2 91 mmHg (85-104) 09/29/18 04:56 ABG O2 Saturation 96 % (95-98) 09/29/18 04:56 Abnormal lab findings: Abnormal lab results WBC 11.7 K/mcL (4.3-11.1) H 09/30/18 04:45 RBC 3.24 M/mcL (4.19-5.50) L 09/30/18 04:45 Hgb 10.5 g/dL (12.9-16.9) L 09/30/18 04:45 Hct 33.2 % (37.5-50.1) L 09/30/18 04:45 MCV 102.5 fL (83.0-100.0) H 09/30/18 04:45 MCHC 31.2 g/dL (31.6-35.5) L 09/29/18 03:25 Immature Gran % 5.4 % (0-4) H 09/29/18 03:25 Myelocytes % 2.0 % (0) H 09/30/18 04:45 Neutrophils # 11.2 K/mcL (1.6-8.9) H 09/30/18 04:45 Lymphocytes # 0.2 K/mcL (0.6-4.6) L 09/30/18 04:45 Monocytes # 1.7 K/mcL (0.0-1.3) H 09/25/18 15:02 ABG pH 7.31 pH Units (7.32-7.45) L 09/25/18 18:14 ABG pCO2 58 mmHg (35-45) H 09/29/18 04:56 ABG pO2 82 mmHg (85-104) L 09/28/18 04:35 ABG HCO3 32 mEq/L (21-27) H 09/29/18 04:56 ABG Total CO2 34 mEq/L (20-26) H 09/29/18 04:56 ABG O2 Saturation 99 % (95-98) H 09/25/18 21:46 ABG Base Excess 5 mEq/L (-2 to 3) H 09/29/18 04:56 Sodium 148 mEq/L (136-145) H 09/30/18 04:45 Potassium 6.0 mEq/L (3.5-5.1) H 09/25/18 15:02 Chloride 108 mEq/L (98-107) H 09/29/18 03:25 Carbon Dioxide 37 mEq/L (23-29) H 09/30/18 04:45 BUN 37 mg/dL (8-23) H 09/30/18 04:45 Creatinine 1.38 mg/dL (0.70-1.30) H 09/28/18 05:00 Est GFR (Non-Af Amer) 58 (> 60) L 09/29/18 03:25 BUN/Creatinine Ratio 40 (6-26) H 09/30/18 04:45 Glucose 153 mg/dL (70-105) H 09/30/18 04:45 POC Glucose 146 mg/dL (70-99) H 09/29/18 23:20 Calculated Osmolality 318 (280-300) H 09/30/18 04:45 Calcium 8.5 mg/dL (8.6-10.3) L 09/27/18 03:55 Venous Ioniz Calcium 1.12 mmol/L (1.15-1.35) L 09/27/18 04:13 Phosphorus 1.9 mg/dL (2.7-4.5) L 09/26/18 04:55 Magnesium 2.8 mg/dL (1.6-2.6) H 09/29/18 03:25 B-Natriuretic Peptide 126 pg/mL (Less than 100) H 09/25/18 15:02 Procalcitonin 0.34 ng/mL (0.00-0.15) H 09/26/18 08:25 Staphylococcus sp PCR DETECTED (Not Detect) A 09/25/18 18:05 - Microbiology Findings Microbiology Findings: Microbiology, Last 48 Hours 09/25/18 18:05 Blood Culture - Preliminary Peripheral Venipuncture Gram Positive Cocci 09/26/18 10:28 Sputum Culture - Preliminary Sputum - Clinical Findings Intake & Output: Intake & Output 09/29/18 09/30/18 09/30/18 23:59 07:59 15:59 Intake Total 234 / 814 300 / 300 Output Total 450 / 1000 1350 / 1350 Balance -216 / -186 -1050 / -1050 Weight 56.3 kg - Attending Attestation I examined this patient and my medical decision-making was reviewed with the Resident Physician. I agree with the documented findings, disposition and treatment plan as described except to the extent set forth below. Patient seen and examined. Labs, radiology, chart personally reviewed. 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 We will try as much as possible to have light during daytime sleep and sleep at night. I am hoping this will help his delirium. Pulmonary: Acceptable oxygenation and ventilation and s/p recent extubation and CXR oredered. Taper systemic steroid especially with agitation. Cardiovascular: stable GI: Nutrition per dietary and GI prophylaxis per routine and need swallowing evaluation. Nutrition Heme: DVT prophylaxis per routine ID: Continue antibiotics and plan to de-escalation and wait for CXR. Renal; urine out put and renal function reviewed and start D5W. Patient is intravascularly volume depleted. Endorcine: blood glucose is monitored Lines: all lines checked and no evidence of infections Skin: skin care to prevent pressure ulcers per nursing routine care Dispo: Remain in ICU Code: Full. Prognosis. Guarded and I'm concern that his condition deteriorate.
[2018-09-30] MEDS ORDERED: Furosemide 20 MG/2 ML VIAL IVP ONE ×2 (08:59→09:01)
[2018-09-30] MEDS: MethylPREDNISolone 40 MG/ML VIAL IVP SCH ×2 (09:03→18:18)
[2018-09-30] MEDS: Chlorhexidine Rinse 15 ML MOUTHWASH MM SCH (09:04)
[2018-09-30] MEDS: Pantoprazole 40 MG VIAL IVP SCH (09:04)
[2018-09-30] MEDS: Budesonide/Formoterol 160/4.5 1 PUFF INH IH SCH ×2 (09:31→21:49)
[2018-09-30] MEDS ORDERED: D5% in 0.45% NACL 1,000 ML IVC SCH (10:45)
[2018-09-30] MEDS ORDERED: Haloperidol Lactate 5 MG/ML VIAL IVP PRN (11:45)
[2018-09-30] MEDS: D5% in Water 1,000 ML IVC SCH (12:07)
[2018-09-30] MEDS ORDERED: Bisacodyl 10 MG RECTAL SUPPOSITORY RC PRN (13:15)
--- NOTE | 2018-09-30 16:39 | Electrocardiograph Report ---
[address] [address] Test Date: 2018-09-28 Pat Name: Toan Higgins Department: 109 Room: [facility] Gender: M Property Management Coordinator: : 1940 Requested By: Lizz Chiu Order Number: [id number] Reading MD: Tyson Zamarripa Measurements Intervals [place] Rate: 112 P: 81 NM: 152 QRS: 36 QRSD: 134 T: 217 QT: 353 QTc: 419 Interpretive Statements SINUS TACHYCARDIA LEFT BUNDLE BRANCH BLOCK Electronically Signed On 09-30-2018 16:37:46 EDT by Tyson Zamarripa
[2018-10-01] MEDS: D5% in Water 1,000 ML IVC SCH (00:57)
[2018-10-01] MEDS: Dexmedetomidine HCl 400 MCG/100 ML MLS IVC SCH (03:31)
[2018-10-01] MEDS: Ipratropium/Albuterol Neb 3 ML IH SCH ×4 (03:53→22:49)
[2018-10-01 04:48] LABS: Basophils # 0.1 K/mcL (0.0-0.2); Basophils % 0.6 %; Eosinophils % 0.1 %; Hematocrit 33.9 % (37.5-50.1); Hemoglobin 11.1 g/dL (12.9-16.9); Immature Granulocytes % 4.6 % (0-4); Lymphocytes # 1.2 K/mcL (0.6-4.6); Lymphocytes % 6.3 %; Mean Corpuscular HGB Conc 32.7 g/dL (31.6-35.5); Mean Corpuscular Hemoglobin 32.5 pg (28.0-33.3); Mean Corpuscular Volume 99.1 fL (83.0-100.0); Mean Platelet Volume 10.2 fL (9.4-12.4); Monocytes # 1.4 K/mcL (0.0-1.3); Monocytes % 7.7 %; Neutrophils # 14.7 K/mcL (1.6-8.9); Platelet Count 207 K/mcL (140-400); Red Blood Count 3.42 M/mcL (4.19-5.50); Red Cell Distribution Width 13.2 % (11.5-14.5); Segmented Neutrophils % 80.7 %
[2018-10-01 04:53] LABS: White Blood Count 18.2 K/mcL (4.3-11.1)
[2018-10-01 05:10] LABS: BUN/Creatinine Ratio 34 (6-26); Blood Urea Nitrogen 25 mg/dL (8-23); Calcium 8.9 mg/dL (8.6-10.3); Carbon Dioxide 38 mEq/L (23-29); Chloride 94 mEq/L (98-107); Glucose 115 mg/dL (70-105); Magnesium 1.9 mg/dL (1.6-2.6); Osmolality,Calculated 291 (280-300); Phosphorous 2.1 mg/dL (2.7-4.5); Potassium 3.5 mEq/L (3.5-5.1); Sodium 138 mEq/L (136-145); eGFR For African Americans > 60 (> 60); eGFR For Non-African Americans > 60 (> 60)
[2018-10-01] MEDS: Insulin LISPRO 300 UNITS/3 ML VIAL SQ SCH (05:40)
[2018-10-01] MEDS: MethylPREDNISolone 40 MG/ML VIAL IVP SCH (05:40)
[2018-10-01] MEDS: *HR* Heparin 5,000 UNIT/ML VIAL SQ SCH ×3 (05:40→21:42)
--- NOTE | 2018-10-01 06:48 | Pulmonology Progress Note ---
<TjRaoulPeyton R - Last Filed: 10/01/18 13:02> Date of Encounter: 10/01/18 Time of Encounter: 06:48 Assessment and Plan (1) Acute respiratory failure with hypoxia and hypercapnia Status: Acute Patient was initially responsive to BiPAP in the emergency department but subsequently declined in respiratory function requiring intubation, family confirmed that he is full code Post extubation day 2 Was on BiPAP and though intermittently agitated, he continued to do well off the ventilator Blood and sputum cultures, sputum shows normal oral hortencia no growth in blood cu ltures thus far Continue with scheduled duonebs, Symbicort IV steroids decreased to 40mg Solu-medrol q12H Zosyn DC'd WBC increased today to 18.2 - pt remains afebrile and continues to have good oxygen saturations, therefore we will hold Zosyn at this time DC Haldol Regular diet ordered following normal swallow study CXR ordered due to crackles heard bilaterally - 20mg IV Lasix as given CXR did not show any new consolidations (2) COPD with acute exacerbation Status: Acute Continuing with bronchodilators and steroids as above (3) Acute kidney injury Status: Acute Resolved Cre now normal at 0.73 (4) Hypernatremia Status: Acute Na at 138 today D5W will be stopped as the patient can eat and sodium has normalized (5) Hypotension Status: Acute No longer requiring vasopressors Hemodynamically stable Qualifiers: Hypotension type: unspecified hypotension type Qualified Code(s): I95.9 - Hypotension, unspecified (6) Urinary retention Status: Acute Dr. Muñoz placed urinary catheter for urinary retention on 09/26 Adequate urinary outflow from catheter since placement Recommends removal of catheter s/p extubation Pt now extubated but continues to require sedation for delerium Dennis removed prior to transfer to (7) Hyperglycemia Status: Acute Potentially related to steroids Hemoglobin A1c 5.6 Low dose SSI with q6H Accu-cheks (8) DVT prophylaxis Status: Acute SQ Heparin Subjective Interval history: Pt is much less agitated today and states he is hungry and ready to eat. He passed his swallow eval yesterday and lázaro have a regular diet ordered. We will continue to decrease his precedex and other sedating medications and plan for transfer of the patient out of the ICU today. CXR yesterday did not demonstrate aspiration pneumonia and shows no acute abnormalities. 1122 - spoke with hospitalist admitter Dr. Osuna who was made aware of this patient's transfer to . Objective PUL Vital signs: Last Vital Signs Temp 97.1 F L 10/01/18 03:46 Pulse 103 10/01/18 06:00 Resp 24 10/01/18 06:00 BP 138/92 10/01/18 06:00 Pulse Ox 95 10/01/18 06:00 General appearance: no acute distress, alert Eyes: nonicteric ENT: oropharynx moist Effort: normal Auscultation: bilateral: diminished breath sounds, wheezes Cardiovascular: regular rate and rhythm Gastrointestinal: soft, non-tender, non-distended Integumentary: normal Extremities: no edema, pink and warm normal mental status, non-focal exam mood appropriate, affect normal Results - Laboratory Findings CBC and BMP: 10/01/18 04:16 10/01/18 04:16 ABG ABG pH 7.35 pH Units (7.32-7.45) 09/29/18 04:56 ABG pCO2 58 mmHg (35-45) H 09/29/18 04:56 ABG pO2 91 mmHg (85-104) 09/29/18 04:56 ABG O2 Saturation 96 % (95-98) 09/29/18 04:56 Abnormal lab findings: Abnormal lab results WBC 18.2 K/mcL (4.3-11.1) H D 10/01/18 04:16 RBC 3.42 M/mcL (4.19-5.50) L 10/01/18 04:16 Hgb 11.1 g/dL (12.9-16.9) L 10/01/18 04:16 Hct 33.9 % (37.5-50.1) L 10/01/18 04:16 MCV 102.5 fL (83.0-100.0) H 09/30/18 04:45 MCHC 31.2 g/dL (31.6-35.5) L 09/29/18 03:25 Immature Gran % 4.6 % (0-4) H 10/01/18 04:16 Myelocytes % 2.0 % (0) H 09/30/18 04:45 Neutrophils # 14.7 K/mcL (1.6-8.9) H 10/01/18 04:16 Lymphocytes # 0.2 K/mcL (0.6-4.6) L 09/30/18 04:45 Monocytes # 1.4 K/mcL (0.0-1.3) H 10/01/18 04:16 ABG pH 7.31 pH Units (7.32-7.45) L 09/25/18 18:14 ABG pCO2 58 mmHg (35-45) H 09/29/18 04:56 ABG pO2 82 mmHg (85-104) L 09/28/18 04:35 ABG HCO3 32 mEq/L (21-27) H 09/29/18 04:56 ABG Total CO2 34 mEq/L (20-26) H 09/29/18 04:56 ABG O2 Saturation 99 % (95-98) H 09/25/18 21:46 ABG Base Excess 5 mEq/L (-2 to 3) H 09/29/18 04:56 Sodium 148 mEq/L (136-145) H 09/30/18 04:45 Potassium 6.0 mEq/L (3.5-5.1) H 09/25/18 15:02 Chloride 94 mEq/L (98-107) L 10/01/18 04:16 Carbon Dioxide 38 mEq/L (23-29) H 10/01/18 04:16 BUN 25 mg/dL (8-23) H 10/01/18 04:16 Creatinine 1.38 mg/dL (0.70-1.30) H 09/28/18 05:00 Est GFR (Non-Af Amer) 58 (> 60) L 09/29/18 03:25 BUN/Creatinine Ratio 34 (6-26) H 10/01/18 04:16 Glucose 115 mg/dL (70-105) H 10/01/18 04:16 POC Glucose 146 mg/dL (70-99) H 09/30/18 23:08 Calculated Osmolality 318 (280-300) H 09/30/18 04:45 Calcium 8.5 mg/dL (8.6-10.3) L 09/27/18 03:55 Venous Ioniz Calcium 1.12 mmol/L (1.15-1.35) L 09/27/18 04:13 Phosphorus 2.1 mg/dL (2.7-4.5) L 10/01/18 04:16 Magnesium 2.8 mg/dL (1.6-2.6) H 09/29/18 03:25 B-Natriuretic Peptide 126 pg/mL (Less than 100) H 09/25/18 15:02 Procalcitonin 0.34 ng/mL (0.00-0.15) H 09/26/18 08:25 Staphylococcus sp PCR DETECTED (Not Detect) A 09/25/18 18:05 - Microbiology Findings Microbiology Findings: Microbiology, Last 48 Hours 09/25/18 18:10 Blood Culture - Final Peripheral Venipuncture No growth. Final report. 09/25/18 18:05 Blood Culture - Preliminary Peripheral Venipuncture Gram Positive Cocci 09/26/18 10:28 Sputum Culture - Preliminary Sputum - Clinical Findings Intake & Output: Intake & Output 09/30/18 09/30/18 10/01/18 15:59 23:59 07:59 Intake Total 200 / 500 1100 / 1100 Output Total 3000 / 4700 350 / 4700 725 / 725 Balance -2800 / -4200 -350 / -4200 375 / 375 Weight 51.4 kg - VTE Documentation of Mechanical Device: Intermittent pneumatic compression device Consult Discharge Plan - Plan Referrals: Celio Lazaro MD [Partnered Physician] - (2 weeks) [facility] - Prescriptions: Aspirin Enteric Coated [Aspirin EC] 81 mg PO DAILY #30 tablet. Metoprolol [Lopressor] 12.5 mg PO BID #60 tablet predniSONE [PredniSONE] 10 mg PO TAPER #21 tablet <Fay Wu - Last Filed: 10/04/18 06:41> Date of Encounter: 10/01/18 Objective PUL Vital signs: Last Vital Signs Temp 98.3 F 10/03/18 15:01 Pulse 99 10/03/18 15:01 Resp 20 10/03/18 15:50 BP 112/79 10/03/18 15:01 Pulse Ox 96 10/03/18 15:50 Results - Laboratory Findings CBC and BMP: 10/03/18 04:30 10/03/18 04:30 ABG ABG pH 7.48 pH Units (7.32-7.45) H 10/03/18 17:06 ABG pCO2 52 mmHg (35-45) H 10/03/18 17:06 ABG pO2 69 mmHg (85-104) L 10/03/18 17:06 ABG O2 Saturation 94 % (95-98) L 10/03/18 17:06 Abnormal lab findings: Abnormal lab results WBC 15.1 K/mcL (4.3-11.1) H 10/03/18 04:30 RBC 3.25 M/mcL (4.19-5.50) L 10/03/18 04:30 Hgb 10.4 g/dL (12.9-16.9) L 10/03/18 04:30 Hct 32.0 % (37.5-50.1) L 10/03/18 04:30 MCV 102.5 fL (83.0-100.0) H 09/30/18 04:45 MCHC 31.2 g/dL (31.6-35.5) L 09/29/18 03:25 Immature Gran % 4.6 % (0-4) H 10/01/18 04:16 Band Neutrophils % 6.0 % (0-4) H 10/03/18 04:30 Metamyelocytes % 2.0 % (0) H 10/02/18 04:10 Myelocytes % 2.0 % (0) H 10/03/18 04:30 Neutrophils # 11.5 K/mcL (1.6-8.9) H 10/03/18 04:30 Lymphocytes # 0.2 K/mcL (0.6-4.6) L 09/30/18 04:45 Monocytes # 2.1 K/mcL (0.0-1.3) H 10/03/18 04:30 Reactive Lymphocytes Present (Not Present) A 10/03/18 04:30 Hypochromasia Present (Not Present) A 10/02/18 04:10 ABG pH 7.48 pH Units (7.32-7.45) H 10/03/18 17:06 ABG pCO2 52 mmHg (35-45) H 10/03/18 17:06 ABG pO2 69 mmHg (85-104) L 10/03/18 17:06 ABG HCO3 39 mEq/L (21-27) H 10/03/18 17:06 ABG Total CO2 41 mEq/L (20-26) H 10/03/18 17:06 ABG O2 Saturation 94 % (95-98) L 10/03/18 17:06 ABG Base Excess 14 mEq/L (-2 to 3) H 10/03/18 17:06 Sodium 148 mEq/L (136-145) H 09/30/18 04:45 Potassium 3.4 mEq/L (3.5-5.1) L 10/03/18 04:30 Chloride 93 mEq/L (98-107) L 10/03/18 04:30 Carbon Dioxide 40 mEq/L (23-29) H* 10/03/18 04:30 BUN 25 mg/dL (8-23) H 10/01/18 04:16 Creatinine 1.38 mg/dL (0.70-1.30) H 09/28/18 05:00 Est GFR (Non-Af Amer) 58 (> 60) L 09/29/18 03:25 BUN/Creatinine Ratio 29 (6-26) H 10/02/18 04:10 Glucose 115 mg/dL (70-105) H 10/01/18 04:16 POC Glucose 189 mg/dL (70-99) H 10/03/18 12:09 Calculated Osmolality 318 (280-300) H 09/30/18 04:45 Calcium 8.5 mg/dL (8.6-10.3) L 09/27/18 03:55 Venous Ioniz Calcium 1.12 mmol/L (1.15-1.35) L 09/27/18 04:13 Phosphorus 2.1 mg/dL (2.7-4.5) L 10/01/18 04:16 Magnesium 2.8 mg/dL (1.6-2.6) H 09/29/18 03:25 B-Natriuretic Peptide 126 pg/mL (Less than 100) H 09/25/18 15:02 Procalcitonin 0.34 ng/mL (0.00-0.15) H 09/26/18 08:25 Staphylococcus sp PCR DETECTED (Not Detect) A 09/25/18 18:05 - Microbiology Findings Microbiology Findings: Microbiology, Last 48 Hours 09/25/18 18:05 Blood Culture - Preliminary Peripheral Venipuncture Staphyloco hominis ssp hominis 10/02/18 13:21 Blood Culture - Preliminary Peripheral Venipuncture Culture is incubating and being continuously monitored for growth. Final report to follow. 10/02/18 13:21 Blood Culture - Preliminary Peripheral Venipuncture Culture is incubating and being continuously monitored for growth. Final report to follow. 09/26/18 10:28 Sputum Culture - Final Sputum Sphingomonas paucimobilis - Clinical Findings Intake & Output: Intake & Output 10/03/18 10/03/18 10/04/18 15:59 23:59 07:59 Intake Total 480 / 770 240 / 770 Output Total 0 / 555 Balance 480 / 215 240 / 215 - Attending Attestation This document patient was done on 10/04/2018, however patient was seen on 10/01/2018 I examined this patient and my medical decision-making was reviewed with the Resident Physician. I agree with the documented findings, disposition and treatment plan as described except to the extent set forth below. Patient seen and examined. Labs, radiology, chart personally reviewed. Agree with resident's history and physical, assessment, plan with following comments: PARTS IDENTIFICATION TECHNICIAN: Patient follows commands, patient is much more responsive today and feels much better. Pulmonary: Acceptable oxygenation and ventilation. Patient is not requiring any more noninvasive ventilation. Continue treatment for COPD. Weaning cough steroid and tapering it off with continuation of bronchodilators. Patient to be transferred to the floor and he will need outpatient workup for COPD and he can follow-up in the clinic. Cardiovascular: stable GI: Nutrition per dietary and GI prophylaxis per routine Heme: DVT prophylaxis per routine ID: Continue antibiotics and plan to de-escalation Renal; urine out put and renal function reviewed Endorcine: blood glucose is monitored Lines: all lines checked and no evidence of infections Skin: skin care to prevent pressure ulcers per nursing routine care Dispo: Transferred to the floor Code: Full. Prognosis. Guarded
[2018-10-01] MEDS ORDERED: D5% in Water 1,000 ML IVC PRN (07:39)
[2018-10-01] MEDS ORDERED: *HR* Dextrose 50 % in Water (Syg) 50 ML SYRINGE IVP PRN (07:39)
[2018-10-01] MEDS ORDERED: Naloxone 0.4 MG/ML INJ IVP PRN (07:39)
[2018-10-01] MEDS ORDERED: Loratadine 10 MG TABLET PO PRN (07:39)
[2018-10-01] MEDS ORDERED: Benzonatate 100 MG CAPSULE PO PRN (07:39)
[2018-10-01] MEDS ORDERED: Levalbuterol Neb 1.25 MG/3 ML IH SCH (07:39)
[2018-10-01] MEDS ORDERED: Bisacodyl 10 MG RECTAL SUPPOSITORY RC PRN (07:39)
[2018-10-01] MEDS ORDERED: Ipratropium Neb 0.5 MG NEBULIZER IH SCH (08:00)
[2018-10-01] MEDS ORDERED: Pantoprazole 40 MG VIAL IVP SCH (09:00)
[2018-10-01] MEDS: Multivit/Ca/Min/Fe/FA 1 TAB TABLET PO SCH (09:17)
[2018-10-01] MEDS: Nicotine 14 MG PATCH.TD24 TD SCH (09:17)
[2018-10-01] MEDS: Haloperidol Lactate 5 MG/ML VIAL IVP PRN ×2 (09:18→18:41)
[2018-10-01] MEDS: Budesonide/Formoterol 160/4.5 1 PUFF INH IH SCH ×2 (09:25→20:32)
[2018-10-01] MEDS ORDERED: Budesonide/Formoterol 160/4.5 1 PUFF INH IH SCH (10:00)
[2018-10-01] MEDS ORDERED: Insulin LISPRO 300 UNITS/3 ML VIAL SQ SCH ×2 (11:30→21:00)
[2018-10-01] MEDS ORDERED: MethylPREDNISolone 40 MG/ML VIAL IVP SCH (18:00)
[2018-10-01] MEDS ORDERED: *HR* Metoprolol 5 MG/5 ML VIAL IVP PRN (18:38)
[2018-10-02] MEDS: Ipratropium/Albuterol Neb 3 ML IH SCH ×4 (04:16→21:35)
[2018-10-02 04:41] LABS: Hematocrit 33.6 % (37.5-50.1); Hemoglobin 11.1 g/dL (12.9-16.9); Mean Corpuscular Hemoglobin 32.5 pg (28.0-33.3); Mean Corpuscular Volume 98.2 fL (83.0-100.0); Mean Platelet Volume 10.5 fL (9.4-12.4); Platelet Count 211 K/mcL (140-400); Red Blood Count 3.42 M/mcL (4.19-5.50); Red Cell Distribution Width 13.1 % (11.5-14.5); White Blood Count 14.4 K/mcL (4.3-11.1)
[2018-10-02 05:09] LABS: BUN/Creatinine Ratio 29 (6-26); Blood Urea Nitrogen 23 mg/dL (8-23); Calcium 9.1 mg/dL (8.6-10.3); Carbon Dioxide 40 mEq/L (23-29); Chloride 92 mEq/L (98-107); Glucose 91 mg/dL (70-105); Magnesium 1.8 mg/dL (1.6-2.6); Osmolality,Calculated 287 (280-300); Potassium 3.6 mEq/L (3.5-5.1); Sodium 137 mEq/L (136-145); eGFR For African Americans > 60 (> 60); eGFR For Non-African Americans > 60 (> 60)
[2018-10-02 05:23] LABS: Lymphocytes # 1.4 K/mcL (0.6-4.6); Monocytes # 0.3 K/mcL (0.0-1.3); Neutrophils # 12.1 K/mcL (1.6-8.9); Platelet Estimate Normal (Normal)
[2018-10-02 05:24] LABS: Hypochromasia Present (Not Present)
[2018-10-02] MEDS: *HR* Heparin 5,000 UNIT/ML VIAL SQ SCH ×3 (06:09→21:47)
--- NOTE | 2018-10-02 09:14 | Electrocardiograph Report ---
[address] [address] Test Date: 2018-10-01 Pat Name: Toan Higgins Department: 111 Room: 2NE17 Gender: M Compliance Nurse: Raw : 1940 Requested By: Abdoul Treviño Order Number: [id number] Reading MD: Jonn Watkins Measurements Intervals [place] Rate: 118 P: 80 [place]: 148 QRS: 42 QRSD: 142 T: 179 QT: 349 QTc: 419 Interpretive Statements SINUS TACHYCARDIA LEFT BUNDLE BRANCH BLOCK Electronically Signed On 10-02-2018 9:13:12 EDT by Jonn Watkins
[2018-10-02] MEDS: Nicotine 14 MG PATCH.TD24 TD SCH (09:22)
[2018-10-02] MEDS: predniSONE 20 MG TABLET PO SCH (09:22)
[2018-10-02] MEDS: Multivit/Ca/Min/Fe/FA 1 TAB TABLET PO SCH (09:22)
--- NOTE | 2018-10-02 10:08 | Internal Med Progress Note ---
Hospitalist Progress Note - Encounter Date of Encounter: 10/02/18 Time of Encounter: 10:09 - Subjective Interval History: Patient was seen and examined. No acute events. Noted to have ST depressions on the monitor. He is transferred out of the ICU after an admission there for about a week where he was intubated for COPD exacerbation and extubated. He is on about 2-3 L now nasal cannula oxygen which is chronic needs. Also was treated for hyperkalemia and a K which have resolved now. Was put on IV antibiotics for some time and that has been stopped. He is afebrile. - Exam Vitals: Temp Pulse Resp BP Pulse Ox 99.5 F 108 16 114/78 93 10/02/18 06:53 10/02/18 06:53 10/02/18 06:53 10/02/18 06:53 10/02/18 06:53 Exam: GEN: NAD CVS: RRR. S1, S2, No m/r/g RESP: diminished. ABD: Soft, NT, ND, +BS EXT: No edema. 2+ DP. No rashes NEURO: Nonfocal - Assessment and Plan (1) Acute respiratory failure with hypoxia and hypercapnia Current Visit: Yes Status: Acute Assessment and Plan: Treat as below (2) COPD with acute exacerbation Current Visit: Yes Status: Acute Assessment and Plan: Continue IV steroids every 12 hours IV for now. Switch to oral tomorrow. Continue nebs. Continue O2 support. (3) Abnormal EKG Current Visit: Yes Status: Acute Assessment and Plan: Noted to have abnormal rhythm on the monitor. EKG showed LBBB unclear how old. Has ST depression in inferior leads. will ask cardiology to see (4) Acute kidney injury Current Visit: Yes Status: Acute Assessment and Plan: Resolved (5) Hypotension Current Visit: Yes Status: Acute Assessment and Plan: Resolved (6) Urinary retention Current Visit: Yes Status: Acute Assessment and Plan: Resolved (7) Hyperglycemia Current Visit: Yes Status: Acute Assessment and Plan: Most likely due to steroids. Better now. Will monitor - Time Spent with Patient Total time spent is greater than 50% in coordination of care (as documented) at patient's floor/unit and/or counseling patient: Internal Medicine: Result - Labs CBC & Chem 7: 10/02/18 04:10 10/02/18 04:10 Labs: Short CBC 10/02/18 Range/Units 04:10 WBC 14.4 H (4.3-11.1) K/mcL Hgb 11.1 L (12.9-16.9) g/dL Hct 33.6 L (37.5-50.1) % Plt Count 211 (140-400) K/mcL Neutrophils # 12.1 H (1.6-8.9) K/mcL BMP 10/02/18 04:10 Sodium 137 Potassium 3.6 Chloride 92 L Carbon Dioxide 40 H* BUN 23 Creatinine 0.80 Glucose 91 Calcium 9.1 - ABG Interpretation ABG results: ABG ABG pH 7.35 pH Units (7.32-7.45) 09/29/18 04:56 ABG pCO2 58 mmHg (35-45) H 09/29/18 04:56 ABG pO2 91 mmHg (85-104) 09/29/18 04:56 ABG O2 Saturation 96 % (95-98) 09/29/18 04:56 - VTE Documentation of Mechanical Device: Intermittent pneumatic compression device Consult Discharge Plan - Plan [facility] Provider[facility] - (5) Hypotension Qualifiers: Hypotension type: unspecified hypotension type Qualified Code(s): I95.9 - Hypotension, unspecified
[2018-10-02] MEDS: Budesonide/Formoterol 160/4.5 1 PUFF INH IH SCH ×2 (10:43→21:35)
--- NOTE | 2018-10-02 14:25 | Cardiology Consult Note ---
<Sandra Hamm - Last Filed: 10/02/18 14:53> Date of Encounter: 10/02/18 Time of Encounter: 14:00 Assessment and Plan (1) Left bundle branch block Status: Acute Per cardiology: -LBBB noted on ECG, unknown chronicity. No previous ECG to review. -Denies chest pain. -Troponins negative x3. -TTE with LVEF 50-55%, mild diastolic dysfunction, mild RV hypokinesis, global hypokineiss. -Admitted with acute respiratory failure, COPD exacerbation. -Recommend outpatient stress test. (2) Sinus tachycardia Status: Acute Per cardiology: -Sinus tachycardia in the setting of respiratory failure and COPD exacerbation. -ON nebulizers. -Anticipate HR will improve as clinical condition improves. Discussion w patient/family: The assessment and plan as outlined above was discussed with the patient who expressed understanding and agreement. All questions were answered. Thank you for involving us in the care of your patient. Please call with any questions. Discussed and reviewed with . History of Present Illness Consult date: 10/02/18 Requesting physician: Laureano Ortiz Consult reason: abnormal ECG Chief complaint: respiratory failure History of present illness: Mr. Higgins is a 77 year old male with a relevant past medical history of GERD and COPD. Patient is confused on exam today. History was obtained from previous documentation. Per records, patient was brought to [facility] due to altered level of consciousness. Patient was found to have acute respiratory failure. Patient was subsequently intubated. Cardiology has been consulted today for abnormal ECG. Patient denies chest pain. Reports previous stress test >15 years ago, however unable to tell me where he had stress completed. Patient is alert and oriented to person and place. However, patient is confused regarding happenings during hospital stay. Past Med Surg Social Fam HX - Past Medical History Attestation: Yes The following information was validated with the patient. Source: patient Medical history: COPD, GERD Additional medical history: PER EMS AND FAMILY Psychiatric history: other - Past Surgical History Additional surgical history: UANBLE TO OBATIN AT THIS TIME - Social History Smoking Status: Current every day smoker - Family History Father Name: \ Hx Family Psychosocial Disorders: No (Unknown secondary to no family present) Hx Family Medical Disorders: No (Unable to obtain family history secondary to patient's intubated status) Medications and Allergies Albuterol Sulfate [Proventil Inhaler] 0 puff IH Q4HR PRN 09/25/18 [History] Alendronate Sodium [Fosamax] 70 mg PO QWEEK 09/25/18 [History] Benzonatate [Tessalon] 100 mg PO BID PRN 09/25/18 [History] Budesonide/Formoterol 160/4.5 [Symbicort 160/4.5] 2 puff IH BIDR 09/25/18 [History] Calcium Carbonate 650 mg PO DAILY 09/25/18 [History] Ipratropium Neb [Atrovent Neb] 0.5 mg IH Q4HR 09/25/18 [History] Levalbuterol Neb [Xopenex Neb] 1.25 mg IH Q4H 09/25/18 [History] Loratadine [Allergy Relief] 10 mg PO DAILY PRN 09/25/18 [History] Multivitamin [Daily Multiple Vitamin] 1 each PO DAILY 09/25/18 [History] Nicotine Patch [Nicoderm] 14 mg TD DAILY 09/25/18 [History] Omeprazole [PriLOSEC] 20 mg PO DAILY 09/25/18 [History] Sennosides/Docusate Sodium [Senna-Docusate Sodium Tablet] 2 each PO HS 09/25/18 [History] Aspirin Enteric Coated [Aspirin EC] 81 mg PO DAILY #30 tablet. 10/03/18 [Rx] Metoprolol [Lopressor] 12.5 mg PO BID #60 tablet 10/03/18 [Rx] predniSONE [PredniSONE] 10 mg PO TAPER #21 tablet 10/03/18 [Rx] Allergy/AdvReac Type Severity Reaction Status Date / Time No Known Allergies Allergy Verified 09/25/18 16:42 All Systems Review: The remainder of the systems were reviewed and are negative - Cardiovascular Cardiovascular: as per HPI, dyspnea at rest, dyspnea on exertion Physical Examination Vital Signs, Last 4 Hours Temp Pulse Resp BP Pulse Ox 10/02/18 11:59 99.7 F H 108 14 132/90 90 General: Conversant, Other (Mild conversational dyspnea noted. ) HEENT: Atraumatic, Normocephaly, Mucus Membranes Moist Neck: No JVD, Normal carotid pulses Cardiac: Reg Rate and Rhythm, Normal S1 and S2, No Murmur Lungs: Other (Minimal air movement noted on exam. ) Neuro: Alert and responsive, No focal deficits noted Abdomen: Soft, Non-Tender Skin: No rashes noted on visualized skin Musculoskeletal: No Chest Wall Tenderness, Other (Tremors noted. ) Extremities: No Clubbing, No Cyanosis, No Edema, Normal Pulses Results 10/02/18 04:10 10/02/18 04:10 Lab Results Active Medications Albuterol Sulfate (Proventil Inhaler) 2 puff IH Q4HR PRN PRN Reason: Shortness Of Breath Stop: 04/02/19 07:40 Albuterol/Ipratropium (Duoneb) 3 ml IH [id number] [facility] Stop: 03/28/19 22:01 Last Admin: 10/02/18 10:43 Dose: 3 ml Documented by: Benzonatate (Tessalon) 100 mg PO BID PRN PRN Reason: Cough Stop: 04/02/19 07:40 Bisacodyl (Dulcolax) 10 mg RC DAILY PRN PRN Reason: Constipation Stop: 04/01/19 13:16 Budesonide/Formoterol Fumarate (Symbicort) 2 puff IH BIDR [facility] Stop: 04/02/19 10:01 Last Admin: 10/02/18 10:43 Dose: 2 puff Documented by: Calcium Carbonate (Tums) 500 mg PO DAILY [facility] Stop: 04/02/19 09:01 Last Admin: 10/02/18 09:22 Dose: 500 mg Documented by: Dextrose/Water (Dextrose 50% (Syg)) 25 ml IVP AD PRN PRN Reason: Hypoglycemia Stop: 03/28/19 08:25 Glucagon (Glucagen) 1 mg IM ONCE PRN PRN Reason: Hypoglycemia Stop: 03/28/19 08:25 Haloperidol Lactate (Haldol) 5 mg IVP Q8H PRN PRN Reason: agitation Stop: 03/29/19 12:01 Last Admin: 10/01/18 18:41 Dose: 5 mg Documented by: Heparin Sodium (Porcine) (Heparin) 5,000 unit SQ Q8HCO [facility] Stop: 03/29/19 14:01 Last Admin: 10/02/18 06:09 Dose: 5,000 unit Documented by: Dextrose (Dextrose 5%) 1,000 mls @ 100 mls/hr IVC .Q10H PRN PRN Reason: HYPOGLYCEMIA Stop: 03/28/19 08:25 Potassium Chloride (Potassium Chloride 10 Meq/100ml) 10 meq in 100 mls @ 100 mls/hr IVPB Q1H PRN PRN Reason: Potassium less than 4 Stop: 03/27/19 18:40 Loratadine (Claritin) 10 mg PO DAILY PRN; Protocol PRN Reason: Allergy Symptoms Stop: 04/02/19 07:40 Metoprolol Tartrate (Lopressor) 2.5 mg IVP Q6HR PRN PRN Reason: Tachyarrhythmias Stop: 04/02/19 18:39 Last Admin: 10/01/18 21:42 Dose: 2.5 mg Documented by: Multivitamins/Calcium (Thera M Plus) 1 tab PO DAILY [facility] Stop: 04/02/19 09:01 Last Admin: 10/02/18 09:22 Dose: 1 tab Documented by: Naloxone HCl (Narcan) 0.4 mg IVP Q2MPRN PRN PRN Reason: SEE COMMENTS Stop: 03/27/19 20:06 Nicotine (Nicoderm) 14 mg TD DAILY [facility]; Protocol Stop: 04/02/19 09:01 Last Admin: 10/02/18 09:22 Dose: 14 mg Documented by: Omeprazole (Prilosec) 20 mg PO DAILY@0730 [facility]; Protocol Stop: 04/02/19 09:01 Last Admin: 10/02/18 09:21 Dose: 20 mg Documented by: Prednisone (Prednisone) 40 mg PO DAILY [facility] Stop: 04/03/19 09:01 Last Admin: 10/02/18 09:22 Dose: 40 mg Documented by: Laboratory Tests 09/25/18 09/26/18 09/26/18 15:02 11:20 17:00 WBC Hgb Creatinine Troponin I < 0.03 < 0.03 < 0.03 10/02/18 10/02/18 04:10 04:10 WBC 14.4 H Hgb 11.1 L Creatinine 0.80 Troponin I - Imaging and Cardiology Chest Xray: report reviewed Echo: report reviewed - EKG Interpretation EKG results cardiology: personally reviewed (ECG with ST, HR 107, LBBB noted.), other (Telemetry reviewed with average HR previous 12 hours noted to be 109, ST. PVCs, PACs noted.) Consult Discharge Plan - Plan Referrals: Celio Lazaro MD [Partnered Physician] - (2 weeks) [facility] - Prescriptions: Aspirin Enteric Coated [Aspirin EC] 81 mg PO DAILY #30 tablet. Metoprolol [Lopressor] 12.5 mg PO BID #60 tablet predniSONE [PredniSONE] 10 mg PO TAPER #21 tablet <Garfield Hernandez - Last Filed: 10/03/18 21:30> Date of Encounter: 10/03/18 - Attending Attestation I have personally performed a face to face evaluation on this patient. I have reviewed and agree with the documented findings and care plan as documented by the RETURNS CLERK. History and Exam by me shows: LBBB of unknown duration. No chest pain. Troponin negative x 3. No dynamic changes on EKG. Echo shows preserved EF. Recommend outpatient ischemic work up. Thanks, Garfield Hernandez MD FAC. Assessment and Plan Discussion w patient/family: The assessment and plan as outlined above was discussed with the patient and/or family members who expressed understanding and agreement. All questions were answered. Thank you for involving us in the care of your patient. Please call with any questions. History of Present Illness History of present illness: Mr. Higgins is a 77 year old male All Systems Review: The remainder of the systems were reviewed and are negative Results 10/03/18 04:30 10/03/18 04:30 Lab Results 10/03/18 10/03/18 04:30 04:30 WBC 15.1 H Hgb 10.4 L Hct 32.0 L Plt Count 201 Sodium 141 Potassium 3.4 L Chloride 93 L Carbon Dioxide 40 H* BUN 20 Creatinine 0.81 Glucose 91 Calcium 9.3 Magnesium 1.9
--- NOTE | 2018-10-02 20:31 | Electrocardiograph Report ---
[address] [address] Test Date: 2018-10-02 Pat Name: Toan Higgins Department: 111 Room: 2NE17 Gender: M Sales Product Manager: Mehreen : 1940 Requested By: Laureano Ortiz Order Number: [id number] Reading MD: Jonn Watkins Measurements Intervals [place] Rate: 107 P: 58 [place]: 124 QRS: 34 QRSD: 145 T: 114 QT: 370 QTc: 433 Interpretive Statements SINUS TACHYCARDIA LEFT BUNDLE BRANCH BLOCK Electronically Signed On 10-02-2018 20:29:49 EDT by Jonn Watkins
[2018-10-03] MEDS: Ipratropium/Albuterol Neb 3 ML IH SCH ×3 (03:29→15:50)
[2018-10-03 05:15] LABS: Hemoglobin 10.4 g/dL (12.9-16.9); Mean Corpuscular HGB Conc 32.5 g/dL (31.6-35.5); Mean Corpuscular Volume 98.5 fL (83.0-100.0); Mean Platelet Volume 10.7 fL (9.4-12.4); Platelet Count 201 K/mcL (140-400); Red Blood Count 3.25 M/mcL (4.19-5.50); Red Cell Distribution Width 13.1 % (11.5-14.5); White Blood Count 15.1 K/mcL (4.3-11.1)
[2018-10-03 05:43] LABS: BUN/Creatinine Ratio 25 (6-26); Blood Urea Nitrogen 20 mg/dL (8-23); Calcium 9.3 mg/dL (8.6-10.3); Carbon Dioxide 40 mEq/L (23-29); Chloride 93 mEq/L (98-107); Glucose 91 mg/dL (70-105); Magnesium 1.9 mg/dL (1.6-2.6); Osmolality,Calculated 294 (280-300); Potassium 3.4 mEq/L (3.5-5.1); Sodium 141 mEq/L (136-145); eGFR For African Americans > 60 (> 60); eGFR For Non-African Americans > 60 (> 60)
[2018-10-03] MEDS: *HR* Heparin 5,000 UNIT/ML VIAL SQ SCH (05:52)
[2018-10-03 06:01] LABS: Lymphocytes # 1.2 K/mcL (0.6-4.6); Monocytes # 2.1 K/mcL (0.0-1.3); Neutrophils # 11.5 K/mcL (1.6-8.9); Platelet Estimate Normal (Normal); Reactive Lymphocytes Present (Not Present)
[2018-10-03] MEDS ORDERED: Aspirin Enteric Coated 81 MG Tablet PO SCH (09:00)
[2018-10-03] MEDS: Multivit/Ca/Min/Fe/FA 1 TAB TABLET PO SCH (09:29)
[2018-10-03] MEDS: Nicotine 14 MG PATCH.TD24 TD SCH (09:29)
[2018-10-03] MEDS: predniSONE 20 MG TABLET PO SCH (09:29)
[2018-10-03] MEDS: Budesonide/Formoterol 160/4.5 1 PUFF INH IH SCH (10:38)
--- NOTE | 2018-10-03 10:51 | Physician Discharge Referral ---
ExtendedCare Referral Info Institutional Level of Care: Skilled - Diagnosis (1) Acute respiratory failure with hypoxia and hypercapnia Priority: Primary Status: Acute (2) COPD with acute exacerbation Priority: Primary Status: Acute (3) Abnormal EKG Priority: Primary Status: Acute (4) Acute kidney injury Priority: Primary Status: Acute (5) Hypotension Priority: Primary Status: Acute (6) Urinary retention Priority: Primary Status: Acute (7) Hyperglycemia Priority: Secondary Status: Acute - Transfer Medications Prescriptions: Aspirin Enteric Coated [Aspirin EC] 81 mg PO DAILY #30 tablet. Metoprolol [Lopressor] 12.5 mg PO BID #60 tablet predniSONE [PredniSONE] 10 mg PO TAPER #21 tablet Home Medications: Albuterol Sulfate [Proventil Inhaler] 0 puff IH Q4HR PRN 09/25/18 [History] Alendronate Sodium [Fosamax] 70 mg PO QWEEK 09/25/18 [History] Benzonatate [Tessalon] 100 mg PO BID PRN 09/25/18 [History] Budesonide/Formoterol 160/4.5 [Symbicort 160/4.5] 2 puff IH BIDR 09/25/18 [History] Calcium Carbonate 650 mg PO DAILY 09/25/18 [History] Ipratropium Neb [Atrovent Neb] 0.5 mg IH Q4HR 09/25/18 [History] Levalbuterol Neb [Xopenex Neb] 1.25 mg IH Q4H 09/25/18 [History] Loratadine [Allergy Relief] 10 mg PO DAILY PRN 09/25/18 [History] Multivitamin [Daily Multiple Vitamin] 1 each PO DAILY 09/25/18 [History] Nicotine Patch [Nicoderm] 14 mg TD DAILY 09/25/18 [History] Omeprazole [PriLOSEC] 20 mg PO DAILY 09/25/18 [History] Sennosides/Docusate Sodium [Senna-Docusate Sodium Tablet] 2 each PO HS 09/25/18 [History] Aspirin Enteric Coated [Aspirin EC] 81 mg PO DAILY #30 tablet. 10/03/18 [Rx] Metoprolol [Lopressor] 12.5 mg PO BID #60 tablet 10/03/18 [Rx] predniSONE [PredniSONE] 10 mg PO TAPER #21 tablet 10/03/18 [Rx] Allergies/Adverse Reactions: Allergy/AdvReac Type Severity Reaction Status Date / Time No Known Allergies Allergy Verified 09/25/18 16:42 - Respiratory Orders Smoking Cessation: Smoking cessation has been advised. For more information, call the [place] Tobacco Quit Line at 2-919-KUYK-NOW. - Rehabiliation Orders Rehab Orders: Evaluation for Physical Therapy, Evaluation for Occupational Therapy - Diet Orders Regular CERTIFICATION: I certify that the transfer of the above named patient to an Extended Care Facility is necessary for the continuing treatment of the diagnosis listed. The above information is true and accurate reflection of patient's current condition. Confidential - Redisclosure prohibited without a patient's written consent.
--- NOTE | 2018-10-03 10:56 | Discharge Summary ---
Orders not resulted at time of discharge: Pending orders 09/25/18 18:10 Culture,Blood [BC] Stat 10/02/18 13:21 Culture,Blood [BC] Stat 10/04/18 04:00 BMP [Basic Metabolic Panel] AM 0400 Complete Blood Count [HEME] AM 0400 Magnesium AM 0400 Date of Encounter: 10/03/18 Time of Encounter: 10:51 - Discharge Diagnosis (1) Acute respiratory failure with hypoxia and hypercapnia Priority: Primary Status: Acute (2) COPD with acute exacerbation Priority: Primary Status: Acute (3) Abnormal EKG Priority: Primary Status: Acute (4) Acute kidney injury Priority: Primary Status: Acute (5) Hypotension Priority: Primary Status: Acute Qualifiers: Hypotension type: unspecified hypotension type Qualified Code(s): I95.9 - Hypotension, unspecified (6) Urinary retention Priority: Primary Status: Acute (7) Hyperglycemia Priority: Secondary Status: Acute Hospital course: Mr. Higgins is a 77 year old male with history of COPD on 2-3 L oxygen daily, GERD, chronic anemia who presented to the emergency department on 09/25/18 from home secondary to a fall and shortness of breath. Over the last 1-2 days the patient has had decreased activity at home, decreased appetite per family and was found sleeping at approximately 1 PM after falling out of the bed by his who called EMS. The patient's initial GCS was 6 and the emergency Department staff placed the patient on high flow nasal cannula and prepared for intubation, but with continued oxygenation the patient's mental status improved. GCS returned to 15 therefore he was placed on BiPAP and further workup was obtained. Laboratory evaluation shows slight leukocytosis up to 12.6, mild anemia of hemoglobin 12.4. Initial ABG shows acidosis with pH of 7.23 and hypercapnia with PCO2 of 89. Patient had mild improvement in his hypercapnia with BiPAP. BMP shows hyperkalemia of 6.0, elevated creatinine to 1.36 with BUN of 29, glucose 146, BNP 126, troponin less than 0.03, lactate 0.9 and CK 55. The patient did have evidence of peaked T waves on his EKG therefore the patient was given IV insulin with dextrose, DuoNeb's and Kayexalate. After giving the p atient a trial of BiPAP he had acute decline in his mental status again and became unresponsive therefore the patient underwent rapid sequence intubation. Chest x-ray shows no significant pulmonary edema or focal consolidation. CT head and cervical spine were obtained and negative for acute fracture or acute intracranial pathology therefore he was admitted to the intensive care unit. He was admitted to the ICU and extubated 4-5 days later and transferred out. Was on IV steroids and transitioned to oral taper at d/c. Urinary retention treated with a manrique catheter which was removed post extubation and did well. Patient did have hyperkalemia which resolved. EKG showed LBBB which was not clear if old or new and he had not chest pain. He was seen by cardiology who will see him outpatient for possible stress test once acute issues resolve. He had a positive blood culture for staph hominis which is likely a contaminant. Repeat blood cultures negative at d/c. He was discharged to SNF on 10/03/18. - Time Spent with Patient Total time spent providing and/or coordinating discharge services: Time spent: Greater than 30 minutes - Discharge Medications Prescriptions: New Aspirin Enteric Coated [Aspirin EC] 81 mg PO DAILY #30 tablet. Metoprolol [Lopressor] 12.5 mg PO BID #60 tablet predniSONE [PredniSONE] 10 mg PO TAPER #21 tablet Continued Omeprazole [PriLOSEC] 20 mg PO DAILY Nicotine Patch [Nicoderm] 14 mg TD DAILY Multivitamin [Daily Multiple Vitamin] 1 each PO DAILY Loratadine [Allergy Relief] 10 mg PO DAILY PRN PRN Reason: Allergy Symptoms Levalbuterol Neb [Xopenex Neb] 1.25 mg IH Q4H Sennosides/Docusate Sodium [Senna-Docusate Sodium Tablet] 2 each PO HS Ipratropium Neb [Atrovent Neb] 0.5 mg IH Q4HR Calcium Carbonate 650 mg PO DAILY Budesonide/Formoterol 160/4.5 [Symbicort 160/4.5] 2 puff IH BIDR Benzonatate [Tessalon] 100 mg PO BID PRN PRN Reason: Cough Alendronate Sodium [Fosamax] 70 mg PO QWEEK Albuterol Sulfate [Proventil Inhaler] 0 puff IH Q4HR PRN PRN Reason: Shortness Of Breath Home Medications: Albuterol Sulfate [Proventil Inhaler] 0 puff IH Q4HR PRN 09/25/18 [History] Alendronate Sodium [Fosamax] 70 mg PO QWEEK 09/25/18 [History] Benzonatate [Tessalon] 100 mg PO BID PRN 09/25/18 [History] Budesonide/Formoterol 160/4.5 [Symbicort 160/4.5] 2 puff IH BIDR 09/25/18 [History] Calcium Carbonate 650 mg PO DAILY 09/25/18 [History] Ipratropium Neb [Atrovent Neb] 0.5 mg IH Q4HR 09/25/18 [History] Levalbuterol Neb [Xopenex Neb] 1.25 mg IH Q4H 09/25/18 [History] Loratadine [Allergy Relief] 10 mg PO DAILY PRN 09/25/18 [History] Multivitamin [Daily Multiple Vitamin] 1 each PO DAILY 09/25/18 [History] Nicotine Patch [Nicoderm] 14 mg TD DAILY 09/25/18 [History] Omeprazole [PriLOSEC] 20 mg PO DAILY 09/25/18 [History] Sennosides/Docusate Sodium [Senna-Docusate Sodium Tablet] 2 each PO HS 09/25/18 [History] Aspirin Enteric Coated [Aspirin EC] 81 mg PO DAILY #30 tablet. 10/03/18 [Rx] Metoprolol [Lopressor] 12.5 mg PO BID #60 tablet 10/03/18 [Rx] predniSONE [PredniSONE] 10 mg PO TAPER #21 tablet 10/03/18 [Rx] Allergies/Adverse Reactions: Allergy/AdvReac Type Severity Reaction Status Date / Time No Known Allergies Allergy Verified 09/25/18 16:42 Date of admission: 09/25/18 18:56 [facility] care physician: [facility] Consults: 09/25/18 22:17 Consult to Pulmonology [CONS] Stat Consulting Provider: [facility] Reason for Consult: COPD exacerbation, intubated Call Completed: No 09/26/18 01:01 Consult to Urology [CONS] Routine Consulting Provider: Urology [facility] Reason for Consult: Unable to pass manrique catheter x3 in intubated patient Call Completed: No 09/27/18 10:13 Consult to Interpret Exam [CONS] Routine Consulting Provider: Santana Jimenez I Consult to Interpret Exam: Interpret EEG 09/27/18 11:07 Consult to Nutrition [CONS] Routine Comment: Consulting Provider: NUTRITION Reason for Dietary Consult: Tube Feed Start & Manage 09/30/18 07:37 Consult to Speech Therapy [CONS] Routine Comment: Evaluate, develop and implement POC Reason for Consult: swallow eval Call Completed: No 09/30/18 10:45 Consult to Occupational Therapy [CONS] Routine Comment: Evaluate, develop and implement POC Reason for Consult: recently extubated, critically ill Does patient have active BEDREST order?: No Is patient medically & hemodynamically stable?: Yes Consult to Physical Therapy [CONS] Routine Comment: Evaluate, develop and implement POC Reason for Consult: recently extubated, critically ill Does patient have active BEDREST order?: No Is patient medically & hemodynamically stable?: Yes 10/01/18 08:56 Consult to Nurse Navigator [CONS] Routine Comment: COPD 10/02/18 10:01 Consult to Occupational Therapy [CONS] Routine Comment: Evaluate, develop and implement POC Reason for Consult: therapy/placement needs Does patient have active BEDREST order?: No Is patient medically & hemodynamically stable?: Yes Consult to Physical Therapy [CONS] Routine Comment: Evaluate, develop and implement POC Reason for Consult: PT eval Does patient have active BEDREST order?: No Is patient medically & hemodynamically stable?: Yes 10/02/18 10:20 Consult to Cardiology [CONS] Routine Comment: Consulting Provider: Cardiology So[facility] Reason for Consult: Abnormal EKG. LBBB. ST depressions Call Completed: No - Constitutional Vitals: Temp Pulse Resp BP Pulse Ox 98.0 F 103 18 135/87 100 10/03/18 07:33 10/03/18 07:33 10/03/18 10:39 10/03/18 07:33 10/03/18 10:39 Exam: GEN: NAD CVS: tachycardia. S1, S2, No m/r/g RESP: diminished. ABD: Soft, NT, ND, +BS EXT: No edema. 2+ DP. No rashes NEURO: Nonfocal - Patient Status Disposition: Home, Self-Care Condition: Critical Overall status at discharge: patient is progressing back to baseline - Discharge Instructions Follow Up With: [facility] [Primary Care Provider[facility] - Celio Lazaro MD [Partnered Physician] - (2 weeks) - Diet and Activity Activity: increase activity as tolerated Diet: regular diet - VTE Documentation of Mechanical Device: Intermittent pneumatic compression device
[2018-10-03] MEDS ORDERED: Potassium Chloride Elixir 20 MEQ/15 ML UDC PO ONE (12:45)
[2018-10-03 15:02] VITALS: BP 112/79
[2018-10-03 17:11] LABS: ABG Base Excess 14 mEq/L (-2 to 3); ABG HCO3 39 mEq/L (21-27); ABG Oxygen Saturation 94 % (95-98); ABG PCO2 52 mmHg (35-45); ABG PH 7.48 pH Units (7.32-7.45); ABG PO2 69 mmHg (85-104); ABG TCO2 41 mEq/L (20-26)
== END 2018-10-03 19:02 | DRG 208 ==
LOC: EMEROOARM 14:52 → SUATTDRO 18:56 → ICNU 18:56 → 2NENU 10-01 16:28
PROVIDERS: ADMIT Internal Medicine; ATTEND Internal Medicine